=== PATIENT | male | born 1960 | race Caucasian/White ===

== ENCOUNTER → 2016-12-26 | Outpatient (CLI) | payer OTHER ==
--- NOTE | 2016-12-26 11:10 | XR ---
EXAMINATION TYPE: XR chest 2V DATE OF EXAM: 12/26/2016 11:05 AM HISTORY: J18.8 pneumonia. REFERENCE: Previous study dated 03/22/2015. FINDINGS: The lungs are clear. Pleural spaces are clear. Heart size is within normal limits. IMPRESSION: NO ACUTE INTRATHORACIC ABNORMALITY.
== END ==
LOC: RADXRMAIN 10:50
PROVIDERS: ATTEND Family Medicine
DX: J18.9 Pneumonia, unspecified organism (principal)
CPT/HCPCS: 71020

== ENCOUNTER → 2017-09-15 | Outpatient (CLI) | payer OTHER ==
--- NOTE | 2017-09-15 12:39 | ECHOF ---
Referral Reason:R07.9 Chest pain MEASUREMENTS -------- HEIGHT: 172.7 cm WEIGHT: 131.5 kg BP: RVIDd: 3.0 cm (< 3.3) IVSd: 1.3 cm (0.6 - 1.1) LVIDd: 4.9 cm (3.9 - 5.3) LVPWd: 1.3 cm (0.6 - 1.1) IVSs: 1.4 cm LVIDs: 3.8 cm LVPWs: 1.6 cm LA Diam: 3.4 cm (2.7 - 3.8) Ao Diam: 3.4 cm (2.0 - 3.7) AV Cusp: 1.5 cm (1.5 - 2.6) LA Diam: 3.8 cm (2.7 - 3.8) MV EXCURSION: 15.228 mm (> 18.000) MV EF SLOPE: 69 mm/s (70 - 150) EPSS: 0.2 cm MV E Chon: 0.61 m/s MV DecT: 250 ms MV A Chon: 0.79 m/s MV E/A Ratio: 0.78 RAP: 5.00 mmHg RVSP: 19.57 mmHg FINDINGS -------- Sinus rhythm. Morbid Obesity The left ventricular size is normal. There is mild concentric left ventricular hypertrophy. Overa ll left ventricular systolic function is low-normal with, an EF between 50 - 55 %. The right ventricle is normal in size. The left atrial size is normal. The right atrial size is normal. The aortic valve was not well visualized. Mild mitral regurgitation is present. Mild tricuspid regurgitation present. There is no evidence of pulmonary hypertension. The right v entricular systolic pressure, as measured by Doppler, is 19.57mmHg. The pulmonic valve was not well visualized. The aortic root size is normal. Echo free space represents a pericardial fat pad. CONCLUSIONS -------- 1. Morbid Obesity 2. The left ventricular size is normal. 3. There is mild concentric left ventricular hypertrophy. 4. Overall left ventricular systolic function is low-normal with, an EF between 50 - 55 %. 5. The aortic valve was not well visualized. 6. Mild mitral regurgitation is present. 7. Mild tricuspid regurgitation present. 8. There is no evidence of pulmonary hypertension. 9. The right ventricular systolic pressure, as measured by Doppler, is 19.57mmHg. 10. The pulmonic valve was not well visualized. 11. The aortic root size is normal. 12. Echo free space represents a pericardial fat pad. ATM SERVICER: Amanda Rangel RDCS
--- NOTE | 2017-09-15 13:28 | ECHOS ---
STRESS ECHOCARDIOGRAM DATE OF SERVICE: 09/15/2017 INDICATION OF THE STUDY: Chest pain. MEDICATIONS: BASELINE HEART RATE: 106 BASELINE BLOOD PRESSURE: 143/63 MAXIMUM HEART RATE: 135 MAXIMUM BLOOD PRESSURE: 177/68 85% MPHR: 141 100% MPHR: 166 METS: 5.6 MAXIMUM STAGE REACHED: II TOTAL EXERCISE TIME: 4 minutes CLINICAL INFORMATION: STRESS DATA: Pretesting physical examination showed a heart rate of 106, pressure is 143/63 mmHg. Baseline EKG showed sinus mechanism. The patient exercised on the treadmill according to Yamil protocol for a total of 4 minutes and achieved 5.6 METs. Max heart rate was 135, which is about 81% of maximum predicted heart rate. Maximum blood pressure was 177/68 mmHg. Clinically, the patient did not have any chest pain, but developed shortness of breath. The EKG did not show any significant ST or T-wave abnormalities consistent with ischemia. ECHOCARDIOGRAM IMAGES: On echocardiogram images from parasternal long axis view, parasternal short axis view, apical 4 chamber and apical 2 chamber views were obtained as the baseline images, at the peak of the heart rate, as well as on recovery. The echocardiogram images did not show any obvious wall motion abnormalities consistent with ischemia. CONCLUSION: 1. Average exercise capacity. 2. Normal EKG in response to exercise. 3. Normal echocardiogram in response to exercise. MMODL / IJN: [id number] /
== END | disposition home or self-care (01) ==
LOC: RADNMMAIN 09:59
PROVIDERS: ATTEND Family Medicine
DX: I08.1 Rheumatic disorders of both mitral and tricuspid valves (principal); E66.01 Morbid (severe) obesity due to excess calories
CPT/HCPCS: 93017; 93306; C8928; Q9950; 93350

== ENCOUNTER → 2019-02-09 | Outpatient (CLI) | payer OTHER ==
--- NOTE | 2019-02-09 16:29 | NM ---
EXAMINATION TYPE: NM DatScan Brain SPECT DATE OF EXAM: 02/09/2019 COMPARISON: NONE HISTORY: Trauma TECHNIQUE: 10 drops of Lugol's solution was administered 1 hour prior to injection as a thyroid bloc bhavya agent. After the administration of 4.59 mCi I-123 Ioflupane DaTscan. Images obtained 3 hours p ost injection. SPECT images of the brain were acquired with axial and coronal reconstructions. FINDINGS: There is normal uptake along the striata. Uptake is symmetric and normal in shape. IMPRESSION: Normal Amber scan
== END | disposition home or self-care (01) ==
LOC: RADNMMAIN 10:17
PROVIDERS: ATTEND Psychiatry & Neurology Neurology
DX: G25.0 Essential tremor (principal)
CPT/HCPCS: 78607; A9584

== ENCOUNTER 2020-05-15 17:38 | Emergency (ER) | payer OTHER ==
[2020-05-15 17:50] VITALS: TEMP 98.6
--- NOTE | 2020-05-15 17:58 | ED ---
Recheck HPI - General Chief Complaint: Recheck/Abnormal Lab/Rx Stated Complaint: hypertension Time Seen by Provider: 05/15/20 17:52 Source: patient, RN notes reviewed, old records reviewed Mode of arrival: wheelchair Limitations: no limitations - History of Present Illness Initial Comments: This is a 39-year-old male DF for evaluation patient has been noncompliant patient for both blood pressure medication as well as other medications including Coumadin. History of DVTs coming with lower extremity swelling shortness of breath episodic chest pain. No travel history sick contacts. No fevers, occasional cough and is also suffered from COPD. No recent hospitalizations. Patient states patient has recently lost his insurance and was unable to get medications for felt MD Complaint: medication refill request, other (Swelling of lower extremity shortness of breath and chest pain) -: days(s) Returns Today for: request for prescription, persistent/worsening pain related t o initial visit Symptoms Since Prior Visit: no new symptoms Context: planned re-check (Sent to ER for evaluation) Associated Symptoms: none Treatments Prior to Arrival: cold therapy - Related Data Previous Rx's Medication Instructions Recorded Metoprolol Tartrate [Lopressor] 25 mg PO BID #30 tablet 03/22/15 Metoprolol Tartrate [Lopressor] 50 mg PO BID #60 tab 05/15/20 Allergies Allergy/AdvReac Type Severity Reaction Status Date / Time Penicillins Allergy Rash/Hives Verified 05/15/20 17:50 venom-honey bee Allergy Anaphylaxis Verified 05/15/20 17:50 [bee venom (honey bee)] Review of Systems ROS Statement: Those systems with pertinent positive or pertinent negative responses have been documented in the HPI. ROS Other: All systems not noted in ROS Statement are negative. Past Medical History Past Medical History: COPD, Diabetes Mellitus, Deep Vein Thrombosis (DVT), Hypertension History of Any Multi-Drug Resistant Organisms: None Reported Past Surgical History: Hernia Repair, Orthopedic Surgery Additional Past Surgical History / Comment(s): recent removal of all upper teeth, olayinka toe amputation Past Psychological History: No Psychological Hx Reported Smoking Status: Current every day smoker Past Alcohol Use History: None Reported Past Drug Use History: Marijuana General Exam Limitations: no limitations General appearance: alert, in no apparent distress Head exam: Present: atraumatic, normocephalic, normal inspection Eye exam: Present: normal appearance, PERRL, EOMI. Absent: scleral icterus, conjunctival injection, periorbital swelling ENT exam: Present: normal exam, mucous membranes moist Neck exam: Present: normal inspection. Absent: tenderness, meningismus, lymphadenopathy Respiratory exam: Present: normal lung sounds bilaterally. Absent: respiratory distress, wheezes, rales, rhonchi, stridor Cardiovascular Exam: Present: regular rate, normal rhythm, normal heart sounds. Absent: systolic murmur, diastolic murmur, rubs, gallop, clicks GI/Abdominal exam: Present: soft, normal bowel sounds. Absent: distended, tenderness, guarding, rebound, rigid Extremities exam: Present: normal inspection, full ROM, normal capillary refill. Absent: tenderness, pedal edema, joint swelling, calf tenderness Back exam: Present: normal inspection Neurological exam: Present: alert, oriented X3, CN II-XII intact Psychiatric exam: Present: normal affect, normal mood Skin exam: Present: warm, dry, intact, normal color. Absent: rash Course Vital Signs 05/15/20 05/15/20 05/15/20 17:45 18:21 18:27 Temperature 98.6 F Pulse Rate 98 89 Respiratory 18 20 22 Rate Blood Pressure 155/92 O2 Sat by Pulse 99 Oximetry 05/15/20 05/15/20 18:43 19:08 Temperature Pulse Rate 92 85 Respiratory 20 18 Rate Blood Pressure 120/68 O2 Sat by Pulse 98 Oximetry - Reevaluation(s) Reevaluation #1: 05/15/20 19:14 Medical record is reviewed Reevaluation #2: 05/15/20 20:04 Patient feels much improved no significant complaints here in the ER Reevaluation #3: 05/15/20 20:04 Patient feels good for discharge with the medication refill 05/15/20 20:04 Patient is not on blood thinners but to fact that he has no DVT or PE and exams, we will hold blood thinners Medical Decision Making - Medical Decision Making 59 male DF for evaluation presents today for evaluation regards to multiple complaints foot blood pressure being abnormal shortness of breath and swelling of lower extremities. Patient does have mild heart failure, breathing. Patient appropriate. We'll refill patient's blood pressure medication and can be discharged home - Lab Data Result diagrams: 05/15/20 18:13 05/15/20 18:13 Lab Results 05/15/20 05/15/2005/15/20 Range/Units 18:13 18:13 18:13 WBC 10.4 (3.8-10.6) k/uL RBC 5.09 (4.30-5.90) m/uL Hgb 16.0 (13.0-17.5) gm/dL Hct 49.0 (39.0-53.0) % MCV 96.4 (80.0-100.0) fL MCH 31.5 (25.0-35.0) pg MCHC 32.6 (31.0-37.0) g/dL RDW 12.6 (11.5-15.5) % Plt Count 278 (150-450) k/uL Neutrophils % 49 % Lymphocytes % 38 % Monocytes % 5 % Eosinophils % 6 % Basophils % 1 % Neutrophils # 5.2 (1.3-7.7) k/uL Lymphocytes # 3.9 (1.0-4.8) k/uL Monocytes # 0.5 (0-1.0) k/uL Eosinophils # 0.6 (0-0.7) k/uL Basophils # 0.1 (0-0.2) k/uL PT 9.5 (9.0-12.0) sec INR 0.9 (<1.2) APTT 20.7 L (22.0-30.0) sec D-Dimer 0.29 (<0.60) mg/L FEU Sodium 139 (137-145) mmol/L Potassium 4.3 (3.5-5.1) mmol/L Chloride 106 (98-107) mmol/L Carbon Dioxide 25 (22-30) mmol/L Anion Gap 8 mmol/L BUN 12 (9-20) mg/dL Creatinine 0.83 (0.66-1.25) mg/dL Est GFR (CKD-EPI)AfAm >90 (>60 ml/min/1.73 sqM) Est GFR (CKD-EPI)NonAf >90 (>60 ml/min/1.73 sqM) Glucose 185 H (74-99) mg/dL Calcium 9.7 (8.4-10.2) mg/dL Phosphorus 3.5 (2.5-4.5) mg/dL Magnesium 1.8 (1.6-2.3) mg/dL Total Bilirubin 0.6 (0.2-1.3) mg/dL AST 30 (17-59) U/L ALT 24 (4-49) U/L Alkaline Phosphatase 68 (38-126) U/L Creatine Kinase 52 L (55-170) U/L Troponin I (0.000-0.034) ng/mL NT-Pro-B Natriuret Pep pg/mL Total Protein 7.6 (6.3-8.2) g/dL Albumin 4.4 (3.5-5.0) g/dL 05/15/20 05/15/20 Range/Units 18:13 18:13 WBC (3.8-10.6) k/uL RBC (4.30-5.90) m/uL Hgb (13.0-17.5) gm/dL Hct (39.0-53.0) % MCV (80.0-100.0) fL MCH (25.0-35.0) pg MCHC (31.0-37.0) g/dL RDW (11.5-15.5) % Plt Count (150-450) k/uL Neutrophils % % Lymphocytes % % Monocytes % % Eosinophils % % Basophils % % Neutrophils # (1.3-7.7) k/uL Lymphocytes # (1.0-4.8) k/uL Monocytes # (0-1.0) k/uL Eosinophils # (0-0.7) k/uL Basophils # (0-0.2) k/uL PT (9.0-12.0) sec INR (<1.2) APTT (22.0-30.0) sec D-Dimer (<0.60) mg/L FEU Sodium (137-145) mmol/L Potassium (3.5-5.1) mmol/L Chloride (98-107) mmol/L Carbon Dioxide (22-30) mmol/L Anion Gap mmol/L BUN (9-20) mg/dL Creatinine (0.66-1.25) mg/dL Est GFR (CKD-EPI)AfAm (>60 ml/min/1.73 sqM) Est GFR (CKD-EPI)NonAf (>60 ml/min/1.73 sqM) Glucose (74-99) mg/dL Calcium (8.4-10.2) mg/dL Phosphorus (2.5-4.5) mg/dL Magnesium (1.6-2.3) mg/dL Total Bilirubin (0.2-1.3) mg/dL AST (17-59) U/L ALT (4-49) U/L Alkaline Phosphatase (38-126) U/L Creatine Kinase (55-170) U/L Troponin I <0.012 (0.000-0.034) ng/mL NT-Pro-B Natriuret Pep 34 pg/mL Total Protein (6.3-8.2) g/dL Albumin (3.5-5.0) g/dL - EKG Data -: EKG Interpreted by Me (EKG is sinus rhythm 97 HI 134 QRS 160 QTc 474) - Radiology Data Radiology results: report reviewed (Ultrasound bilateral lower extremities and CT chest is negative for acute disease, chest x-ray is also negative), image reviewed Disposition Clinical Impression: Hypertension, COPD (chronic obstructive pulmonary disease), Bilateral leg edema Disposition: HOME SELF-CARE Condition: Good Instructions (If sedation given, give patient instructions): Hypertension (ED), Leg Edema (ED) Prescriptions: Metoprolol Tartrate [Lopressor] 50 mg PO BID #60 tab Is patient prescribed a controlled substance at d/c from ED?: No Referrals: Evelyn Cash MD [Primary Care Provider] - 1-2 days
[2020-05-15] MEDS ORDERED: IPRATROPIUM-ALBUTEROL 3 ML NEB INHALATION STA (18:12)
[2020-05-15] MEDS ORDERED: LABETALOL 5 MG/ML VIAL MDV IVP STA (18:12)
[2020-05-15 18:32] LABS: Basophils # (A) 0.1 k/uL (0-0.2); Basophils % (A) 1 %; Eosinophils # (A) 0.6 k/uL (0-0.7); Eosinophils % (A) 6 %; Lymphocytes # (A) 3.9 k/uL (1.0-4.8); Lymphocytes % (A) 38 %; MCH 31.5 pg (25.0-35.0); MCHC 32.6 g/dL (31.0-37.0); MCV 96.4 fL (80.0-100.0); Mean Platelet Volume 6.6; Monocytes # (A) 0.5 k/uL (0-1.0); Monocytes % (A) 5 %; Neutrophils # (A) 5.2 k/uL (1.3-7.7); Neutrophils % (A) 49 %; Platelet Count 278 k/uL (150-450); RBC 5.09 m/uL (4.30-5.90); RDW 12.6 % (11.5-15.5); WBC 10.4 k/uL (3.8-10.6)
--- NOTE | 2020-05-15 18:37 | XR ---
EXAMINATION TYPE: XR chest 2V DATE OF EXAM: 05/15/2020 COMPARISON: Prior chest x-ray 12/26/2016 HISTORY: Weakness and shortness of breath TECHNIQUE: Frontal and lateral views of the chest are obtained. FINDINGS: There is no focal air space opacity, pleural effusion, or pneumothorax seen. The cardiac silhouette size is within normal limits. The osseous structures are intact, there is thoracic spond ylosis. IMPRESSION: No acute cardiopulmonary process.
[2020-05-15 18:38] LABS: ALT 24 U/L (4-49); AST 30 U/L (17-59); African American GFR (CKD) >90 (>60 ml/min/1.73 sqM); Albumin 4.4 g/dL (3.5-5.0); Alkaline Phosphatase 68 U/L (38-126); Anion Gap 8 mmol/L; Blood Urea Nitrogen 12 mg/dL (9-20); Calcium 9.7 mg/dL (8.4-10.2); Carbon Dioxide 25 mmol/L (22-30); Chloride 106 mmol/L (98-107); Creatine Kinase 52 U/L (55-170); Glucose 185 mg/dL (74-99); Magnesium 1.8 mg/dL (1.6-2.3); Non-African American GFR(CKD) >90 (>60 ml/min/1.73 sqM); Phosphorus 3.5 mg/dL (2.5-4.5); Potassium 4.3 mmol/L (3.5-5.1); Sodium 139 mmol/L (137-145); Total Bilirubin 0.6 mg/dL (0.2-1.3); Total Protein 7.6 g/dL (6.3-8.2)
[2020-05-15] MEDS ORDERED: MORPHINE SULFATE 4 MG/ML SYRINGE IVP STA (18:57)
[2020-05-15] MEDS ORDERED: MORPHINE SULFATE 4 MG/ML SYRINGE IVP PRN (18:57)
[2020-05-15 18:59] LABS: D-Dimer 0.29 mg/L FEU (<0.60); INR 0.9 (<1.2); Prothrombin Time 9.5 sec (9.0-12.0)
[2020-05-15 19:12] LABS: Partial Thromboplastin Time 20.7 sec (22.0-30.0)
--- NOTE | 2020-05-15 19:30 | US ---
EXAMINATION TYPE: US venous doppler duplex LE DATE OF EXAM: 05/15/2020 7:14 PM COMPARISON: NONE CLINICAL HISTORY: pain. Pain bilateral legs. Hx DVT per patient. Patient does not take blood thinners . SIDE PERFORMED: Bilateral TECHNIQUE: The lower extremity deep venous system is examined utilizing real time linear array sonog lyssa with graded compression, doppler sonography and color-flow sonography. VESSELS IMAGED: External Iliac Vein (EIV) Common Femoral Vein Deep Femoral Vein Greater Saphenous Vein * Femoral Vein Popliteal Vein Small Saphenous Vein * Proximal Calf Veins (* superficial vessels) Grayscale, color Doppler, spectral Doppler imaging performed of the deep veins of the lower extremiti es Right Leg: No evidence of DVT in veins imaged at this time from prox calf veins to EIV. Left Leg: No evidence of DVT in veins imaged at this time from prox calf veins to EIV. IMPRESSION: No deep venous thrombosis at or above the knees bilaterally.
--- NOTE | 2020-05-15 19:50 | CT ---
EXAMINATION TYPE: CT angio chest DATE OF EXAM: 05/15/2020 COMPARISON: Left wrist and left hand HISTORY: Leg pain, history of dvt, elevated blood pressure and headache. CT DLP: 713.4 mGycm Automated exposure control for dose reduction was used. CONTRAST: CTA scan of the thorax is performed with IV Contrast, patient injected with 100 mL of Isovue 370, pul monary embolism protocol. MIP images are created and reviewed. 3D reconstructed images are created on an independent workstation and reviewed. FINDINGS: LUNGS: The lungs are grossly clear, there is no concerning parenchymal mass or nodule identified. T here is no pleural effusion or pneumothorax seen. The tracheobronchial tree is patent. AORTA: Proximal descending aorta is ectatic at 3.2 cm. MEDIASTINUM: There is satisfactory enhancement of the pulmonary artery and its branches, there is no CT evidence for pulmonary embolism. There are no greater than 1 cm hilar or mediastinal lymph nodes. No pericardial effusion is seen. OTHER: Reflux of contrast into the inferior vena cava and hepatic veins is noted, correlate to exclu de right heart failure. IMPRESSION: NO EVIDENT PULMONARY EMBOLISM. PROXIMAL DESCENDING AORTA SHOWS ECTASIA, ADDITIONAL FINDINGS ABOVE
[2020-05-15] MEDS ORDERED: methylPREDNISolone SOD SUCCI 125 MG/2 ML VIAL IV STA (20:06)
[2020-05-15] MEDS ORDERED: FUROSEMIDE 10 MG/ML 4 ML VIAL IV STA (20:06)
[2020-05-15] MEDS ORDERED: ACET/COD 300 MG/30 MG STARTER PACK 6 TAB BTL PO STA (20:16)
[2020-05-15 20:22] VITALS: BP 132/68; PULSE 83; RESP 16
== END 2020-05-15 20:22 | disposition home or self-care (01) ==
LOC: EC 17:38
DX: I10 Essential (primary) hypertension (principal); J44.9 Chronic obstructive pulmonary disease, unspecified; R60.0 Localized edema; F17.200 Nicotine dependence, unspecified, uncomplicated; Z88.0 Allergy status to penicillin; Z91.030 Bee allergy status; Z86.718 Personal history of other venous thrombosis and embolism; Z91.19 Patient's noncompliance with other medical treatment and regimen
CPT/HCPCS: 36415; 94640; 93005; 85379; 83880; 80053; 82550; 83735; 84100; 84484; 85025; 85610; 85730; 71046; 93970; 71275; 99284; 96374; 96375 ×3; J2270; J1940; J2930; Q9967

== ENCOUNTER 2020-08-13 13:58 | Emergency (ER) | payer OTHER ==
[2020-08-13 14:11] VITALS: TEMP 99.1
[2020-08-13] MEDS ORDERED: SODIUM CHLORIDE 0.9% 500 ML 500 ML IV STA ×2 (15:09→17:36)
[2020-08-13] MEDS ORDERED: IPRATROPIUM-ALBUTEROL 3 ML NEB INHALATION STA (15:09)
[2020-08-13] MEDS ORDERED: MORPHINE SULFATE 2 MG/ML SYRINGE IVP STA (15:14)
[2020-08-13] MEDS ORDERED: methylPREDNISolone SOD SUCCI 125 MG/2 ML VIAL IV STA (15:15)
--- NOTE | 2020-08-13 15:17 | ED ---
General Adult HPI - General Source: patient, RN notes reviewed Mode of arrival: wheelchair Limitations: no limitations <Hector Pinzon - Last Filed: 08/13/20 17:53> <Chanelle Kothari - Last Filed: 08/14/20 13:21> - General Chief complaint: Shortness of Breath Stated complaint: High BP, Diff Breathing, COPD Time Seen by Provider: 08/13/20 14:59 - History of Present Illness Initial comments: 59-year-old male with a past medical history of COPD, diabetes mellitus, DVT, hypertension presents to the emergency room for a chief complaint of cough and shortness of breath for the past 3 days. The cough is productive at times. States when he coughs he feels a soreness in his chest. Denies any chest pain if he is not coughing. States it hurts to press on his chest. Patient states he does not have an inhaler at home because he has not followed up with his doctor. He denies fevers. Patient has no other complaints at this time including abdominal pain, nausea or vomiting, headache, or visual changes. (Hector Pinzon) - Related Data Home Medications Medication Instructions Recorded Confirmed Ibuprofen [Motrin Ib] 400 - 600 mg PO Q4-6H PRN 08/13/20 08/13/20 Previous Rx's Medication Instructions Recorded Albuterol Inhaler [Ventolin Hfa 2 puff INHALATION RT-QID PRN #1 08/13/20 Inhaler] inhaler Azithromycin [Zithromax Z-pack (6 250 mg PO DIRECTED #6 tab 08/13/20 tabs)] Metoprolol Tartrate [Lopressor] 50 mg PO BID #30 tab 08/13/20 predniSONE 50 mg PO DAILY #5 tablet 08/13/20 Allergies Allergy/AdvReac Type Severity Reaction Status Date / Time acetaminophen [From Fioricet] Allergy Anaphylaxis Verified 08/13/20 17:16 butalbital [From Fioricet] Allergy Anaphylaxis Verified 08/13/20 17:16 caffeine [From Fioricet] Allergy Anaphylaxis Verified 08/13/20 17:16 Penicillins Allergy Rash/Hives Verified 08/13/20 17:16 venom-honey bee Allergy Anaphylaxis Verified 08/13/20 17:16 [bee venom (honey bee)] Review of Systems ROS Other: All systems not noted in ROS Statement are negative. <Hector Pinzon P - Last Filed: 08/13/20 17:53> ROS Other: All systems not noted in ROS Statement are negative. <Chanelle Kothari Omayra - Last Filed: 08/14/20 13:21> ROS Statement: Those systems with pertinent positive or pertinent negative responses have been documented in the HPI. Past Medical History Past Medical History: COPD, Diabetes Mellitus, Deep Vein Thrombosis (DVT), Hypertension History of Any Multi-Drug Resistant Organisms: None Reported Past Surgical History: Hernia Repair, Orthopedic Surgery Additional Past Surgical History / Comment(s): recent removal of all upper teeth, olayinka toe amputation Past Psychological History: No Psychological Hx Reported Smoking Status: Current every day smoker Past Alcohol Use History: None Reported Past Drug Use History: Marijuana <Hector Pinzon P - Last Filed: 08/13/20 17:53> General Exam Limitations: no limitations General appearance: alert, in no apparent distress Head exam: Present: atraumatic, normocephalic, normal inspection Eye exam: Present: normal appearance, PERRL, EOMI. Absent: scleral icterus, conjunctival injection, periorbital swelling ENT exam: Present: normal exam, mucous membranes moist Neck exam: Present: normal inspection, full ROM. Absent: tenderness, meningismu s Respiratory exam: Present: wheezes, chest wall tenderness (Generalized anterior chest wall tenderness.). Absent: respiratory distress, rales, rhonchi, stridor Cardiovascular Exam: Present: regular rate, normal rhythm, normal heart sounds. Absent: systolic murmur, diastolic murmur, rubs, gallop, clicks GI/Abdominal exam: Present: soft, normal bowel sounds. Absent: distended, tenderness, guarding, rebound, rigid Neurological exam: Present: alert <Hector Pinzon - Last Filed: 08/13/20 17:53> Course Vital Signs 08/13/20 08/13/20 08/13/20 14:09 15:46 15:55 Temperature 99.1 F Pulse Rate 91 90 Respiratory 32 H 20 Rate Blood Pressure 175/93 177/82 O2 Sat by Pulse 100 98 Oximetry 08/13/20 16:02 Temperature Pulse Rate 90 Respiratory Rate Blood Pressure O2 Sat by Pulse Oximetry EKG Findings - EKG Comments: EKG Findings:: Normal sinus rhythm, ventricular rate 74, NE interval 120, QTC 4 57, evaluated by Dr. Kothari <Hector Pinzon - Last Filed: 08/13/20 17:53> Medical Decision Making - Lab Data Result diagrams: 08/13/20 15:25 08/13/20 15:25 <Hector Pinzon - Last Filed: 08/13/20 17:53> - Lab Data Result diagrams: 08/13/20 15:25 08/13/20 15:25 <Chanelle Kothari - Last Filed: 08/14/20 13:21> - Medical Decision Making HPI and physical exam as documented. Patient initially presents with a slightly elevated respiratory rate of 32 however this did improve. No respira tory distress. 100% on room air. Laboratory evaluation was performed. CBC unremarkable. White blood cell count is less than 12. CMP unremarkable. Troponin negative. EKG nonischemic. D-dimer is within normal limits. COVID and influenza are negative. Chest x-ray shows increased density right medial lung base that may reflect developing infiltrate. This is clinically correlated as patient does have a cough. Patient was treated with antibiotics and DuoNeb and feeling much better. He was also given steroids. Patient does not meet Sirs criteria. Lactic acidosis is likely secondary to dehydration. I offered patient admission however he prefers to be discharged home given pandemic. He is agreeable to returning if he has any worsening symptoms.I discussed this case with attending Dr. Kothari who agrees with this assessment and treatment plan. (Hector Pinzon) I was available for consultation in the emergency department. The history and physical exam were done by the midlevel provider. I was consulted for this patients care. I reviewed the case with the midlevel provider and based on their presentation of the patient, I agree with the assessment, medical decision making and plan of care as documented. Admission recommended however patient refused due to covid Chart was dictated using Layer dictation software. Attempts were made to correct any dictation errors however some typographical errors may persist. Patient was seen during a national state of emergency due to the Covid-19 pandemic. (Chanelle Kothari) - Lab Data Lab Results 08/13/20 08/13/20 08/13/20 Range/Units 15:25 15:25 15:25 WBC 10.1 (3.8-10.6) k/uL RBC 4.84 (4.30-5.90) m/uL Hgb 15.9 (13.0-17.5) gm/dL Hct 47.0 (39.0-53.0) % MCV 97.0 (80.0-100.0) fL MCH 32.9 (25.0-35.0) pg MCHC 33.9 (31.0-37.0) g/dL RDW 12.6 (11.5-15.5) % Plt Count 263 (150-450) k/uL MPV 7.3 Neutrophils % 65 % Lymphocytes % 25 % Monocytes % 4 % Eosinophils % 4 % Basophils % 1 % Neutrophils # 6.5 (1.3-7.7) k/uL Lymphocytes # 2.5 (1.0-4.8) k/uL Monocytes # 0.4 (0-1.0) k/uL Eosinophils # 0.4 (0-0.7) k/uL Basophils # 0.1 (0-0.2) k/uL PT (9.0-12.0) sec INR (<1.2) APTT (22.0-30.0) sec D-Dimer (<0.60) mg/L FEU Sodium 138 (137-145) mmol/L Potassium 4.5 (3.5-5.1) mmol/L Chloride 107 (98-107) mmol/L Carbon Dioxide 27 (22-30) mmol/L Anion Gap 4 mmol/L BUN 12 (9-20) mg/dL Creatinine 0.82 (0.66-1.25) mg/dL Est GFR (CKD-EPI)AfAm >90 (>60 ml/min/1.73 sqM) Est GFR (CKD-EPI)NonAf >90 (>60 ml/min/1.73 sqM) Glucose 165 H (74-99) mg/dL Lactic Ac Sepsis Rflx Plasma Lactic Acid Ajit 2.3 H* (0.7-2.0) mmol/L Calcium 9.5 (8.4-10.2) mg/dL Magnesium 1.8 (1.6-2.3) mg/dL Total Bilirubin 0.6 (0.2-1.3) mg/dL AST 25 (17-59) U/L ALT 22 (4-49) U/L Alkaline Phosphatase 56 (38-126) U/L Troponin I (0.000-0.034) ng/mL NT-Pro-B Natriuret Pep pg/mL Total Protein 6.8 (6.3-8.2) g/dL Albumin 4.0 (3.5-5.0) g/dL Coronavirus (PCR) (Not Detectd) Influenza Type A RNA (Not Detectd) Influenza Type B (PCR) (Not Detectd) 08/13/20 08/13/20 08/13/20 Range/Units 15:25 15:25 15:25 WBC (3.8-10.6) k/uL RBC (4.30-5.90) m/uL Hgb (13.0-17.5) gm/dL Hct (39.0-53.0) % MCV (80.0-100.0) fL MCH (25.0-35.0) pg MCHC (31.0-37.0) g/dL RDW (11.5-15.5) % Plt Count (150-450) k/uL MPV Neutrophils % % Lymphocytes % % Monocytes % % Eosinophils % % Basophils % % Neutrophils # (1.3-7.7) k/uL Lymphocytes # (1.0-4.8) k/uL Monocytes # (0-1.0) k/uL Eosinophils # (0-0.7) k/uL Basophils # (0-0.2) k/uL PT (9.0-12.0) sec INR (<1.2) APTT (22.0-30.0) sec D-Dimer (<0.60) mg/L FEU Sodium (137-145) mmol/L Potassium (3.5-5.1) mmol/L Chloride (98-107) mmol/L Carbon Dioxide (22-30) mmol/L Anion Gap mmol/L BUN (9-20) mg/dL Creatinine (0.66-1.25) mg/dL Est GFR (CKD-EPI)AfAm (>60 ml/min/1.73 sqM) Est GFR (CKD-EPI)NonAf (>60 ml/min/1.73 sqM) Glucose (74-99) mg/dL Lactic Ac Sepsis Rflx Plasma Lactic Acid Ajit (0.7-2.0) mmol/L Calcium (8.4-10.2) mg/dL Magnesium (1.6-2.3) mg/dL Total Bilirubin (0.2-1.3) mg/dL AST (17-59) U/L ALT (4-49) U/L Alkaline Phosphatase (38-126) U/L Troponin I <0.012 (0.000-0.034) ng/mL NT-Pro-B Natriuret Pep 253 pg/mL Total Protein (6.3-8.2) g/dL Albumin (3.5-5.0) g/dL Coronavirus (PCR) Not Detected (Not Detectd) Influenza Type A RNA (Not Detectd) Influenza Type B (PCR) (Not Detectd) 08/13/20 08/13/20 08/13/20 Range/Units 15:25 15:54 16:27 WBC (3.8-10.6) k/uL RBC (4.30-5.90) m/uL Hgb (13.0-17.5) gm/dL Hct (39.0-53.0) % MCV (80.0-100.0) fL MCH (25.0-35.0) pg MCHC (31.0-37.0) g/dL RDW (11.5-15.5) % Plt Count (150-450) k/uL MPV Neutrophils % % Lymphocytes % % Monocytes % % Eosinophils % % Basophils % % Neutrophils # (1.3-7.7) k/uL Lymphocytes # (1.0-4.8) k/uL Monocytes # (0-1.0) k/uL Eosinophils # (0-0.7) k/uL Basophils # (0-0.2) k/uL PT 9.8 (9.0-12.0) sec INR 0.9 (<1.2) APTT 20.4 L (22.0-30.0) sec D-Dimer 0.23 (<0.60) mg/L FEU Sodium (137-145) mmol/L Potassium (3.5-5.1) mmol/L Chloride (98-107) mmol/L Carbon Dioxide (22-30) mmol/L Anion Gap mmol/L BUN (9-20) mg/dL Creatinine (0.66-1.25) mg/dL Est GFR (CKD-EPI)AfAm (>60 ml/min/1.73 sqM) Est GFR (CKD-EPI)NonAf (>60 ml/min/1.73 sqM) Glucose (74-99) mg/dL Lactic Ac Sepsis Rflx Y Plasma Lactic Acid Ajit (0.7-2.0) mmol/L Calcium (8.4-10.2) mg/dL Magnesium (1.6-2.3) mg/dL Total Bilirubin (0.2-1.3) mg/dL AST (17-59) U/L ALT (4-49) U/L Alkaline Phosphatase (38-126) U/L Troponin I (0.000-0.034) ng/mL NT-Pro-B Natriuret Pep pg/mL Total Protein (6.3-8.2) g/dL Albumin (3.5-5.0) g/dL Coronavirus (PCR) (Not Detectd) Influenza Type A RNA Not Detected (Not Detectd) Influenza Type B (PCR) Not Detected (Not Detectd) Disposition Is patient prescribed a controlled substance at d/c from ED?: No Time of Disposition: 17:58 <Hector Pinzon P - Last Filed: 08/13/20 17:53> <Chanelle Kothari - Last Filed: 08/14/20 13:21> Clinical Impression: COPD exacerbation, Pneumonia Disposition: HOME SELF-CARE Condition: Good Instructions (If sedation given, give patient instructions): COPD (Chronic Obstructive Pulmonary Disease) (ED), Pneumonia (ED) Additional Instructions: Please take medications as directed. You were already given steroid and antibiotic today so you may start these tomorrow. Follow-up with your doctor. If you develop worsening symptoms or worsening shortness of breath return to the emergency room. Prescriptions: Metoprolol Tartrate [Lopressor] 50 mg PO BID #30 tab predniSONE 50 mg PO DAILY #5 tablet Albuterol Inhaler [Ventolin Hfa Inhaler] 2 puff INHALATION RT-QID PRN #1 inhaler PRN Reason: Shortness Of Breath Azithromycin [Zithromax Z-pack (6 tabs)] 250 mg PO DIRECTED #6 tab Referrals: Evelyn Cash MD [Primary Care Provider] - 1-2 days
[2020-08-13 15:38] LABS: Basophils # (A) 0.1 k/uL (0-0.2); Basophils % (A) 1 %; Eosinophils # (A) 0.4 k/uL (0-0.7); Eosinophils % (A) 4 %; HGB 15.9 gm/dL (13.0-17.5); Lymphocytes # (A) 2.5 k/uL (1.0-4.8); Lymphocytes % (A) 25 %; MCH 32.9 pg (25.0-35.0); MCHC 33.9 g/dL (31.0-37.0); Mean Platelet Volume 7.3; Monocytes # (A) 0.4 k/uL (0-1.0); Monocytes % (A) 4 %; Neutrophils # (A) 6.5 k/uL (1.3-7.7); Neutrophils % (A) 65 %; Platelet Count 263 k/uL (150-450); RBC 4.84 m/uL (4.30-5.90); RDW 12.6 % (11.5-15.5); WBC 10.1 k/uL (3.8-10.6)
[2020-08-13 15:46] LABS: ALT 22 U/L (4-49); AST 25 U/L (17-59); African American GFR (CKD) >90 (>60 ml/min/1.73 sqM); Alkaline Phosphatase 56 U/L (38-126); Anion Gap 4 mmol/L; Blood Urea Nitrogen 12 mg/dL (9-20); Calcium 9.5 mg/dL (8.4-10.2); Carbon Dioxide 27 mmol/L (22-30); Chloride 107 mmol/L (98-107); Glucose 165 mg/dL (74-99); Magnesium 1.8 mg/dL (1.6-2.3); Non-African American GFR(CKD) >90 (>60 ml/min/1.73 sqM); Potassium 4.5 mmol/L (3.5-5.1); Sodium 138 mmol/L (137-145); Total Bilirubin 0.6 mg/dL (0.2-1.3); Total Protein 6.8 g/dL (6.3-8.2)
[2020-08-13 15:47] VITALS: BP 177/82; RESP 20
--- NOTE | 2020-08-13 15:49 | XR ---
EXAMINATION TYPE: XR chest 1V portable DATE OF EXAM: 08/13/2020 HISTORY: Shortness of breath. COMPARISON: 05/15/2020 TECHNIQUE: Single view of the chest is submitted. FINDINGS: Demonstrated are scattered senescent parenchymal change. Increased density right medial lung base may reflect developing infiltrate. Correlate clinically and progress studies are recommended. The heart is stable. Hilar and mediastinal structures are within normal limits. Degenerative changes are seen of the dorsal spine. IMPRESSION: 1. Increased density right medial lung base may reflect developing infiltrate. Correlate clinically and progress studies are recommended.
[2020-08-13 15:56] VITALS: PULSE 90
[2020-08-13] MEDS ORDERED: cefTRIAXone IN SWFI 1,000 MG/10 ML SYRINGE IVP STA (16:37)
[2020-08-13 16:49] LABS: D-Dimer 0.23 mg/L FEU (<0.60); INR 0.9 (<1.2); Prothrombin Time 9.8 sec (9.0-12.0)
[2020-08-13 16:55] LABS: Partial Thromboplastin Time 20.4 sec (22.0-30.0)
[2020-08-13] MEDS ORDERED: AZITHROMYCIN 500 MG TAB PO STA (17:58)
[2020-08-13] MEDS ORDERED: traMADol 50 MG STARTER PACK 3 TAB BTL PO STA (17:59)
== END 2020-08-13 18:47 | disposition home or self-care (01) ==
LOC: EC 13:58
DX: J44.1 Chronic obstructive pulmonary disease with (acute) exacerbation (principal); J18.9 Pneumonia, unspecified organism; E87.2 Acidosis; F17.200 Nicotine dependence, unspecified, uncomplicated; Z88.6 Allergy status to analgesic agent; Z88.0 Allergy status to penicillin; Z88.8 Allergy status to other drugs, medicaments and biological substances; Z91.018 Allergy to other foods; Z91.030 Bee allergy status; Z86.718 Personal history of other venous thrombosis and embolism; Z20.828 Contact with and (suspected) exposure to other viral communicable diseases
CPT/HCPCS: 36415; 94640; 93005; 85379; 83880; 80053; 83605; 83735; 84484; 85025; 85610; 85730; 87040; 87502; 87635; 71045; 99285; 96374; 96375 ×2; 96361; J2930; J0696; J2270

== ENCOUNTER 2021-04-12 13:42 | Inpatient (IN) | payer OTHER ==
[2021-04-12 14:33] LABS: Basophils # (A) 0.1 k/uL (0-0.2); Basophils % (A) 1 %; Eosinophils # (A) 0.9 k/uL (0-0.7); Eosinophils % (A) 9 %; HCT 42.7 % (39.0-53.0); HGB 14.5 gm/dL (13.0-17.5); Lymphocytes # (A) 2.2 k/uL (1.0-4.8); Lymphocytes % (A) 21 %; MCH 34.1 pg (25.0-35.0); MCV 100.2 fL (80.0-100.0); Macrocytosis Slight; Mean Platelet Volume 7.1; Monocytes # (A) 0.4 k/uL (0-1.0); Monocytes % (A) 4 %; Neutrophils # (A) 6.5 k/uL (1.3-7.7); Neutrophils % (A) 63 %; Platelet Count 290 k/uL (150-450); RBC 4.26 m/uL (4.30-5.90); RDW 13.6 % (11.5-15.5); WBC 10.2 k/uL (3.8-10.6)
--- NOTE | 2021-04-12 14:41 | XR ---
EXAMINATION TYPE: XR chest 2V DATE OF EXAM: 04/12/2021 COMPARISON: 10/14/2019 HISTORY: 60 year-old male shortness of breath, cough, difficulty breathing TECHNIQUE: PA and lateral views FINDINGS: Heart normal size. Urinary vasculature within normal limits. Bilateral interstitial prominence. No co nsolidation or pleural effusion. IMPRESSION: Interstitial prominence could represent bronchitis or asthma. Correlate to exclude early atypical pne umonia. No focal infiltrate.
[2021-04-12 14:49] LABS: ALT 25 U/L (4-49); AST 31 U/L (17-59); African American GFR (CKD) >90 (>60 ml/min/1.73 sqM); Albumin 4.1 g/dL (3.5-5.0); Alkaline Phosphatase 56 U/L (38-126); Anion Gap 10 mmol/L; Blood Urea Nitrogen 10 mg/dL (9-20); Calcium 9.7 mg/dL (8.4-10.2); Carbon Dioxide 22 mmol/L (22-30); Chloride 105 mmol/L (98-107); Glucose 236 mg/dL (74-99); Non-African American GFR(CKD) >90 (>60 ml/min/1.73 sqM); Potassium 4.4 mmol/L (3.5-5.1); Sodium 137 mmol/L (137-145); Total Bilirubin 0.5 mg/dL (0.2-1.3); Total Protein 6.5 g/dL (6.3-8.2)
[2021-04-12 14:54] LABS: Partial Thromboplastin Time 21.6 sec (22.0-30.0); Prothrombin Time 10.3 sec (9.0-12.0)
[2021-04-12] MEDS ORDERED: methylPREDNISolone SOD SUCCI 125 MG/2 ML VIAL IV STA (15:18)
[2021-04-12] MEDS ORDERED: IPRATROPIUM-ALBUTEROL 3 ML NEB INHALATION STA (15:18)
[2021-04-12] MEDS ORDERED: HYDROmorphone 1 MG/ML 1 ML SYRINGE IVP STA ×2 (15:18→18:39)
[2021-04-12] MEDS ORDERED: ONDANSETRON 4 MG/2 ML VIAL IVP STA (15:18)
[2021-04-12] MEDS ORDERED: ALBUTEROL NEBULIZED 2.5 MG/3 ML INHALATION STA (15:18)
[2021-04-12] MEDS ORDERED: SODIUM CHLORIDE 0.9% 1,000 ML IV ONE (15:32)
--- NOTE | 2021-04-12 16:21 | ED ---
SOB HPI - General Chief Complaint: Shortness of Breath Stated Complaint: SOB, right side chest pain Time Seen by Provider: 04/12/21 15:02 Source: patient Mode of arrival: ambulatory Limitations: no limitations - History of Present Illness Initial Comments: 60 year-old male patient presents to the emergency department for evaluation of shortness of breath and cough. States he has been sick for the last month. States he has completed two courses of antibiotics. States he feels like he is getting worse. He is using home nebulizer and inhaler more than prescribed. States he is having significant pain to the right lateral chest with coughing and deep breathing. Does smoke cigarettes has history of COPD. States he has felt feverish and sweaty. Reports post tussive vomiting. Denies diarrhea or abdominal pain. Patient denies any recent rash, constipation, back pain, numbness, tingling, dizziness, weakness, hematuria, dysuria, urinary urgency, urinary frequency, visual changes, or any other complaints. - Related Data Home Medications Medication Instructions Recorded Confirmed Acetaminophen Tab [Tylenol Tab] 500 mg PO Q6H PRN 04/12/21 04/12/21 Apixaban [Eliquis] 2.5 mg PO BID 04/12/21 04/12/21 Atorvastatin Calcium [Lipitor] 80 mg PO HS 04/12/21 04/12/21 Ergocalciferol (Vitamin D2) 1,250 mcg PO MO 04/12/21 04/12/21 [Drisdol (50,000 Iu)] Gabapentin 600 mg PO TID 04/12/21 04/12/21 HYDROcodone/APAP 5-325MG [[place] 1 tab PO BID PRN 04/12/21 04/12/21 5-325] Ipratropium-Albuterol Nebulize 3 ml INHALATION RT-QID PRN 04/12/21 04/12/21 [Duoneb 0.5 mg-3 mg/3 ml Soln] Losartan Potassium [Cozaar] 50 mg PO DAILY 04/12/21 04/12/21 Metoprolol Tartrate [Lopressor] 50 mg PO DAILY 04/12/21 04/12/21 buPROPion SR [Wellbutrin SR] 150 mg PO BID 04/12/21 04/12/21 metFORMIN HCL [Glucophage] 1,000 mg PO BID 04/12/21 04/12/21 Previous Rx's Medication Instructions Recorded Albuterol Inhaler [Ventolin Hfa 2 puff INHALATION RT-QID PRN #1 08/13/20 Inhaler] inhaler Allergies Allergy/AdvReac Type Severity Reaction Status Date / Time acetaminophen [From Fioricet] Allergy Anaphylaxis Verified 04/12/21 17:19 butalbital [From Fioricet] Allergy Anaphylaxis Verified 04/12/21 17:19 caffeine [From Fioricet] Allergy Anaphylaxis Verified 04/12/21 17:19 Penicillins Allergy Rash/Hives Verified 04/12/21 17:19 venom-honey bee Allergy Anaphylaxis Verified 04/12/21 17:19 [bee venom (honey bee)] Review of Systems ROS Statement: Those systems with pertinent positive or pertinent negative responses have been documented in the HPI. ROS Other: All systems not noted in ROS Statement are negative. Past Medical History Past Medical History: COPD, Diabetes Mellitus, Deep Vein Thrombosis (DVT), Hypertension History of Any Multi-Drug Resistant Organisms: None Reported Past Surgical History: Hernia Repair, Orthopedic Surgery Additional Past Surgical History / Comment(s): recent removal of all upper teeth, olayinka toe amputation Past Psychological History: No Psychological Hx Reported Smoking Status: Current every day smoker Past Alcohol Use History: None Reported Past Drug Use History: Marijuana General Exam Limitations: no limitations General appearance: alert, in no apparent distress, other (This is a well- developed, well-nourished adult male patient in mild respiratory distress. Vital signs upon presentation are temperature 99.2F, pulse 88, respirations 24, blood pressure 166/92, pulse ox 98% on room air.) Eye exam: Present: normal appearance, PERRL, EOMI. Absent: scleral icterus, conjunctival injection, periorbital swelling ENT exam: Present: normal exam, normal oropharynx, mucous membranes moist Respiratory exam: Present: wheezes (Expiratory wheezing noted in the posterior lung garcía), accessory muscle use (Abdominal accessory muscle use), other (Tachypnea). Absent: normal lung sounds bilaterally, respiratory distress, rales, rhonchi, stridor Cardiovascular Exam: Present: regular rate, normal rhythm, normal heart sounds. Absent: systolic murmur, diastolic murmur, rubs, gallop, clicks GI/Abdominal exam: Present: soft, normal bowel sounds. Absent: distended, tenderness, guarding, rebound, rigid Neurological exam: Present: alert, oriented X3, CN II-XII intact Psychiatric exam: Present: normal affect, normal mood Skin exam: Present: warm, dry, intact, normal color. Absent: rash Course Vital Signs 04/12/21 04/12/21 04/12/21 14:08 15:30 15:52 Temperature 99.0 F Pulse Rate 88 76 80 Respiratory 24 22 20 Rate Blood Pressure 166/92 O2 Sat by Pulse 98 Oximetry 04/12/21 04/12/21 04/12/21 15:56 16:11 17:41 Temperature Pulse Rate 82 82 Respiratory 16 32 H 18 Rate Blood Pressure 157/71 140/84 O2 Sat by Pulse 97 98 Oximetry Medical Decision Making - Medical Decision Making 60 year-old male patient presents for evaluation of cough and shortness of breath x1 month. He has completed two courses of antibiotics. States symptoms are worsening. Physical examination did reveal coarse expiratory wheezing, accessory muscle use, and tachypnea. He was given 7.5mg albuterol treatment, IV solu-medrol, and pain medication. Upon re-evaluation he reports some improvement but still feels short of breath. He will be admitted to the hospital for continued treatments and steroids. We will consult pulmonology. He is agreeable with this plan. Case discussed with my attending Dr. Lawler. - Lab Data Result diagrams: 04/12/21 14:17 04/12/21 14:17 Lab Results 04/12/21 04/12/21 04/12/21 Range/Units 14:17 14:17 14:17 WBC 10.2 (3.8-10.6) k/uL RBC 4.26 L (4.30-5.90) m/uL Hgb 14.5 (13.0-17.5) gm/dL Hct 42.7 (39.0-53.0) % MCV 100.2 H (80.0-100.0) fL MCH 34.1 (25.0-35.0) pg MCHC 34.0 (31.0-37.0) g/dL RDW 13.6 (11.5-15.5) % Plt Count 290 (150-450) k/uL MPV 7.1 Neutrophils % 63 % Lymphocytes % 21 % Monocytes % 4 % Eosinophils % 9 % Basophils % 1 % Neutrophils # 6.5 (1.3-7.7) k/uL Lymphocytes # 2.2 (1.0-4.8) k/uL Monocytes # 0.4 (0-1.0) k/uL Eosinophils # 0.9 H (0-0.7) k/uL Basophils # 0.1 (0-0.2) k/uL Macrocytosis Slight PT 10.3 (9.0-12.0) sec INR 1.0 (<1.2) APTT 21.6 L (22.0-30.0) sec D-Dimer (<0.60) mg/L FEU Sodium 137 (137-145) mmol/L Potassium 4.4 (3.5-5.1) mmol/L Chloride 105 (98-107) mmol/L Carbon Dioxide 22 (22-30) mmol/L Anion Gap 10 mmol/L BUN 10 (9-20) mg/dL Creatinine 0.69 (0.66-1.25) mg/dL Est GFR (CKD-EPI)AfAm >90 (>60 ml/min/1.73 sqM) Est GFR (CKD-EPI)NonAf >90 (>60 ml/min/1.73 sqM) Glucose 236 H (74-99) mg/dL Lactic Ac Sepsis Rflx Plasma Lactic Acid Ajit (0.7-2.0) mmol/L Calcium 9.7 (8.4-10.2) mg/dL Total Bilirubin 0.5 (0.2-1.3) mg/dL AST 31 (17-59) U/L ALT 25 (4-49) U/L Alkaline Phosphatase 56 (38-126) U/L Troponin I (0.000-0.034) ng/mL Total Protein 6.5 (6.3-8.2) g/dL Albumin 4.1 (3.5-5.0) g/dL Coronavirus (PCR) (Not Detectd) 04/12/21 04/12/21 04/12/21 Range/Units 14:17 14:17 14:17 WBC (3.8-10.6) k/uL RBC (4.30-5.90) m/uL Hgb (13.0-17.5) gm/dL Hct (39.0-53.0) % MCV (80.0-100.0) fL MCH (25.0-35.0) pg MCHC (31.0-37.0) g/dL RDW (11.5-15.5) % Plt Count (150-450) k/uL MPV Neutrophils % % Lymphocytes % % Monocytes % % Eosinophils % % Basophils % % Neutrophils # (1.3-7.7) k/uL Lymphocytes # (1.0-4.8) k/uL Monocytes # (0-1.0) k/uL Eosinophils # (0-0.7) k/uL Basophils # (0-0.2) k/uL Macrocytosis PT (9.0-12.0) sec INR (<1.2) APTT (22.0-30.0) sec D-Dimer (<0.60) mg/L FEU Sodium (137-145) mmol/L Potassium (3.5-5.1) mmol/L Chloride (98-107) mmol/L Carbon Dioxide (22-30) mmol/L Anion Gap mmol/L BUN (9-20) mg/dL Creatinine (0.66-1.25) mg/dL Est GFR (CKD-EPI)AfAm (>60 ml/min/1.73 sqM) Est GFR (CKD-EPI)NonAf (>60 ml/min/1.73 sqM) Glucose (74-99) mg/dL Lactic Ac Sepsis Rflx Plasma Lactic Acid Ajit 2.6 H* (0.7-2.0) mmol/L Calcium (8.4-10.2) mg/dL Total Bilirubin (0.2-1.3) mg/dL AST (17-59) U/L ALT (4-49) U/L Alkaline Phosphatase (38-126) U/L Troponin I <0.012 (0.000-0.034) ng/mL Total Protein (6.3-8.2) g/dL Albumin (3.5-5.0) g/dL Coronavirus (PCR) Not Detected (Not Detectd) 04/12/21 04/12/21 Range/Units 14:17 15:18 WBC (3.8-10.6) k/uL RBC (4.30-5.90) m/uL Hgb (13.0-17.5) gm/dL Hct (39.0-53.0) % MCV (80.0-100.0) fL MCH (25.0-35.0) pg MCHC (31.0-37.0) g/dL RDW (11.5-15.5) % Plt Count (150-450) k/uL MPV Neutrophils % % Lymphocytes % % Monocytes % % Eosinophils % % Basophils % % Neutrophils # (1.3-7.7) k/uL Lymphocytes # (1.0-4.8) k/uL Monocytes # (0-1.0) k/uL Eosinophils # (0-0.7) k/uL Basophils # (0-0.2) k/uL Macrocytosis PT (9.0-12.0) sec INR (<1.2) APTT (22.0-30.0) sec D-Dimer 0.37 (<0.60) mg/L FEU Sodium (137-145) mmol/L Potassium (3.5-5.1) mmol/L Chloride (98-107) mmol/L Carbon Dioxide (22-30) mmol/L Anion Gap mmol/L BUN (9-20) mg/dL Creatinine (0.66-1.25) mg/dL Est GFR (CKD-EPI)AfAm (>60 ml/min/1.73 sqM) Est GFR (CKD-EPI)NonAf (>60 ml/min/1.73 sqM) Glucose (74-99) mg/dL Lactic Ac Sepsis Rflx Y Plasma Lactic Acid Ajit (0.7-2.0) mmol/L Calcium (8.4-10.2) mg/dL Total Bilirubin (0.2-1.3) mg/dL AST (17-59) U/L ALT (4-49) U/L Alkaline Phosphatase (38-126) U/L Troponin I (0.000-0.034) ng/mL Total Protein (6.3-8.2) g/dL Albumin (3.5-5.0) g/dL Coronavirus (PCR) (Not Detectd) - EKG Data -: EKG Interpreted by Me EKG Comments: EKG obtained at 1404 shows normal sinus rhythm with an incomplete right bundle branch block. Ventricular rate is 73, WA interval 148, QRS duration 118, QTC 426, QTc 469. No evidence of ST elevation or depression. - Radiology Data Radiology results: report reviewed, image reviewed Two-view x-ray of the chest is obtained. Report is reviewed in its entirety. Impression by Dr. Mahmood shows interstitial prominence could represent bronchitis or asthma. Correlate to exclude early atypical pneumonia. No focal infiltrate. Disposition Clinical Impression: COPD exacerbation Disposition: ADMITTED IP TO THIS [facility] Condition: Serious Decision to Admit Reason: Admit from EC Decision Date: 04/12/21 Decision Time: 17:17
[2021-04-12] MEDS: methylPREDNISolone SOD SUCCI 125 MG/2 ML VIAL IV SCH ×2 (17:40→23:57)
[2021-04-12] MEDS ORDERED: AZITHROMYCIN 500 MG in SODIUM CHLORIDE 0.9% 250 ML IVPB STA (18:15)
[2021-04-12] MEDS ORDERED: FUROSEMIDE 10 MG/ML 4 ML VIAL IV STA (18:49)
[2021-04-12] MEDS ORDERED: TEMAZEPAM 15 MG CAP PO PRN (19:24)
[2021-04-12] MEDS ORDERED: ALPRAZolam 0.25 MG TAB PO PRN (19:24)
[2021-04-12] MEDS ORDERED: HYDROcodone/APAP 5-325MG 1 EACH TAB PO PRN (19:25)
--- NOTE | 2021-04-12 20:28 | HP ---
HISTORY AND PHYSICAL DATE OF SERVICE: 04/12/2021 CHIEF COMPLAINT: Shortness of breath. HISTORY OF PRESENT ILLNESS: This 60-year-old gentleman with a past medical history of multiple medical problems, including COPD, diabetes mellitus, history of DVT, history of hypertension, history of DJD, being followed by Dr. Evelyn Cash in the outpatient setting, was complaining of increasing shortness of breath. The patient was having cough and sputum for the last one month. The patient has been to [facility] twice at least, and because of increased came to [facility]. The patient was found to have lactic acid up to 2.6. Covid-19 was negative. The patient was admitted for further evaluation and treatment. A chest x-ray, which was reviewed personally by me, showed evidence of some increased vascular markings; no evidence of any significant pneumonia. There is no history of any fever, rigors or chills at this time. The patient also had bilateral leg swelling. PAST MEDICAL HISTORY: History of of COPD, history of diabetes mellitus, history of DVT, hypertension. MEDICATIONS: Home medications are Tylenol, Glucophage, vitamin D2, Cozaar, DuoNeb, [place], Eliquis, Wellbutrin SR, lopressor, Lopid, Ventolin. ALLERGIES: TYLENOL, FIORICET, PENICILLIN AND HONEY BEE VENOM. SOCIAL HISTORY: History of smoking. Occasional THC. REVIEW OF SYSTEMS: ENT: No diminished hearing. No diminished vision. CARDIOVASCULAR SYSTEM: No angina, palpitations. RESPIRATORY SYSTEM: As mentioned earlier. GI: As mentioned earlier : No dysuria. NERVOUS SYSTEM: No numbness, weakness. ALLERGY/IMMUNOLOGY: No asthma or hay fever. MUSCULOSKELETAL: As mentioned earlier. HEMATOLOGY/ONCOLOGY: No history of anemia. ENDOCRINE: As mentioned earlier. CONSTITUTIONAL: As mentioned earlier. DERMATOLOGY: Negative. RHEUMATOLOGY: Negative. PSYCHIATRY: As mentioned earlier. PHYSICAL EXAMINATION: Patient alert and oriented x3. Pulse is 82, blood pressure 140/84, respiration 18, temperature normal, pulse ox 98% on 2 L. HEENT: Conjunctivae normal. NECK: No jugular venous distention. CARDIOVASCULAR: S1, S2 muffled. RESPIRATION: Breath sounds diminished at the bases. A few scattered rhonchi and crackles. ABDOMEN: Soft, nontender. No mass palpable. LEGS: No edema. No swelling. NERVOUS SYSTEM: Higher functions as mentioned earlier. Moves all 4 limbs. No focal motor or sensory deficit. LYMPHATICS: No lymph node palpable in neck, axillae or groin. SKIN: No ulcer, rash, bleeding. JOINTS: No active deforming arthropathy. LABS: WBC 10.2, hemoglobin 14.5, MCV 100.2, and lactic acid 2.6. ASSESSMENT: 1. Chronic obstructive pulmonary disease, acute exacerbation, with acute purulent tracheobronchitis with failure of outpatient treatment with possible sepsis, present on admission. 2. Elevated lactic acid. 3. Elevated random glucose. 4. Increased mean corpuscular volume. 5. Chronic obstructive pulmonary disease history. 6. Diabetes mellitus, type 2 history. 7. History of deep vein thrombosis. 8. Hypertension. 9. History of degenerative joint disease. 10.History of nicotine dependence. 11.History of THC. 12.Obesity with body mass index of 41.1. 13.Bilateral leg edema for evaluation. RECOMMENDATIONS AND DISCUSSION: In this 60-year-old gentleman who presented with multiple medical issues, we will monitor the patient closely, continue the current medications, continue symptomatic treatment. I would recommend intensive bronchodilators, antibiotics. Pulmonary consultation. I would also evaluate the patient for the possibility of cor pulmonale. Empiric antibiotics will be initiated. One dose of Lasix was given, which will be repeated on a daily basis. Prognosis extremely guarded. Renal function will be closely monitored. A copy of this dictation is being forwarded to Dr. Evelyn Cash, who is the primary physician. A 2D echo with Doppler also will be ordered. MMODL / IJN: [id number] /
[2021-04-12 21:12] LABS: Glucose,Whole Blood 434 mg/dL (75-99)
[2021-04-12] MEDS: FORMOTEROL FUMARATE 20 MCG/2 ML NEBU INHALATION SCH (21:31)
[2021-04-12] MEDS: IPRATROPIUM-ALBUTEROL 3 ML NEB INHALATION SCH (21:32)
[2021-04-12] MEDS: BUDESONIDE 1 MG/2 ML NEBU INHALATION SCH (21:32)
[2021-04-12] MEDS: APIXABAN 2.5 MG TABLET PO SCH (21:40)
[2021-04-12] MEDS: metFORMIN 500 MG TAB PO SCH (21:40)
[2021-04-12] MEDS: buPROPion SR 150 MG TABLET.ER PO SCH (21:40)
[2021-04-12] MEDS: guaiFENesin 600 MG TABLET.ER PO SCH (21:40)
[2021-04-12] MEDS: GABAPENTIN 300 MG CAP PO SCH (21:40)
[2021-04-12] MEDS: ATORVASTATIN 80 MG TAB PO SCH (21:40)
[2021-04-12] MEDS: INSULIN ASPART (NovoLOG) 100 UNIT/ML VIAL SQ SCH (21:41)
[2021-04-12] MEDS: NICOTINE 14MG/24HR PATCH TRANSDERM SCH (21:43)
[2021-04-12 22:32] LABS: Glucose,Whole Blood 453 mg/dL (75-99)
[2021-04-12] MEDS ORDERED: INSULIN ASPART (NovoLOG) 100 UNIT/ML VIAL SQ ONE (22:50)
[2021-04-12] MEDS ORDERED: INSULIN DETEMIR (LEVEMIR) 100 UNIT/ML SYR SQ SCH (23:00)
[2021-04-12] MEDS: HYDROmorphone 1 MG/ML 1 ML SYRINGE IVP PRN (23:58)
[2021-04-13] MEDS: IPRATROPIUM-ALBUTEROL 3 ML NEB INHALATION PRN (02:46)
[2021-04-13] MEDS: HYDROmorphone 1 MG/ML 1 ML SYRINGE IVP PRN ×4 (04:13→22:27)
[2021-04-13] MEDS: methylPREDNISolone SOD SUCCI 125 MG/2 ML VIAL IV SCH ×3 (05:15→18:36)
[2021-04-13 07:02] LABS: ALT 28 U/L (4-49); AST 31 U/L (17-59); African American GFR (CKD) >90 (>60 ml/min/1.73 sqM); Albumin 4.2 g/dL (3.5-5.0); Albumin/Globulin Ratio 1.8; Alkaline Phosphatase 54 U/L (38-126); Anion Gap 12 mmol/L; Blood Urea Nitrogen 22 mg/dL (9-20); Calcium 9.5 mg/dL (8.4-10.2); Carbon Dioxide 21 mmol/L (22-30); Chloride 100 mmol/L (98-107); Globulin 2.4 g/dL; Glucose 357 mg/dL (74-99); Non-African American GFR(CKD) >90 (>60 ml/min/1.73 sqM); Sodium 133 mmol/L (137-145); Total Bilirubin 0.4 mg/dL (0.2-1.3); Total Protein 6.6 g/dL (6.3-8.2)
[2021-04-13] MEDS: BUDESONIDE 1 MG/2 ML NEBU INHALATION SCH ×2 (07:18→20:00)
[2021-04-13] MEDS: FORMOTEROL FUMARATE 20 MCG/2 ML NEBU INHALATION SCH ×2 (07:18→20:00)
[2021-04-13] MEDS: IPRATROPIUM-ALBUTEROL 3 ML NEB INHALATION SCH ×4 (07:19→20:00)
[2021-04-13 07:37] LABS: Glucose,Whole Blood 350 mg/dL (75-99)
[2021-04-13] MEDS: NICOTINE 14MG/24HR PATCH TRANSDERM SCH (08:45)
[2021-04-13] MEDS: FUROSEMIDE 10 MG/ML 4 ML VIAL IV SCH (08:46)
[2021-04-13] MEDS: APIXABAN 2.5 MG TABLET PO SCH ×2 (08:46→21:14)
[2021-04-13] MEDS: PANTOPRAZOLE 40 MG TABLET PO SCH (08:46)
[2021-04-13] MEDS: guaiFENesin 600 MG TABLET.ER PO SCH ×2 (08:47→21:14)
[2021-04-13] MEDS: metFORMIN 500 MG TAB PO SCH ×2 (08:47→21:15)
[2021-04-13] MEDS: GABAPENTIN 300 MG CAP PO SCH ×3 (08:47→21:15)
[2021-04-13] MEDS: METOPROLOL TARTRATE 50 MG TAB PO SCH (08:47)
[2021-04-13] MEDS: LOSARTAN 50 MG TAB PO SCH (08:47)
[2021-04-13 08:51] LABS: Basophils # (A) 0.01 X 10*3/uL (0.00-0.10); Basophils % (A) 0.1 %; Eosinophils # (A) 0 X 10*3/uL (0.04-0.35); Eosinophils % (A) 0 %; HCT 42.8 % (39.6-50.0); Lymphocytes # (A) 1.06 X 10*3/uL (0.90-5.00); Lymphocytes % (A) 9.3 %; MCH 33.1 pg (27.0-32.0); MCHC 32.7 g/dL (32.0-37.0); MCV 101.2 fL (80.0-97.0); Mean Platelet Volume 9.5 fL (9.5-12.2); Monocytes # (A) 0.11 X 10*3/uL (0.20-1.00); Neutrophils # (A) 10.14 X 10*3/uL (1.80-7.70); Neutrophils % (A) 89.2 %; Platelet Count 293 X 10*3/uL (140-440); RBC 4.23 X 10*6/uL (4.40-5.60); RDW 12.9 % (11.5-14.5); WBC 11.36 X 10*3/uL (4.50-10.00)
[2021-04-13] MEDS: INSULIN ASPART (NovoLOG) 100 UNIT/ML VIAL SQ SCH ×4 (09:01→18:36)
[2021-04-13] MEDS: buPROPion SR 150 MG TABLET.ER PO SCH ×2 (09:01→21:15)
[2021-04-13 09:32] LABS: African American GFR (CKD) 95.7 (60.0-200.0); Anion Gap 13.8 mmol/L (4.00-12.00); Calcium 9.7 mg/dL (8.7-10.3); Carbon Dioxide 22.2 mmol/L (21.6-31.8); Non-African American GFR(CKD) 82.6 (60.0-200.0); Potassium 4.4 mmol/L (3.5-5.5)
[2021-04-13] MEDS: AZITHROMYCIN 500 MG in SODIUM CHLORIDE 0.9% 250 ML IVPB SCH (11:08)
--- NOTE | 2021-04-13 11:56 | P.CNPUL ---
History of Present Illness Consult date: 04/13/21 History of present illness: Plan patient, known history of COPD, coming in with worsening shortness of breath. He tells that his breathing has been poor since he got COVID 19 in spring. Nevertheless, over the infection, he was not hospitalized and he was essentially treated at home. He is a chronic smoker and smokes about half pack of cigarettes a day. Prior to that used to smoke more. Has a nebulizer at home he does DuoNeb nebulized treatments around the clock has been doing his nebulized treatments more frequently without any significant help. He has increased dyspnea, cough, chest tightness, wheezing. He is known to have diabetes mellitus. He has neuropathy and peripheral vascular disease. He has claudication and previous amputation his lower extremity and he has been maintained on lifelong anticoagulation with Eliquis knowing that he has had previous history of DVTs of the left lower extremity. No previous history of pulmonary embolism. No coronary artery disease. No angina. No C of CHF and his last echocardiogram from 2017 was essentially within normal limits. No pleurisy. No hemoptysis. He is currently on oxygen at 2 L per minute nasal cannula. He is diabetic and other comorbidities include hypertension and hyperlipidemia. Stroke. No history of any congestion heart failure. The first hospitalization for any COPD related complications. He was in the emergency department back in the July 2020 where he had COPD exacerbation he was given a round of steroids and he was discharged home. Review of Systems Constitutional: Reports chills, Reports fatigue, Reports night sweats, Reports weight gain Eyes: denies as per HPI, denies blurred vision, denies bulging eye, denies decreased vision, denies diplopia, denies discharge, denies dry eye, denies irritation, denies itching, denies pain, denies photophobia, denies loss of peripheral vision, denies loss of vision, denies tunnel vision/blind spots Ears, nose, mouth and throat: Reports as per HPI Cardiovascular: Reports claudication, Reports decreased exercise tolerance, Reports dyspnea on exertion, Reports leg edema, Reports shortness of breath Respiratory: Reports cough, Reports dyspnea Gastrointestinal: Reports as per HPI Genitourinary: Reports as per HPI Musculoskeletal: Reports low back pain, Reports prior amputations Musculoskeletal: bilateral: ankle swelling, absent: ankle pain, ankle stiffness Integumentary: Reports as per HPI Neurological: Reports paresthesias, Reports weakness Psychiatric: Reports as per HPI Endocrine: Reports as per HPI Hematologic/Lymphatic: Reports as per HPI Allergic/Immunologic: Reports as per HPI Past Medical History Past Medical History: COPD, Diabetes Mellitus, Deep Vein Thrombosis (DVT) (left lower extremity), Hyperlipidemia, Hypertension Additional Past Medical History / Comment(s): Obesity, PVD, COPD, HTN, DM type 2, Depression, obesity, hyperlipidemia History of Any Multi-Drug Resistant Organisms: None Reported Past Surgical History: Hernia Repair, Orthopedic Surgery Additional Past Surgical History / Comment(s): recent removal of all upper teeth, olayinka toe amputation Past Psychological History: No Psychological Hx Reported Smoking Status: Current every day smoker Past Alcohol Use History: None Reported Past Drug Use History: Marijuana Medications and Allergies Home Medications Medication Instructions Recorded Confirmed Type Albuterol Inhaler [Ventolin Hfa 2 puff INHALATION RT-QID PRN #1 08/13/20 04/12/21 Rx Inhaler] inhaler Acetaminophen Tab [Tylenol Tab] 500 mg PO Q6H PRN 04/12/21 04/12/21 History Apixaban [Eliquis] 2.5 mg PO BID 04/12/21 04/12/21 History Atorvastatin Calcium [Lipitor] 80 mg PO HS 04/12/21 04/12/21 History Ergocalciferol (Vitamin D2) 1,250 mcg PO MO 04/12/21 04/12/21 History [Drisdol (50,000 Iu)] Gabapentin 600 mg PO TID 04/12/21 04/12/21 History HYDROcodone/APAP 5-325MG [[place] 1 tab PO BID PRN 04/12/21 04/12/21 History 5-325] Ipratropium-Albuterol Nebulize 3 ml INHALATION RT-QID PRN 04/12/21 04/12/21 History [Duoneb 0.5 mg-3 mg/3 ml Soln] Losartan Potassium [Cozaar] 50 mg PO DAILY 04/12/21 04/12/21 History Metoprolol Tartrate [Lopressor] 50 mg PO DAILY 04/12/21 04/12/21 History buPROPion SR [Wellbutrin SR] 150 mg PO BID 04/12/21 04/12/21 History metFORMIN HCL [Glucophage] 1,000 mg PO BID 04/12/21 04/12/21 History Allergies Allergy/AdvReac Type Severity Reaction Status Date / Time acetaminophen [From Fioricet] Allergy Anaphylaxis Verified 04/12/21 17:19 butalbital [From Fioricet] Allergy Anaphylaxis Verified 04/12/21 17:19 caffeine [From Fioricet] Allergy Anaphylaxis Verified 04/12/21 17:19 Penicillins Allergy Rash/Hives Verified 04/12/21 17:19 venom-honey bee Allergy Anaphylaxis Verified 04/12/21 17:19 [bee venom (honey bee)] Physical Exam Vitals: Vital Signs Temp Pulse Pulse Resp BP BP Pulse Ox 04/13/21 11:23 92 04/13/21 11:11 96 04/13/21 07:48 108 H 04/13/21 07:34 108 H 04/13/21 07:33 108 H 04/13/21 07:30 97.8 F 95 18 140/76 99 04/13/21 07:19 112 H 04/13/21 02:56 96 04/13/21 02:46 92 04/13/21 01:17 97.6 F 96 32 H 142/75 97 04/12/21 21:52 90 04/12/21 21:42 92 04/12/21 21:41 92 04/12/21 21:32 95 04/12/21 20:40 97.9 F 90 22 138/82 97 04/12/21 19:51 90 18 114/62 96 04/12/21 17:41 82 18 140/84 98 04/12/21 16:11 32 H 04/12/21 15:56 82 16 157/71 97 04/12/21 15:52 80 20 04/12/21 15:30 76 22 04/12/21 14:08 99.0 F 88 24 166/92 98 Intake and Output 04/12/21 04/13/21 04/13/21 22:59 06:59 14:59 Output Total 300 800 Balance -300 -800 Output: Urine 300 800 Other: Voiding Method Toilet Toilet Urinal Urinal # Voids 1 Weight 122.47 kg Gen. appearance, comfortable no acute distress Head exam was generally normal. There was no scleral icterus or corneal arcus. Mucous membranes were moist. Neck was supple and without jugular venous distension, thyromegaly, or carotid bruits. Carotids were easily palpable bilaterally. There was no adenopathy. Lungs sounds are diminished bilaterally and the patient has diffuse expiratory wheezes throughout the lung garcía Cardiac exam revealed the PMI to be normally situated and sized. The rhythm was regular and no extrasystoles were noted during several minutes of auscultation. The first and second heart sounds were normal and physiologic splitting of the second heart sound was noted. There were no murmurs, rubs, clicks, or gallops. Abdominal exam revealed normal bowel sounds. The abdomen was soft, non-tender, and without masses, organomegaly, or appreciable enlargement of the abdominal aorta. Extremities revealed trace edema and there is no cyanosis or clubbing. His diminished pulses Neurologically, the patient is awake and alert and the patient does not have any focal neurological deficit. Cranial nerves are essentially intact. Results - Laboratory Findings CBC and BMP: 04/13/21 02:16 04/13/21 06:35 PT/INR, D-dimer PT 10.3 sec (9.0-12.0) 04/12/21 14:17 INR 1.0 (<1.2) 04/12/21 14:17 D-Dimer 0.37 mg/L FEU (<0.60) 04/12/21 14:17 Abnormal lab findings: Abnormal Labs 04/12/21 04/12/21 04/12/21 14:17 14:17 14:17 WBC RBC 4.26 L MCV 100.2 H MCH Neutrophils # Monocytes # Eosinophils # 0.9 H APTT 21.6 L Sodium Carbon Dioxide Anion Gap BUN Glucose 236 H POC Glucose (mg/dL) Plasma Lactic Acid Ajit 04/12/21 04/12/21 04/12/21 14:17 18:20 20:50 WBC RBC MCV MCH Neutrophils # Monocytes # Eosinophils # APTT Sodium Carbon Dioxide Anion Gap BUN Glucose POC Glucose (mg/dL) 434 H Plasma Lactic Acid Ajit 2.6 H* 3.3 H* 04/12/21 04/12/21 04/13/21 22:20 22:34 02:16 WBC 11.36 H RBC 4.23 L MCV 101.2 H MCH 33.1 H Neutrophils # 10.14 H Monocytes # 0.11 L Eosinophils # 0 L APTT Sodium Carbon Dioxide Anion Gap BUN Glucose POC Glucose (mg/dL) 453 H Plasma Lactic Acid Ajit 3.8 H* 04/13/21 04/13/21 04/13/21 02:16 02:16 06:35 WBC RBC MCV MCH Neutrophils # Monocytes # Eosinophils # APTT Sodium 133 L Carbon Dioxide 21 L Anion Gap 13.80 H BUN 22 H Glucose 267 H 357 H POC Glucose (mg/dL) Plasma Lactic Acid Ajit 4.0 H* 04/13/21 04/13/21 04/13/21 06:35 07:29 09:57 WBC RBC MCV MCH Neutrophils # Monocytes # Eosinophils # APTT Sodium Carbon Dioxide Anion Gap BUN Glucose POC Glucose (mg/dL) 350 H Plasma Lactic Acid Ajit 3.1 H* 2.8 H* - Diagnostic Findings Chest x-ray: image reviewed Assessment and Plan Plan: 1 acute COPD exacerbation with secondary shortness of breath. 2 acute hypoxic respiratory failure currently on oxygen 2 L per minute nasal cannula, secondary to COPD exacerbation. 3 known history of COPD with previous history of smoking 4 diabetes mellitus type 2 5 peripheral vascular disease 6 peripheral neuropathy 7 hypertension 8 hyperlipidemia 9 previous history of DVT of the left lower extremity and the patient has been maintained on long-term anticoagulation with Eliquis Plan Agree on the current treatment of bronchodilators and steroids and antibiotics. Monitor blood sugar and use sliding scale insulin coverage in addition to long- acting insulin. Patient counseling. Outpatient follow-up regarding COPD. We'll follow.
[2021-04-13 12:07] LABS: Glucose,Whole Blood 377 mg/dL (75-99)
[2021-04-13] MEDS ORDERED: INSULIN ASPART (NovoLOG) 100 UNIT/ML VIAL SQ ONE (12:25)
--- NOTE | 2021-04-13 12:50 | PN ---
PROGRESS NOTE DATE OF SERVICE: 04/13/2021 This 60-year-old gentleman who was admitted with COPD, acute exacerbation, is extremely short of breath today. The patient is on bronchodilators, steroids and IV antibiotics. The patient is slightly anxious, also. Dr. Perry is following the patient closely. Chest x-ray showed no evidence of significant pneumonia. Past medical history reviewed. REVIEW OF SYSTEMS: CARDIOVASCULAR: No angina, palpitations. RESPIRATORY SYSTEM: As mentioned earlier. GI: As mentioned earlier. : No dysuria. NERVOUS SYSTEM: No numbness, weakness. CURRENT MEDICATIONS: Current medications are reviewed and include [place], DuoNeb, Xanax, Eliquis, Lipitor, Zithromax, Wellbutrin. Doses are reviewed. PHYSICAL EXAMINATION: Patient alert and oriented x3. Pulse is 108, blood pressure is 147/86, respiration 18, temperature 97.8, pulse ox 99% on room air. HEENT: Conjunctivae normal. NECK: No jugular venous distention. CARDIOVASCULAR: S1, S2 muffled. RESPIRATION: Breath sounds diminished at the bases. Scattered rhonchi and crackles. Expiratory wheezing. ABDOMEN: Soft, nontender. NERVOUS SYSTEM: No focal deficit. LABS: Sodium 133, potassium 5. Glucose 377. ASSESSMENT: 1. Chronic obstructive pulmonary disease, acute exacerbation, with acute purulent tracheobronchitis with failure of outpatient treatment with possible sepsis, present on admission. 2. Elevated lactic acid. 3. Severe anxiety. 4. Diffuse tremors. 5. Diabetes mellitus, type 2, with uncontrolled hyperglycemia. 6. Increased mean corpuscular volume. 7. History of chronic obstructive pulmonary disease. 8. History of deep vein thrombosis. 9. Hypertension. 10.History of degenerative joint disease. 11.History of nicotine dependence. 12.History of THC. 13.Obesity with body mass index of 41.1. 14.Bilateral leg edema for evaluation. RECOMMENDATIONS AND DISCUSSION: I recommend to continue current medications, continue with symptomatic treatment. Continue with the bronchodilators. Continue with empiric antibiotics and steroids. I will recommend 20 units of regular insulin. If the blood sugar is still elevated more than 350, I would recommend insulin drip. Plasma lactic acid is still elevated. Infectious disease consultation has been sought. MMODL / IJN: [id number] /
[2021-04-13 14:29] LABS: Hemoglobin A1C 8.4 % (4.0-6.0)
[2021-04-13 14:46] LABS: Glucose,Whole Blood 317 mg/dL (75-99)
--- NOTE | 2021-04-13 16:41 | ECHOF ---
Referral Reason:chf MEASUREMENTS -------- HEIGHT: 172.7 cm WEIGHT: 122.5 kg BP: 142/75 IVSd: 0.8 cm (0.6 - 1.1) LVIDd: 4.7 cm (3.9 - 5.3) LVPWd: 1.3 cm (0.6 - 1.1) EDV(Teich): 101 ml IVSs: 1.2 cm LVIDs: 2.9 cm LVPWs: 1.4 cm %IVS Thck: 50 % ESV(Teich): 31 ml EF(Teich): 69 % %FS: 39 % SV(Teich): 69 ml RVIDd: 3.9 cm (< 3.3) Ao Diam: 3.0 cm (2.0 - 3.7) LA Diam: 2.9 cm (2.7 - 3.8) EPSS: 0.6 cm MV E Chon: 1.05 m/s MV DecT: 216 ms MV Dec [place]: 4.8 m/s MV A Chon: 1.01 m/s MV E/A Ratio: 1.03 MV PHT: 63 ms MR Vmax: 1.05 m/s MR maxP.42 mmHg TR Vmax: 1.40 m/s TR maxP.89 mmHg RAP: 5.00 mmHg RVSP: 12.89 mmHg MV EF SLOPE: 70.18 mm/s (70 - 150) MV EXCURSION: 14.06 mm (> 18.000) FINDINGS -------- This was a technically difficult study with suboptimal views. The left ventricular size is normal. There is mild concentric left ventricular hypertrophy. Overa ll left ventricular systolic function is normal with, an EF between 55 - 60 %. The right ventricle is moderately enlarged. The left atrial size is normal. The right atrial size is normal. 5.0mg of Lumason was utilized for enhancement of images The aortic valve is trileaflet and appears structurally normal. The mitral valve is normal. There is trace mitral regurgitation. The tricuspid valve appears structurally normal. Mild tricuspid regurgitation present. Right vent ricular systolic pressure is normal at < 35 mmHg. There is no pulmonic regurgitation present. The aortic root size is normal. IVC Not well visulized. There is no pericardial effusion. CONCLUSIONS -------- 1. The left ventricular size is normal. 2. There is mild concentric left ventricular hypertrophy. 3. Overall left ventricular systolic function is normal with, an EF between 55 - 60 %. 4. The right ventricle is moderately enlarged. 5. There is trace mitral regurgitation. 6. Mild tricuspid regurgitation present. 7. There is no pericardial effusion. BOXING INSTRUCTOR: Aviva Peacock RDCS
[2021-04-13 17:13] LABS: Glucose,Whole Blood 252 mg/dL (75-99)
[2021-04-13] MEDS: INSULIN REGULAR 100 UNIT in SODIUM CHLORIDE 0.9% 100 ML IV SCH (17:17)
[2021-04-13 17:54] LABS: Glucose,Whole Blood 294 mg/dL (75-99)
[2021-04-13 18:32] LABS: Glucose,Whole Blood 316 mg/dL (75-99)
[2021-04-13 20:04] LABS: Glucose,Whole Blood 304 mg/dL (75-99)
[2021-04-13 20:42] LABS: Glucose,Whole Blood 237 mg/dL (75-99)
[2021-04-13] MEDS: ATORVASTATIN 80 MG TAB PO SCH (21:15)
--- NOTE | 2021-04-13 22:09 | P.CONS ---
History of Present Illness - Reason for Consult Consult date: 04/13/21 sepsis Requesting physician: Rosalee Puri - Chief Complaint shortness of breath x weeks - History of Present Illness History of present illness : Patient is a 60-year-old male with a past medical history significant for COPD presenting to the ER for evaluation of increasing shortness of breath and this patient symptom has been getting worse for the last few weeks patient has been evaluated in the urgent care center and has been treated with multiple courses of antibiotic without any improvement patient has been complaining of increasing shortness of breath he also have a cough which is moderate intensity and productive of greenish sputum no hemoptysis did have lower rib cage chest pain from coughing intensity 4-5 out of 10 and no radiation did have some chills but denies high-grade fever with the symptoms the patient was evaluated by ER physician on arrival to the ER the patient was afebrile he did have some tachycardia initial value was normal repe at is 11.36 D-dimer was negative did have elevated lactic acid creatinine was normal her liver enzymes are normal henderson PCR was negative patient did have a chest x-ray interstitial prominence could represent bronchitis or asthma correlate to exclude early atypical pneumonia patient was started on steroid Rocephin and Zithromax infectious disease was consulted with concern for sepsis and pneumonia Review of system: CONSTITUTIONAL: Positive for weakness did have some chills but denies fever. EYES: No complaint. ENT: No complaint. RESPIRATORY: As per history of present illness. CARDIOVASCULAR: No complaint. GENITOURINARY: No complaint. GASTROINTESTINAL: No complaint. MUSCULOSKELETAL: No complaint. INTEGUMENTARY: No complaint. PSYCHOLOGIC: No complaint. ENDOCRINE: No complaint. NEUROLOGIC: No complaint. Past medical history : Reviewed, documented below Past surgical history : Reviewed, documented below Social history: Reviewed, documented below Medications: Reviewed, as documented below GENERAL DESCRIPTION: Middle-aged male lying in bed, no distress. No tachypnea or accessory muscle of respiration use. HEENT: Shows Pallor , no scleral icterus. Oral mucous membrane is dry. NECK: Trachea central, no thyromegaly. LUNGS: Unlabored breathing. Coarse breath sounds bilaterally with occasional wheeze no crackles. HEART: S1, S2, regular rate and rhythm. ABDOMEN: Soft, no tenderness , guarding or rigidity EXTREMITIES: No edema of feet. SKIN: No rash, no masses palpable. NEUROLOGICAL: The patient is awake, alert, oriented x3, mood and affect normal. LABS AND RADIOLOGY: Reviewed results see below Assessment : Patient presented to hospital with increasing shortness of breath productive cough in this patient with underlying COPD likely representing COPD exacerbation with tracheobronchitis underlying pneumonia less likely but not entirely excluded, patient did have elevated lactic acid more likely secondary to underlying COPD exacerbation rather than secondary to sepsis in this patient currently does not look toxic no fever or elevated white count Plan: 1-we will obtain a sputum for Gram stain and culture 2-check a CRP and procalcitonin level 3-Rocephin and Zithromax to continue along with steroids and bronchodilator We will follow on clinical condition and cultures to further adjust medication if needed Thank you for this consultation we will follow the patient along with you Past Medical History Past Medical History: COPD, Diabetes Mellitus, Deep Vein Thrombosis (DVT) (left lower extremity), Hyperlipidemia, Hypertension Additional Past Medical History / Comment(s): Obesity, PVD, COPD, HTN, DM type 2, Depression, obesity, hyperlipidemia History of Any Multi-Drug Resistant Organisms: None Reported Past Surgical History: Hernia Repair, Orthopedic Surgery Additional Past Surgical History / Comment(s): recent removal of all upper teeth, olaynika toe amputation Past Psychological History: No Psychological Hx Reported Smoking Status: Current every day smoker Past Alcohol Use History: None Reported Past Drug Use History: Marijuana Medications and Allergies Home Medications Medication Instructions Recorded Confirmed Type Albuterol Inhaler [Ventolin Hfa 2 puff INHALATION RT-QID PRN #1 08/13/20 04/12/21 Rx Inhaler] inhaler Acetaminophen Tab [Tylenol Tab] 500 mg PO Q6H PRN 04/12/21 04/12/21 History Apixaban [Eliquis] 2.5 mg PO BID 04/12/21 04/12/21 History Atorvastatin Calcium [Lipitor] 80 mg PO HS 04/12/21 04/12/21 History Ergocalciferol (Vitamin D2) 1,250 mcg PO MO 04/12/21 04/12/21 History [Drisdol (50,000 Iu)] Gabapentin 600 mg PO TID 04/12/21 04/12/21 History HYDROcodone/APAP 5-325MG [[place] 1 tab PO BID PRN 04/12/21 04/12/21 History 5-325] Ipratropium-Albuterol Nebulize 3 ml INHALATION RT-QID PRN 04/12/21 04/12/21 His tory [Duoneb 0.5 mg-3 mg/3 ml Soln] Losartan Potassium [Cozaar] 50 mg PO DAILY 04/12/21 04/12/21 History Metoprolol Tartrate [Lopressor] 50 mg PO DAILY 04/12/21 04/12/21 History buPROPion SR [Wellbutrin SR] 150 mg PO BID 04/12/21 04/12/21 History metFORMIN HCL [Glucophage] 1,000 mg PO BID 04/12/21 04/12/21 History Allergies Allergy/AdvReac Type Severity Reaction Status Date / Time acetaminophen [From Fioricet] Allergy Anaphylaxis Verified 04/12/21 17:19 butalbital [From Fioricet] Allergy Anaphylaxis Verified 04/12/21 17:19 caffeine [From Fioricet] Allergy Anaphylaxis Verified 04/12/21 17:19 Penicillins Allergy Rash/Hives Verified 04/12/21 17:19 venom-honey bee Allergy Anaphylaxis Verified 04/12/21 17:19 [bee venom (honey bee)] Physical Exam Vitals: Vital Signs Temp Pulse Pulse Resp BP BP Pulse Ox 04/13/21 11:23 92 04/13/21 11:11 96 04/13/21 07:48 108 H 04/13/21 07:34 108 H 04/13/21 07:33 108 H 04/13/21 07:30 97.8 F 95 18 140/76 99 04/13/21 07:19 112 H 04/13/21 02:56 96 04/13/21 02:46 92 04/13/21 01:17 97.6 F 96 32 H 142/75 97 04/12/21 21:52 90 04/12/21 21:42 92 04/12/21 21:41 92 04/12/21 21:32 95 04/12/21 20:40 97.9 F 90 22 138/82 97 04/12/21 19:51 90 18 114/62 96 04/12/21 17:41 82 18 140/84 98 04/12/21 16:11 32 H 04/12/21 15:56 82 16 157/71 97 04/12/21 15:52 80 20 04/12/21 15:30 76 22 08/20/21 14:08 99.0 F 88 24 166/92 98 Intake and Output 04/12/21 04/13/21 04/13/21 22:59 06:59 14:59 Output Total 300 800 Balance -300 -800 Output: Urine 300 800 Other: Voiding Method Toilet Toilet Urinal Urinal # Voids 1 Weight 122.47 kg Results CBC & Chem 7: 04/13/21 02:16 04/13/21 06:35 Labs: Abnormal Lab Results - Last 24 Hours (Table) 04/12/21 04/12/21 04/12/21 Range/Units 14:17 14:17 14:17 WBC (4.50-10.00) X 10*3/uL RBC 4.26 L (4.30-5.90) m/uL MCV 100.2 H (80.0-100.0) fL MCH (27.0-32.0) pg Neutrophils # (1.80-7.70) X 10*3/uL Monocytes # (0.20-1.00) X 10*3/uL Eosinophils # 0.9 H (0-0.7) k/uL APTT 21.6 L (22.0-30.0) sec Sodium (137-145) mmol/L Carbon Dioxide (22-30) mmol/L Anion Gap (4.00-12.00) mmol/L BUN (9-20) mg/dL Glucose 236 H (74-99) mg/dL POC Glucose (mg/dL) (75-99) mg/dL Plasma Lactic Acid Ajit (0.7-2.0) mmol/L 04/12/21 04/12/21 04/12/21 Range/Units 14:17 18:20 20:50 WBC (4.50-10.00) X 10*3/uL RBC (4.30-5.90) m/uL MCV (80.0-100.0) fL MCH (27.0-32.0) pg Neutrophils # (1.80-7.70) X 10*3/uL Monocytes # (0.20-1.00) X 10*3/uL Eosinophils # (0-0.7) k/uL APTT (22.0-30.0) sec Sodium (137-145) mmol/L Carbon Dioxide (22-30) mmol/L Anion Gap (4.00-12.00) mmol/L BUN (9-20) mg/dL Glucose (74-99) mg/dL POC Glucose (mg/dL) 434 H (75-99) mg/dL Plasma Lactic Acid Ajit 2.6 H* 3.3 H* (0.7-2.0) mmol/L 04/12/21 04/12/21 04/13/21 Range/Units 22:20 22:34 02:16 WBC 11.36 H (4.50-10.00) X 10*3/uL RBC 4.23 L (4.30-5.90) m/uL MCV 101.2 H (80.0-100.0) fL MCH 33.1 H (27.0-32.0) pg Neutrophils # 10.14 H (1.80-7.70) X 10*3/uL Monocytes # 0.11 L (0.20-1.00) X 10*3/uL Eosinophils # 0 L (0-0.7) k/uL APTT (22.0-30.0) sec Sodium (137-145) mmol/L Carbon Dioxide (22-30) mmol/L Anion Gap (4.00-12.00) mmol/L BUN (9-20) mg/dL Glucose (74-99) mg/dL POC Glucose (mg/dL) 453 H (75-99) mg/dL Plasma Lactic Acid Ajit 3.8 H* (0.7-2.0) mmol/L 04/13/21 04/13/21 04/13/21 Range/Units 02:16 02:16 06:35 WBC (4.50-10.00) X 10*3/uL RBC (4.30-5.90) m/uL MCV (80.0-100.0) fL MCH (27.0-32.0) pg Neutrophils # (1.80-7.70) X 10*3/uL Monocytes # (0.20-1.00) X 10*3/uL Eosinophils # (0-0.7) k/uL APTT (22.0-30.0) sec Sodium 133 L (137-145) mmol/L Carbon Dioxide 21 L (22-30) mmol/L Anion Gap 13.80 H (4.00-12.00) mmol/L BUN 22 H (9-20) mg/dL Glucose 267 H 357 H (74-99) mg/dL POC Glucose (mg/dL) (75-99) mg/dL Plasma Lactic Acid Ajit 4.0 H* (0.7-2.0) mmol/L 04/13/21 04/13/21 04/13/21 Range/Units 06:35 07:29 09:57 WBC (4.50-10.00) X 10*3/uL RBC (4.30-5.90) m/uL MCV (80.0-100.0) fL MCH (27.0-32.0) pg Neutrophils # (1.80-7.70) X 10*3/uL Monocytes # (0.20-1.00) X 10*3/uL Eosinophils # (0-0.7) k/uL APTT (22.0-30.0) sec Sodium (137-145) mmol/L Carbon Dioxide (22-30) mmol/L Anion Gap (4.00-12.00) mmol/L BUN (9-20) mg/dL Glucose (74-99) mg/dL POC Glucose (mg/dL) 350 H (75-99) mg/dL Plasma Lactic Acid Ajit 3.1 H* 2.8 H* (0.7-2.0) mmol/L 04/13/21 Range/Units 12:03 WBC (4.50-10.00) X 10*3/uL RBC (4.30-5.90) m/uL MCV (80.0-100.0) fL MCH (27.0-32.0) pg Neutrophils # (1.80-7.70) X 10*3/uL Monocytes # (0.20-1.00) X 10*3/uL Eosinophils # (0-0.7) k/uL APTT (22.0-30.0) sec Sodium (137-145) mmol/L Carbon Dioxide (22-30) mmol/L Anion Gap (4.00-12.00) mmol/L BUN (9-20) mg/dL Glucose (74-99) mg/dL POC Glucose (mg/dL) 377 H (75-99) mg/dL Plasma Lactic Acid Ajit (0.7-2.0) mmol/L
[2021-04-13 22:33] LABS: Glucose,Whole Blood 206 mg/dL (75-99)
[2021-04-14] MEDS: IPRATROPIUM-ALBUTEROL 3 ML NEB INHALATION PRN ×2 (00:05→03:53)
[2021-04-14] MEDS: methylPREDNISolone SOD SUCCI 125 MG/2 ML VIAL IV SCH ×5 (00:30→22:32)
[2021-04-14 00:35] LABS: Glucose,Whole Blood 177 mg/dL (75-99)
[2021-04-14 02:38] LABS: Glucose,Whole Blood 210 mg/dL (75-99)
[2021-04-14] MEDS: HYDROmorphone 1 MG/ML 1 ML SYRINGE IVP PRN ×4 (02:44→22:33)
[2021-04-14] MEDS: INSULIN REGULAR 100 UNIT in SODIUM CHLORIDE 0.9% 100 ML IV SCH ×2 (04:10→22:48)
[2021-04-14 04:26] LABS: Glucose,Whole Blood 194 mg/dL (75-99)
[2021-04-14 06:05] LABS: Glucose,Whole Blood 219 mg/dL (75-99)
[2021-04-14] MEDS: METOPROLOL TARTRATE 50 MG TAB PO SCH (07:35)
[2021-04-14] MEDS: NICOTINE 14MG/24HR PATCH TRANSDERM SCH (07:35)
[2021-04-14] MEDS: FUROSEMIDE 10 MG/ML 4 ML VIAL IV SCH (07:36)
[2021-04-14] MEDS: PANTOPRAZOLE 40 MG TABLET PO SCH (07:36)
[2021-04-14] MEDS: LOSARTAN 50 MG TAB PO SCH (07:36)
[2021-04-14] MEDS: APIXABAN 2.5 MG TABLET PO SCH ×2 (07:36→22:32)
[2021-04-14] MEDS: GABAPENTIN 300 MG CAP PO SCH ×3 (07:36→22:31)
[2021-04-14] MEDS: guaiFENesin 600 MG TABLET.ER PO SCH ×2 (07:36→22:32)
[2021-04-14] MEDS: BUDESONIDE 1 MG/2 ML NEBU INHALATION SCH ×2 (07:47→20:40)
[2021-04-14] MEDS: IPRATROPIUM-ALBUTEROL 3 ML NEB INHALATION SCH ×4 (07:47→20:40)
[2021-04-14] MEDS: FORMOTEROL FUMARATE 20 MCG/2 ML NEBU INHALATION SCH ×2 (07:47→20:40)
[2021-04-14 08:12] LABS: Glucose,Whole Blood 210 mg/dL (75-99)
[2021-04-14] MEDS: AZITHROMYCIN 500 MG in SODIUM CHLORIDE 0.9% 250 ML IVPB SCH (08:58)
[2021-04-14] MEDS: buPROPion SR 150 MG TABLET.ER PO SCH ×2 (08:59→22:32)
[2021-04-14] MEDS: INSULIN ASPART (NovoLOG) 100 UNIT/ML VIAL SQ SCH ×3 (09:13→19:07)
[2021-04-14] MEDS: metFORMIN 500 MG TAB PO SCH ×2 (09:15→22:32)
[2021-04-14 10:12] LABS: Glucose,Whole Blood 289 mg/dL (75-99)
[2021-04-14] MEDS ORDERED: LORazepam 0.5 MG TAB PO PRN (11:22)
[2021-04-14 11:47] LABS: Glucose,Whole Blood 281 mg/dL (75-99)
--- NOTE | 2021-04-14 12:33 | P.PN ---
Subjective Progress Note Date: 04/14/21 Plan patient, known history of COPD, coming in with worsening shortness of breath. He tells that his breathing has been poor since he got COVID 19 in spring. Nevertheless, over the infection, he was not hospitalized and he was essentially treated at home. He is a chronic smoker and smokes about half pack of cigarettes a day. Prior to that used to smoke more. Has a nebulizer at home he does DuoNeb nebulized treatments around the clock has been doing his nebulized treatments more frequently without any significant help. He has increased dyspnea, cough, chest tightness, wheezing. He is known to have diabetes mellitus. He has neuropathy and peripheral vascular disease. He has claudication and previous amputation his lower extremity and he has been maintained on lifelong anticoagulation with Ivelissequferoz knowing that he has had previous history of DVTs of the left lower extremity. No previous history of pulmonary embolism. No coronary artery disease. No angina. No C of CHF and hi s last echocardiogram from 2017 was essentially within normal limits. No pleurisy. No hemoptysis. He is currently on oxygen at 2 L per minute nasal cannula. He is diabetic and other comorbidities include hypertension and hyperlipidemia. Stroke. No history of any congestion heart failure. The first hospitalization for any COPD related complications. He was in the emergency department back in the July 2020 where he had COPD exacerbation he was given a round of steroids and he was discharged home. On today's evaluation of a 2020, the patient denies having any major improvement in his breathing. He still bronchospastic and wheezy and short of breath. The lactic acid level is improving is currently down to 3.0. Rest of the blood work done yesterday was noted. WBC dose of 11 with a hemoglobin of 14. Normal electrolytes. No other new complaints otherwise for now. He daniel ins on bronchodilators. He remains on Rocephin and Zithromax in addition to DuoNeb nebulized treatments and IV Solu-Medrol. Objective - Vital Signs Vital signs: Vital Signs Temp 97.7 F 04/14/21 06:50 Pulse 84 04/14/21 11:23 Resp 20 04/14/21 07:56 BP 158/82 04/14/21 06:50 Pulse Ox 95 04/14/21 06:50 Intake & Output 04/13/21 04/14/21 04/14/21 18:59 06:59 18:59 Intake Total 12.833 91.484 24.6 Output Total 300 Balance 12.833 -208.516 24.6 Intake: Intake, IV Titration 12.833 91.484 24.6 Amount Insulin Regular 100 unit 12.833 91.484 24.6 In Sodium Chloride 0.9% 100 ml @ Titrate IV .Q0M [facility] Rx#:[id number] Output: Urine 300 Other: Voiding Method Toilet Toilet Toilet Urinal Urinal Urinal # Voids 4 2 # Bowel Movements 0 - Exam Gen. appearance, comfortable no acute distress Head exam was generally normal. There was no scleral icterus or corneal arcus. Mucous membranes were moist. Neck was supple and without jugular venous distension, thyromegaly, or carotid bruits. Carotids were easily palpable bilaterally. There was no adenopathy. Lungs sounds are diminished bilaterally and the patient has diffuse expiratory wheezes throughout the lung garcía Cardiac exam revealed the PMI to be normally situated and sized. The rhythm was regular and no extrasystoles were noted during several minutes of auscultation. The first and second heart sounds were normal and physiologic splitting of the second heart sound was noted. There were no murmurs, rubs, clicks, or gallops. Abdominal exam revealed normal bowel sounds. The abdomen was soft, non-tender, and without masses, organomegaly, or appreciable enlargement of the abdominal aorta. Extremities revealed trace edema and there is no cyanosis or clubbing. His diminished pulses Neurologically, the patient is awake and alert and the patient does not have any focal neurological deficit. Cranial nerves are essentially intact. - Labs CBC & Chem 7: 04/13/21 02:16 04/13/21 06:35 Labs: Abnormal Lab Results - Last 24 Hours (Table) 04/13/21 04/13/21 04/13/21 Range/Units 02:16 12:50 14:44 POC Glucose (mg/dL) 317 H (75-99) mg/dL Hemoglobin A1c 8.4 H (4.0-6.0) % Plasma Lactic Acid Ajit 5.0 H* (0.7-2.0) mmol/L 04/13/21 04/13/21 04/13/21 Range/Units 15:55 17:08 17:52 POC Glucose (mg/dL) 252 H 294 H (75-99) mg/dL Hemoglobin A1c (4.0-6.0) % Plasma Lactic Acid Ajit 5.0 H* (0.7-2.0) mmol/L 04/13/21 04/13/21 04/13/21 Range/Units 18:31 19:00 19:52 POC Glucose (mg/dL) 316 H 304 H (75-99) mg/dL Hemoglobin A1c (4.0-6.0) % Plasma Lactic Acid Ajit 3.0 H* (0.7-2.0) mmol/L 04/13/21 04/13/21 04/14/21 Range/Units 20:36 22:30 00:33 POC Glucose (mg/dL) 237 H 206 H 177 H (75-99) mg/dL Hemoglobin A1c (4.0-6.0) % Plasma Lactic Acid Ajit (0.7-2.0) mmol/L 04/14/21 04/14/21 04/14/21 Range/Units 02:36 04:25 04:42 POC Glucose (mg/dL) 210 H 194 H (75-99) mg/dL Hemoglobin A1c (4.0-6.0) % Plasma Lactic Acid Ajit 3.6 H* (0.7-2.0) mmol/L 04/14/21 04/14/21 04/14/21 Range/Units 06:04 08:10 10:07 POC Glucose (mg/dL) 219 H 210 H (75-99) mg/dL Hemoglobin A1c (4.0-6.0) % Plasma Lactic Acid Ajit 3.0 H* (0.7-2.0) mmol/L 04/14/21 04/14/21 Range/Units 10:09 11:43 POC Glucose (mg/dL) 289 H 281 H (75-99) mg/dL Hemoglobin A1c (4.0-6.0) % Plasma Lactic Acid Ajit (0.7-2.0) mmol/L Microbiology - Last 24 Hours (Table) 04/12/21 Unknown Blood Culture - Preliminary Blood No Growth after 24 hours Assessment and Plan Plan: 1 acute COPD exacerbation with secondary shortness of breath. Limited improvement since yesterday. 2 acute hypoxic respiratory failure currently on oxygen 2 L per minute nasal can nula, secondary to COPD exacerbation. 3 known history of COPD with previous history of smoking 4 diabetes mellitus type 2 5 peripheral vascular disease 6 peripheral neuropathy 7 hypertension 8 hyperlipidemia 9 previous history of DVT of the left lower extremity and the patient has been maintained on long-term anticoagulation with Eliquis Plan Agree on the current treatment of bronchodilators and steroids and antibiotics. Monitor blood sugar and use sliding scale insulin coverage in addition to long- acting insulin. Continue same treatment for now.. Outpatient follow-up regarding COPD. We'll follow.
[2021-04-14] MEDS: HYDROcodone/APAP 7.5-325MG 1 EACH TAB PO PRN (12:54)
--- NOTE | 2021-04-14 13:28 | PN ---
PROGRESS NOTE DATE OF SERVICE: 04/14/2021 This 60-year-old gentleman who was admitted with COPD, acute exacerbation, also had some anxiety. No chest pain. No palpitations. No fever. The patient had elevated lactic acid, also. Covid-19 is negative. PHYSICAL EXAMINATION: Alert and oriented x3. Pulse is 84, blood pressure 158/82, respirations 16, temperature 97.7, pulse ox 94% on 2 L. HEENT: Conjunctivae normal. NECK: No jugular venous distention. CARDIOVASCULAR: S1, S2 muffled. RESPIRATION: Breath sounds diminished at the bases. Scattered rhonchi. No crackles. ABDOMEN: Soft. NERVOUS SYSTEM: No focal deficit. ASSESSMENT: 1. Chronic obstructive pulmonary disease, acute exacerbation, with acute purulent tracheobronchitis with failure of outpatient treatment with possible sepsis, present on admission. 2. Elevated lactic acid. 3. Severe anxiety. 4. Diffuse tremors. 5. Diabetes mellitus, type 2, uncontrolled, with hyperglycemia. 6. Increased mean corpuscular volume. 7. History of chronic obstructive pulmonary disease. 8. History of deep vein thrombosis. 9. Hypertension. 10.History of degenerative joint disease. 11.History of nicotine dependence. 12.History of THC. 13.Obesity with body mass index 41.1. 14.Bilateral leg edema for evaluation. RECOMMENDATIONS AND DISCUSSION: I recommend to continue current medications, continue with symptomatic treatment. Continue IV steroids, bronchodilators and antibiotics. The cultures are negative so far. Will follow the patient closely with Dr. Jean-Baptiste and Dr. Perry. Prognosis guarded. Further recommendations to follow. See orders for details. Will add Ativan p.r.n. for anxiety. MMODL / IJN: [id number] /
[2021-04-14 14:05] LABS: Glucose,Whole Blood 177 mg/dL (75-99)
[2021-04-14 16:09] LABS: Glucose,Whole Blood 135 mg/dL (75-99)
--- NOTE | 2021-04-14 17:40 | PN ---
PROGRESS NOTE DATE OF SERVICE: 04/14/2021 REASON FOR FOLLOWUP: Tracheobronchitis and a question of pneumonia. INTERVAL HISTORY: The patient is currently afebrile. The patient is breathing slightly comfortably. The denies having any chest pain. Did have a cough but less sputum production. No abdominal pain or diarrhea. PHYSICAL EXAMINATION: Blood pressure is 126/68 with a pulse of 75, temperature 98.1. He is 94% on room air. GENERAL DESCRIPTION: General description is a middle-aged male up in the chair in no distress. RESPIRATORY SYSTEM: Unlabored breathing. Decreased intensity of breath sounds. wheeze. HEART: S1, S2. Regular rate and rhythm. ABDOMEN: Soft. No tenderness. LABS: Lactic acid 3.1. Sputum culture pending. DIAGNOSTIC IMPRESSION AND PLAN: Patient admitted to hospital with shortness of breath and cough concerning for chronic obstructive pulmonary disease exacerbation with tracheobronchitis. Concern for possible pneumonia. Patient is covered with Rocephin ; to continue while waiting for the culture to finalize and monitor clinical course closely. MMODL / IJN: [id number] /
[2021-04-14 18:16] LABS: Glucose,Whole Blood 204 mg/dL (75-99)
[2021-04-14 20:34] LABS: Glucose,Whole Blood 308 mg/dL (75-99)
[2021-04-14] MEDS: ATORVASTATIN 80 MG TAB PO SCH (22:31)
[2021-04-14] MEDS: MELATONIN 5 MG TABLET PO SCH (22:31)
[2021-04-14 22:38] LABS: Glucose,Whole Blood 184 mg/dL (75-99)
[2021-04-15 00:09] LABS: Glucose,Whole Blood 237 mg/dL (75-99)
[2021-04-15 02:04] LABS: Glucose,Whole Blood 244 mg/dL (75-99)
[2021-04-15] MEDS: IPRATROPIUM-ALBUTEROL 3 ML NEB INHALATION PRN ×2 (03:11→06:01)
[2021-04-15 04:20] LABS: Glucose,Whole Blood 168 mg/dL (75-99)
[2021-04-15] MEDS: HYDROmorphone 1 MG/ML 1 ML SYRINGE IVP PRN ×3 (05:48→16:25)
[2021-04-15] MEDS: methylPREDNISolone SOD SUCCI 125 MG/2 ML VIAL IV SCH ×3 (05:49→18:19)
[2021-04-15 06:06] LABS: Glucose,Whole Blood 134 mg/dL (75-99)
[2021-04-15] MEDS: BUDESONIDE 1 MG/2 ML NEBU INHALATION SCH ×2 (07:32→20:08)
[2021-04-15] MEDS: FORMOTEROL FUMARATE 20 MCG/2 ML NEBU INHALATION SCH ×2 (07:32→20:08)
[2021-04-15] MEDS: IPRATROPIUM-ALBUTEROL 3 ML NEB INHALATION SCH ×4 (07:32→20:08)
[2021-04-15] MEDS: metFORMIN 500 MG TAB PO SCH ×2 (07:54→21:41)
[2021-04-15] MEDS: AZITHROMYCIN 500 MG TAB PO SCH (07:54)
[2021-04-15] MEDS: LOSARTAN 50 MG TAB PO SCH (07:54)
[2021-04-15] MEDS: PANTOPRAZOLE 40 MG TABLET PO SCH (07:54)
[2021-04-15] MEDS: GABAPENTIN 300 MG CAP PO SCH ×3 (07:54→21:41)
[2021-04-15] MEDS: guaiFENesin 600 MG TABLET.ER PO SCH ×2 (07:54→21:41)
[2021-04-15] MEDS: buPROPion SR 150 MG TABLET.ER PO SCH ×2 (07:54→21:41)
[2021-04-15] MEDS: APIXABAN 2.5 MG TABLET PO SCH ×2 (07:55→21:41)
[2021-04-15] MEDS: NICOTINE 14MG/24HR PATCH TRANSDERM SCH (07:55)
[2021-04-15] MEDS: METOPROLOL TARTRATE 50 MG TAB PO SCH (07:55)
[2021-04-15] MEDS: FUROSEMIDE 10 MG/ML 4 ML VIAL IV SCH (07:56)
[2021-04-15 08:01] LABS: Glucose,Whole Blood 227 mg/dL (75-99)
[2021-04-15] MEDS: HYDROcodone/APAP 7.5-325MG 1 EACH TAB PO PRN ×3 (08:03→21:41)
[2021-04-15] MEDS: INSULIN ASPART (NovoLOG) 100 UNIT/ML VIAL SQ SCH ×3 (08:03→18:20)
[2021-04-15] MEDS ORDERED: ERGOCALCIFEROL 1,250 MCG (50,000 IU) CAPSULE PO SCH (09:00)
[2021-04-15 10:24] LABS: Glucose,Whole Blood 210 mg/dL (75-99)
[2021-04-15 11:59] LABS: Glucose,Whole Blood 125 mg/dL (75-99)
--- NOTE | 2021-04-15 13:55 | PN ---
PROGRESS NOTE DATE OF SERVICE: 04/15/2021 REASON FOR FOLLOWUP: Pneumonia/tracheobronchitis. INTERVAL HISTORY: The patient is afebrile. The patient is breathing more comfortably. Patient denies having any chest pain. He did have a cough with occasional sputum production. No abdominal pain or diarrhea. PHYSICAL EXAMINATION: Blood pressure is 129/75 with a pulse of 79, temperature 97.6. He is 93% on 2 L nasal cannula. GENERAL DESCRIPTION: General description is a middle-aged male lying in bed in no distress. RESPIRATORY SYSTEM: Unlabored breathing. Occasional wheeze. HEART: S1, S2. Regular rate and rhythm. ABDOMEN: Soft. No tenderness. LABS: Sputum culture is pending. Blood culture has been negative. DIAGNOSTIC IMPRESSION AND PLAN: Patient admitted to hospital with shortness of breath and cough with concern for COPD exacerbation, tracheobronchitis/pneumonia. The patient is currently covered with Rocephin and Zithromax; to continue while waiting for the culture to finalize and monitor his clinical course closely. MMODL / IJN: [id number] /
[2021-04-15 13:59] LABS: Glucose,Whole Blood 198 mg/dL (75-99)
--- NOTE | 2021-04-15 16:01 | P.PN ---
Subjective Progress Note Date: 04/15/21 Principal diagnosis: Exacerbation of COPD 60-year-old patient, known history of COPD, coming in with worsening shortness of breath. He tells that his breathing has been poor since he got COVID 19 in spring. Nevertheless, over the infection, he was not hospitalized and he was essentially treated at home. He is a chronic smoker and smokes about half pack of cigarettes a day. Prior to that used to smoke more. Has a nebulizer at home he does DuoNeb nebulized treatments around the clock has been doing his nebulized treatments more frequently without any significant help. He has increased dyspnea, cough, chest tightness, wheezing. He is known to have diabetes mellitus. He has neuropathy and peripheral vascular disease. He has claudication and previous amputation his lower extremity and he has been maintained on lifelong anticoagulation with Eliquis knowing that he has had previous history of DVTs of the left lower extremity. No previous history of pulmonary embolism. No coronary artery disease. No angina. No C of CHF and his last echocardiogram from 2017 was essentially within normal limits. No pleurisy. No hemoptysis. He is currently on oxygen at 2 L per minute nasal cannula. He is diabetic and other comorbidities include hypertension and hyperlipidemia. Stroke. No history of any congestion heart failure. The first hospitalization for any COPD related complications. He was in the emergency department back in the July 2020 where he had COPD exacerbation he was given a round of steroids and he was discharged home. On today's evaluation of a 2020, the patient denies having any major improvement in his breathing. He still bronchospastic and wheezy and short of breath. The lactic acid level is improving is currently down to 3.0. Rest of the blood work done yesterday was noted. WBC dose of 11 with a hemoglobin of 14. Normal electrolytes. No other new complaints otherwise for now. He remains on bronchodilators. He remains on Rocephin and Zithromax in addition to DuoNeb nebulized treatments and IV Solu-Medrol. On 04/15/2021 patient seen in follow-up on medical surgical floor, patient is resting comfortably in bed, he still has chest congestion, occasional cough, some scattered wheezing. Overall he states he is feeling better, he is currently on 2 L of oxygen pulse ox 93%, he is on a daily dose of Lasix, he is in -1.3 and the fluid balance over the last 24 hours, he remains on high-dose steroids and nebulized bronchodilators, he remains on azithromycin and Rocephin. His had no fever or chills overnight. Procalcitonin level came back negative at 0.04. COVID 19 PCR was negative. No Chest discomfort. Objective - Vital Signs Vital signs: Vital Signs Temp 98.1 F 04/15/21 15:00 Pulse 79 04/15/21 15:00 Resp 16 04/15/21 15:00 BP 129/75 04/15/21 15:00 Pulse Ox 93 L 04/15/21 15:00 Intake & Output 04/14/21 04/15/21 04/15/21 18:59 06:59 18:59 Intake Total 82.417 56.116 678.525 Output Total 1500 1400 Balance -1417.583 56.116 -721.475 Intake: Intake, IV Titration 82.417 56.116 12.525 Amount Insulin Regular 100 unit 82.417 56.116 12.525 In Sodium Chloride 0.9% 100 ml @ Titrate IV .Q0M [facility] Rx#:[id number] Oral 666 Output: Urine 1500 1400 Other: Voiding Method Toilet Urinal # Voids 4 # Bowel Movements 0 - Exam GENERAL EXAM: Alert, very pleasant, 60-year-old white male, on 2 L of oxygen is 93%, sitting up on his back, comfortable in no apparent distress. HEAD: Normocephalic/atraumatic. EYES: Normal reaction of pupils, equal size. Conjunctiva pink, sclera white. NOSE: Clear with pink turbinates. THROAT: No erythema or exudates. NECK: No masses, no JVD, no thyroid enlargement, no adenopathy. CHEST: No chest wall deformity. Symmetrical expansion. LUNGS: Equal air entry with diffuse wheezes CVS: Regular rate and rhythm, normal S1 and S2, no gallops, no murmurs, no rubs ABDOMEN: Soft, nontender. No hepatosplenomegaly, normal bowel sounds, no guarding or rigidity. EXTREMITIES: No clubbing, no edema, no cyanosis, 2+ pulses and upper and lower extremities. MUSCULOSKELETAL: Muscle strength and tone normal. SPINE: No scoliosis or deformity SKIN: No rashes CENTRAL NERVOUS SYSTEM: Alert and oriented -3. No focal deficits, tone is normal in all 4 extremities. PSYCHIATRIC: Alert and oriented -3. Appropriate affect. Intact judgment and insight. - Labs CBC & Chem 7: 04/13/21 02:16 04/13/21 06:35 Labs: Abnormal Lab Results - Last 24 Hours (Table) 04/14/21 04/14/21 04/14/21 Range/Units 16:07 16:56 18:14 POC Glucose (mg/dL) 135 H 204 H (75-99) mg/dL Plasma Lactic Acid Ajit 2.6 H* (0.7-2.0) mmol/L 04/14/21 04/14/21 04/14/21 Range/Units 20:32 20:57 22:36 POC Glucose (mg/dL) 308 H 184 H (75-99) mg/dL Plasma Lactic Acid Ajit 3.6 H* (0.7-2.0) mmol/L 04/15/21 04/15/21 04/15/21 Range/Units 00:08 02:03 04:18 POC Glucose (mg/dL) 237 H 244 H 168 H (75-99) mg/dL Plasma Lactic Acid Ajit (0.7-2.0) mmol/L 04/15/21 04/15/21 04/15/21 Range/Units 06:04 06:12 07:59 POC Glucose (mg/dL) 134 H 227 H (75-99) mg/dL Plasma Lactic Acid Ajit 3.2 H* (0.7-2.0) mmol/L 04/15/21 04/15/21 04/15/21 Range/Units 10:22 11:58 13:58 POC Glucose (mg/dL) 210 H 125 H 198 H (75-99) mg/dL Plasma Lactic Acid Ajit (0.7-2.0) mmol/L Microbiology - Last 24 Hours (Table) 04/13/21 20:28 Gram Stain - Preliminary Sputum Sputum Culture - Preliminary 04/12/21 Unknown Blood Culture - Preliminary Blood No Growth after 48 hours Assessment and Plan Plan: 1 acute COPD exacerbation with secondary shortness of breath. Limited i mprovement since yesterday. 2 acute hypoxic respiratory failure currently on oxygen 2 L per minute nasal cannula, secondary to COPD exacerbation. 3 known history of COPD with previous history of smoking 4 diabetes mellitus type 2 5 peripheral vascular disease 6 peripheral neuropathy 7 hypertension 8 hyperlipidemia 9 previous history of DVT of the left lower extremity and the patient has been maintained on long-term anticoagulation with Eliquis Plan: Continue current medical treatment, continue current dose Lasix Continue nebulized bronchodilators and IV steroids Follow-up chest x-ray tomorrow The patient is improving, Not quite back to baseline Smoking cessation was advised, and patient is currently trying to cut back and is down to 2 cigarettes per day We'll reevaluate in another 24 hours Time with Patient: Less than 30
[2021-04-15 16:07] LABS: Glucose,Whole Blood 294 mg/dL (75-99)
[2021-04-15 17:45] LABS: Glucose,Whole Blood 166 mg/dL (75-99)
[2021-04-15] MEDS: INSULIN REGULAR 100 UNIT in SODIUM CHLORIDE 0.9% 100 ML IV SCH (18:10)
[2021-04-15 20:28] LABS: Glucose,Whole Blood 141 mg/dL (75-99)
[2021-04-15] MEDS: MELATONIN 5 MG TABLET PO SCH (21:41)
[2021-04-15] MEDS: ATORVASTATIN 80 MG TAB PO SCH (21:41)
[2021-04-15 22:04] LABS: Glucose,Whole Blood 172 mg/dL (75-99)
[2021-04-16 00:04] LABS: Glucose,Whole Blood 211 mg/dL (75-99)
[2021-04-16] MEDS: HYDROmorphone 1 MG/ML 1 ML SYRINGE IVP PRN ×4 (00:26→21:46)
[2021-04-16] MEDS: INSULIN REGULAR 100 UNIT in SODIUM CHLORIDE 0.9% 100 ML IV SCH (00:27)
[2021-04-16] MEDS: methylPREDNISolone SOD SUCCI 125 MG/2 ML VIAL IV SCH ×4 (00:27→17:54)
[2021-04-16] MEDS: IPRATROPIUM-ALBUTEROL 3 ML NEB INHALATION PRN ×2 (00:56→04:53)
[2021-04-16 02:11] LABS: Glucose,Whole Blood 199 mg/dL (75-99)
--- NOTE | 2021-04-16 03:10 | P.PN ---
Subjective Progress Note Date: 04/15/21 This is a 60-year-old male who was recently admitted with COPD acute exacerbation also along with some anxiety and elevated lactic acid. Pulmonary and infectious disease following closely patient is maintained on IV antibiotics along with IV steroids and breathing inhalational treatments. Patient continues on oxygen at 2 L and does not normally wear oxygen in the outpatient setting. Continued on IV lasix as well and will continue with for now. Repeat am labs and may consider transitioning to oral lasix. Review of systems: Constitutional: No reports of fatigue, fever, or chills Cardiovascular: No reports of chest pain or palpitations Respiratory: reports continued shortness of breath with cough and wheezing GI: No reports of nausea, vomiting, or diarrhea : No reports of dysuria or retention Neurovascular: No reports of weakness or numbness All medications have been reviewed Objective - Vital Signs Vital signs: Vital Signs Temp 97.6 F 04/15/21 07:00 Pulse 90 04/15/21 11:37 Resp 18 04/15/21 08:00 BP 129/75 04/15/21 07:00 Pulse Ox 93 L 04/15/21 07:00 Intake & Output 04/14/21 04/15/21 04/15/21 18:59 06:59 18:59 Intake Total 82.417 56.116 234.525 Output Total 1500 Balance -1417.583 56.116 234.525 Intake: Intake, IV Titration 82.417 56.116 12.525 Amount Insulin Regular 100 unit 82.417 56.116 12.525 In Sodium Chloride 0.9% 100 ml @ Titrate IV .Q0M [facility] Rx#:[id number] Oral 222 Output: Urine 1500 Other: Voiding Method Toilet Urinal # Voids 4 # Bowel Movements 0 - Exam Gen: This is a 60-year-old male awake, alert and oriented 3, well-developed, well-nourished, obese. HEENT: Head is atraumatic, normocephalic. Pupils equal, round. Sclerae is anicteric. NECK: Supple. No JVD. No lymphadenopathy. No thyromegaly. LUNGS: diminished breath sounds with diffuse wheezing noted throughout along with some scattered rhonchi. No intercostal retractions. HEART: Regular rate and rhythm. No murmur. ABDOMEN: Soft. obese. Bowel sounds are present. No masses. No tenderness. EXTREMITIES: No pedal edema. No calf tenderness. NEUROLOGICAL: Patient is awake, alert and oriented x3. Cranial nerves 2 through 12 are grossly intact. - Labs CBC & Chem 7: 04/13/21 02:16 04/13/21 06:35 Labs: Abnormal Lab Results - Last 24 Hours (Table) 04/14/21 04/14/21 04/14/21 Range/Units 16:07 16:56 18:14 POC Glucose (mg/dL) 135 H 204 H (75-99) mg/dL Plasma Lactic Acid Ajit 2.6 H* (0.7-2.0) mmol/L 04/14/21 04/14/21 04/14/21 Range/Units 20:32 20:57 22:36 POC Glucose (mg/dL) 308 H 184 H (75-99) mg/dL Plasma Lactic Acid Ajit 3.6 H* (0.7-2.0) mmol/L 04/15/21 04/15/21 04/15/21 Range/Units 00:08 02:03 04:18 POC Glucose (mg/dL) 237 H 244 H 168 H (75-99) mg/dL Plasma Lactic Acid Ajit (0.7-2.0) mmol/L 04/15/21 04/15/21 04/15/21 Range/Units 06:04 06:12 07:59 POC Glucose (mg/dL) 134 H 227 H (75-99) mg/dL Plasma Lactic Acid Ajit 3.2 H* (0.7-2.0) mmol/L 04/15/21 04/15/21 04/15/21 Range/Units 10:22 11:58 13:58 POC Glucose (mg/dL) 210 H 125 H 198 H (75-99) mg/dL Plasma Lactic Acid Ajit (0.7-2.0) mmol/L Microbiology - Last 24 Hours (Table) 04/13/21 20:28 Gram Stain - Preliminary Sputum Sputum Culture - Preliminary 04/12/21 Unknown Blood Culture - Preliminary Blood No Growth after 48 hours Assessment and Plan Assessment: Chronic obstructive pulmonary disease, acute exacerbation with acute purulent tracheobronchitis with failure of outpatient treatment with possible sepsis, present on admission Elevated lactic acid Severe anxiety Diffuse tremors Diabetes mellitus type 2 uncontrolled with hyperglycemia Increased MCV history of chronic obstructive pulmonary disease history of deep vein thrombosis Hypertension history of degenerative joint disease history of nicotine dependence history of THC Obesity with a body mass index of 41.1 Bilateral leg edema for evaluation Plan: Recommend to continue with current medications and will continue to monitor closely. Will repeat am labs. Continue with breathing inhalational treatments and IV steroids. Pulmonary and infectious disease following. Encouraged increased activity and wean FI02 as tolerated. Will do home 02 eval and discuss with case management. Patient continues on insulin drip and will continue with accuchecks per protocol. Due to multiple complex medical issues, prognosis is guarded.
[2021-04-16 04:20] LABS: Glucose,Whole Blood 251 mg/dL (75-99)
[2021-04-16] MEDS: HYDROcodone/APAP 7.5-325MG 1 EACH TAB PO PRN ×3 (05:07→17:54)
[2021-04-16 06:03] LABS: Glucose,Whole Blood 217 mg/dL (75-99)
[2021-04-16 06:56] LABS: Basophils % (A) 0 %; Eosinophils % (A) 0 %; HCT 42.3 % (39.0-53.0); HGB 13.7 gm/dL (13.0-17.5); Lymphocytes # (A) 0.9 k/uL (1.0-4.8); Lymphocytes % (A) 6 %; MCH 33.5 pg (25.0-35.0); MCHC 32.4 g/dL (31.0-37.0); MCV 103.4 fL (80.0-100.0); Macrocytosis Slight; Mean Platelet Volume 7.1; Monocytes # (A) 0.5 k/uL (0-1.0); Monocytes % (A) 4 %; Neutrophils # (A) 12.1 k/uL (1.3-7.7); Neutrophils % (A) 89 %; Platelet Count 294 k/uL (150-450); RBC 4.09 m/uL (4.30-5.90); RDW 12.9 % (11.5-15.5); WBC 13.6 k/uL (3.8-10.6)
[2021-04-16] MEDS: FORMOTEROL FUMARATE 20 MCG/2 ML NEBU INHALATION SCH ×2 (07:03→21:16)
[2021-04-16] MEDS: IPRATROPIUM-ALBUTEROL 3 ML NEB INHALATION SCH ×4 (07:03→21:06)
[2021-04-16] MEDS: BUDESONIDE 1 MG/2 ML NEBU INHALATION SCH ×2 (07:03→21:06)
[2021-04-16 07:19] LABS: African American GFR (CKD) >90 (>60 ml/min/1.73 sqM); Anion Gap 10 mmol/L; Blood Urea Nitrogen 32 mg/dL (9-20); Calcium 9.6 mg/dL (8.4-10.2); Carbon Dioxide 24 mmol/L (22-30); Chloride 100 mmol/L (98-107); Glucose 207 mg/dL (74-99); Non-African American GFR(CKD) >90 (>60 ml/min/1.73 sqM); Potassium 4.7 mmol/L (3.5-5.1); Sodium 134 mmol/L (137-145)
[2021-04-16 07:37] LABS: Glucose,Whole Blood 210 mg/dL (75-99)
[2021-04-16] MEDS: metFORMIN 500 MG TAB PO SCH ×2 (07:38→21:47)
[2021-04-16] MEDS: METOPROLOL TARTRATE 50 MG TAB PO SCH (07:38)
[2021-04-16] MEDS: LOSARTAN 50 MG TAB PO SCH (07:39)
[2021-04-16] MEDS: GABAPENTIN 300 MG CAP PO SCH ×3 (07:39→21:47)
[2021-04-16] MEDS: PANTOPRAZOLE 40 MG TABLET PO SCH (07:39)
[2021-04-16] MEDS: guaiFENesin 600 MG TABLET.ER PO SCH ×2 (07:39→21:48)
[2021-04-16] MEDS: APIXABAN 2.5 MG TABLET PO SCH ×2 (07:40→21:48)
[2021-04-16] MEDS: NICOTINE 14MG/24HR PATCH TRANSDERM SCH (07:40)
[2021-04-16] MEDS: FUROSEMIDE 10 MG/ML 4 ML VIAL IV SCH (07:40)
[2021-04-16] MEDS: INSULIN ASPART (NovoLOG) 100 UNIT/ML VIAL SQ SCH ×3 (07:41→17:55)
--- NOTE | 2021-04-16 08:16 | XR ---
EXAMINATION TYPE: XR chest 1V portable DATE OF EXAM: 04/16/2021 COMPARISON: Chest x-ray 04/12/2021 HISTORY: Shortness of breath TECHNIQUE: Single frontal view of the chest is obtained. FINDINGS: Patient is rotated. Some minimal patchy basilar density is present. There is no evident pn eumothorax. Cardiac mediastinal silhouette may appear more prominently due to technique, rotation. No sizable effusion evident. IMPRESSION: Probable basilar atelectasis, correlate to exclude pneumonia
[2021-04-16 10:06] LABS: Glucose,Whole Blood 273 mg/dL (75-99)
[2021-04-16] MEDS: buPROPion SR 150 MG TABLET.ER PO SCH ×2 (10:17→21:47)
[2021-04-16] MEDS: AZITHROMYCIN 500 MG TAB PO SCH (10:18)
--- NOTE | 2021-04-16 11:27 | P.PN ---
Subjective Progress Note Date: 04/16/21 Principal diagnosis: COPD exacerbation 60-year-old patient, known history of COPD, coming in with worsening shortness of breath. He tells that his breathing has been poor since he got COVID 19 in spring. Nevertheless, over the infection, he was not hospitalized and he was essentially treated at home. He is a chronic smoker and smokes about half pack of cigarettes a day. Prior to that used to smoke more. Has a nebulizer at home he does DuoNeb nebulized treatments around the clock has been doing his nebulized treatments more frequently without any significant help. He has increased dyspnea, cough, chest tightness, wheezing. He is known to have diabetes mellitus. He has neuropathy and peripheral vascular disease. He has claudication and previous amputation his lower extremity and he has been maintained on lifelong anticoagulation with Eliquis knowing that he has had previous history of DVTs of the left lower extremity. No previous history of pulmonary embolism. No coronary artery disease. No angina. No C of CHF and his last echocardiogram from 2017 was essentially within normal limits. No pleurisy. No hemoptysis. He is currently on oxygen at 2 L per minute nasal cannula. He is diabetic and other comorbidities include hypertension and hyp erlipidemia. Stroke. No history of any congestion heart failure. The first hospitalization for any COPD related complications. He was in the emergency department back in the July 2020 where he had COPD exacerbation he was given a round of steroids and he was discharged home. On today's evaluation of a 2020, the patient denies having any major improvement in his breathing. He still bronchospastic and wheezy and short of breath. The lactic acid level is improving is currently down to 3.0. Rest of the blood work done yesterday was noted. WBC dose of 11 with a hemoglobin of 14. Normal electrolytes. No other new complaints otherwise for now. He remains on bronchodilators. He remains on Rocephin and Zithromax in addition to DuoNeb nebulized treatments and IV Solu-Medrol. On 04/15/2021 patient seen in follow-up on medical surgical floor, patient is resting comfortably in bed, he still has chest congestion, occasional cough, some scattered wheezing. Overall he states he is feeling better, he is currently on 2 L of oxygen pulse ox 93%, he is on a daily dose of Lasix, he is in -1.3 and the fluid balance over the last 24 hours, he remains on high-dose steroids and nebulized bronchodilators, he remains on azithromycin and Rocephin. His had no fever or chills overnight. Procalcitonin level came back negative at 0.04. COVID 19 PCR was negative. No Chest discomfort. The patient is seen today 04/16/2021 in follow-up on the regular medical floor. He is currently sitting up in a chair at the bedside. Awake and alert in no acute distress. Still with some dyspnea on exertion. There was some shortness of breath and wheezing. Loose nonproductive cough. Chest x-ray shows some basilar atelectasis otherwise no acute process. Sputum culture revealed no growth. Blood cultures reveal no growth. White count 13.6. Hemoglobin 13.7. Sodium 134. Potassium 4.7. Creatinine 0.92. He remains on DuoNeb inhalations, Pulmicort and Perforomist inhalations, IV Solu-Medrol. Empiric antibiotics in the form of azithromycin and ceftriaxone. Remains on IV diuretics. NicoDerm patch in place. Anticoagulated with Eliquis. Objective - Vital Signs Vital signs: Vital Signs Temp 96.6 F L 04/16/21 08:02 Pulse 72 04/16/21 10:25 Resp 16 04/16/21 08:02 BP 152/83 04/16/21 08:02 Pulse Ox 100 04/16/21 08:02 Intake & Output 04/15/21 04/16/21 04/16/21 18:59 06:59 18:59 Intake Total 711.625 70.542 17.6 Output Total 1400 1150 300 Balance -688.375 -1079.458 -282.4 Intake: Intake, IV Titration 45.625 70.542 17.6 Amount Insulin Regular 100 unit 45.625 70.542 17.6 In Sodium Chloride 0.9% 100 ml @ Titrate IV .Q0M [facility] Rx#:[id number] Oral 666 Output: Urine 1400 1150 300 Other: Voiding Method Toilet Toilet Urinal Urinal # Voids 1 1 - Exam GENERAL EXAM: Alert, pleasant 60-year-old gentleman, on room air, comfortable in no apparent distress. HEAD: Normocephalic. EYES: Normal reaction of pupils, equal size. NOSE: Clear with pink turbinates. THROAT: No erythema or exudates. NECK: No masses, no JVD. CHEST: No chest wall deformity. LUNGS: Equal air entry with bilateral wheeze, few scattered rhonchi. CVS: S1 and S2 normal with no audible murmur, regular rhythm. ABDOMEN: No hepatosplenomegaly, normal bowel sounds, no guarding or rigidity. SPINE: No scoliosis or deformity SKIN: No rashes CENTRAL NERVOUS SYSTEM: No focal deficits, tone is normal in all 4 extremities. EXTREMITIES: There is no peripheral edema. No clubbing, no cyanosis. Peripheral pulses are intact. - Labs CBC & Chem 7: 04/16/21 06:26 04/16/21 06:26 Labs: Abnormal Lab Results - Last 24 Hours (Table) 04/15/21 04/15/21 04/15/21 Range/Units 11:58 13:58 16:05 WBC (3.8-10.6) k/uL RBC (4.30-5.90) m/uL MCV (80.0-100.0) fL Neutrophils # (1.3-7.7) k/uL Lymphocytes # (1.0-4.8) k/uL Sodium (137-145) mmol/L BUN (9-20) mg/dL Glucose (74-99) mg/dL POC Glucose (mg/dL) 125 H 198 H 294 H (75-99) mg/dL 04/15/21 04/15/21 04/15/21 Range/Units 17:43 20:27 22:02 WBC (3.8-10.6) k/uL RBC (4.30-5.90) m/uL MCV (80.0-100.0) fL Neutrophils # (1.3-7.7) k/uL Lymphocytes # (1.0-4.8) k/uL Sodium (137-145) mmol/L BUN (9-20) mg/dL Glucose (74-99) mg/dL POC Glucose (mg/dL) 166 H 141 H 172 H (75-99) mg/dL 04/16/21 04/16/21 04/16/21 Range/Units 00:03 02:10 04:19 WBC (3.8-10.6) k/uL RBC (4.30-5.90) m/uL MCV (80.0-100.0) fL Neutrophils # (1.3-7.7) k/uL Lymphocytes # (1.0-4.8) k/uL Sodium (137-145) mmol/L BUN (9-20) mg/dL Glucose (74-99) mg/dL POC Glucose (mg/dL) 211 H 199 H 251 H (75-99) mg/dL 04/16/21 04/16/21 04/16/21 Range/Units 06:01 06:26 06:26 WBC 13.6 H (3.8-10.6) k/uL RBC 4.09 L (4.30-5.90) m/uL MCV 103.4 H (80.0-100.0) fL Neutrophils # 12.1 H (1.3-7.7) k/uL Lymphocytes # 0.9 L (1.0-4.8) k/uL Sodium 134 L (137-145) mmol/L BUN 32 H (9-20) mg/dL Glucose 207 H (74-99) mg/dL POC Glucose (mg/dL) 217 H (75-99) mg/dL 04/16/21 04/16/21 Range/Units 07:36 10:05 WBC (3.8-10.6) k/uL RBC (4.30-5.90) m/uL MCV (80.0-100.0) fL Neutrophils # (1.3-7.7) k/uL Lymphocytes # (1.0-4.8) k/uL Sodium (137-145) mmol/L BUN (9-20) mg/dL Glucose (74-99) mg/dL POC Glucose (mg/dL) 210 H 273 H (75-99) mg/dL Microbiology - Last 24 Hours (Table) 04/13/21 20:28 Gram Stain - Final Sputum Sputum Culture - Final 04/12/21 Unknown Blood Culture - Preliminary Blood No Growth after 72 hours Assessment and Plan Assessment: 1 acute COPD exacerbation with secondary shortness of breath. Slow to progress. 2 acute hypoxic respiratory failure currently on oxygen 2 L per minute nasal cannula, secondary to COPD exacerbation. 3 known history of smoking 4 diabetes mellitus type 2 5 peripheral vascular disease 6 peripheral neuropathy 7 hypertension 8 hyperlipidemia 9 previous history of DVT of the left lower extremity and the patient has been maintained on long-term anticoagulation with Eliquis Plan: The patient was seen and evaluated by Dr. Perry Chest x-ray and labs reviewed Continue IV diuretics Continue bronchodilators, IV Solu-Medrol, empiric antibiotics Again educated regarding the importance of complete smoking cessation NicoDerm patch remains in place Probable discharge in a.m. I, the cosigning physician, performed a history & physical examination of the patient. Lungs sounds with bilateral wheeze, few scattered rhonchi Maintaining good O2 saturations in the 90s on room air. I discussed the assessment and plan of care with my nurse practitioner, Elidia Irwin. I attest to the above note as dictated by her.
[2021-04-16 11:48] LABS: Glucose,Whole Blood 327 mg/dL (75-99)
[2021-04-16 12:13] LABS: Glucose,Whole Blood 249 mg/dL (75-99)
--- NOTE | 2021-04-16 16:04 | PN ---
PROGRESS NOTE DATE OF SERVICE: 04/16/2021 REASON FOR FOLLOWUP: Pneumonia/tracheobronchitis. INTERVAL HISTORY: The patient is afebrile. The patient is breathing more comfortably. He is currently on room air. The patient denies having any chest pain. Continue to complain of wheezing and coughing. No vomiting. No abdominal pain or diarrhea. PHYSICAL EXAMINATION: Blood pressure 152/83 with a pulse of 74, temperature 96.6. He is 100% on room air. GENERAL DESCRIPTION: General description is a middle-aged male up in the bed in no distress. RESPIRATORY SYSTEM: Unlabored breathing. Occasional wheeze. HEART: S1, S2. Regular rate and rhythm. ABDOMEN: Soft. No tenderness. LABS: Hemoglobin is 13.6, white count 13.2, BUN of 32, creatinine 0.92. Sputum was negative. DIAGNOSTIC IMPRESSION AND PLAN: Patient admitted to hospital with shortness of breath, likely COPD exacerbation and tracheobronchitis, not behaving as pneumonia. Sputum has been negative. On Rocephin and Zithromax short course of oral Ceftin on discharge. Continue supportive care. MMODL / IJN: [id number] /
[2021-04-16 17:40] LABS: Glucose,Whole Blood 259 mg/dL (75-99)
[2021-04-16] MEDS ORDERED: INSULIN DETEMIR (LEVEMIR) 100 UNIT/ML SYR SQ SCH (21:00)
[2021-04-16] MEDS: ATORVASTATIN 80 MG TAB PO SCH (21:48)
[2021-04-16] MEDS: MELATONIN 5 MG TABLET PO SCH (21:48)
[2021-04-16 22:25] LABS: Glucose,Whole Blood 253 mg/dL (75-99)
[2021-04-17] MEDS: IPRATROPIUM-ALBUTEROL 3 ML NEB INHALATION PRN ×2 (00:17→04:27)
[2021-04-17] MEDS: methylPREDNISolone SOD SUCCI 125 MG/2 ML VIAL IV SCH ×3 (00:26→11:35)
[2021-04-17] MEDS: HYDROcodone/APAP 7.5-325MG 1 EACH TAB PO PRN ×3 (00:26→15:08)
[2021-04-17] MEDS: HYDROmorphone 1 MG/ML 1 ML SYRINGE IVP PRN ×2 (03:36→11:35)
[2021-04-17] MEDS: NICOTINE 14MG/24HR PATCH TRANSDERM SCH (06:09)
[2021-04-17 07:19] LABS: Glucose,Whole Blood 298 mg/dL (75-99)
[2021-04-17] MEDS: FORMOTEROL FUMARATE 20 MCG/2 ML NEBU INHALATION SCH (07:23)
[2021-04-17] MEDS: IPRATROPIUM-ALBUTEROL 3 ML NEB INHALATION SCH ×2 (07:23→11:51)
[2021-04-17] MEDS: BUDESONIDE 1 MG/2 ML NEBU INHALATION SCH (07:23)
[2021-04-17] MEDS: METOPROLOL TARTRATE 50 MG TAB PO SCH (08:08)
[2021-04-17] MEDS: INSULIN ASPART (NovoLOG) 100 UNIT/ML VIAL SQ SCH ×2 (08:08→13:16)
[2021-04-17] MEDS: FUROSEMIDE 10 MG/ML 4 ML VIAL IV SCH (08:09)
[2021-04-17] MEDS: metFORMIN 500 MG TAB PO SCH (08:09)
[2021-04-17] MEDS: buPROPion SR 150 MG TABLET.ER PO SCH (08:09)
[2021-04-17] MEDS: LOSARTAN 50 MG TAB PO SCH (08:09)
[2021-04-17] MEDS: GABAPENTIN 300 MG CAP PO SCH (08:10)
[2021-04-17] MEDS: APIXABAN 2.5 MG TABLET PO SCH (08:10)
[2021-04-17] MEDS: AZITHROMYCIN 500 MG TAB PO SCH (08:10)
[2021-04-17] MEDS: guaiFENesin 600 MG TABLET.ER PO SCH (08:10)
[2021-04-17] MEDS: PANTOPRAZOLE 40 MG TABLET PO SCH (08:10)
[2021-04-17 08:25] VITALS: BP 143/72; TEMP 97.8
--- NOTE | 2021-04-17 08:58 | P.PN ---
Subjective Progress Note Date: 04/16/21 This is a 60-year-old male who was recently admitted with COPD acute exacerbation also along with some anxiety and elevated lactic acid. Pulmonary and infectious disease following closely patient is maintained on IV antibiotics along with IV steroids and breathing inhalational treatments. Patient continues on oxygen at 2 L and does not normally wear oxygen in the outpatient setting. Continued on IV lasix as well and will continue with for now. Repeat am labs and may consider transitioning to oral lasix. 04/16/2021 Patient is seen in follow-up continues to be bronchospastic with wheezing noted and states he is having continued dyspnea with minimal exertion along with difficulty in sleeping. Patient continues on IV steroids along with IV antibiotics and IV Lasix daily. He should is on room air with oxygen saturations of 97 and 99 percent with pulmonary following closely. Patient instructed and encouraged to continue using incentive spirometer and increasing activity as tolerated. Patient's blood sugars were controlled and will discontinue insulin drip and continue with sliding scale along with long-acting and monitor closely. Review of systems: Constitutional: No reports of fatigue, fever, or chills Cardiovascular: No reports of chest pain or palpitations Respiratory: reports continued shortness of breath with cough and wheezing GI: No reports of nausea, vomiting, or diarrhea : No reports of dysuria or retention Neurovascular: No reports of weakness or numbness All medications have been reviewed Objective - Vital Signs Vital signs: Vital Signs Temp 96.6 F L 04/16/21 08:02 Pulse 72 04/16/21 10:25 Resp 16 04/16/21 08:02 BP 152/83 04/16/21 08:02 Pulse Ox 100 04/16/21 08:02 Intake & Output 04/15/21 04/16/21 04/16/21 18:59 06:59 18:59 Intake Total 711.625 70.542 17.6 Output Total 1400 1150 300 Balance -688.375 -1079.458 -282.4 Intake: Intake, IV Titration 45.625 70.542 17.6 Amount Insulin Regular 100 unit 45.625 70.542 17.6 In Sodium Chloride 0.9% 100 ml @ Titrate IV .Q0M [facility] Rx#:[id number] Oral 666 Output: Urine 1400 1150 300 Other: Voiding Method Toilet Toilet Urinal Urinal # Voids 1 1 - Exam Gen: This is a 60-year-old male awake, alert and oriented 3, well-developed, well-nourished, obese. HEENT: Head is atraumatic, normocephalic. Pupils equal, round. Sclerae is anicteric. NECK: Supple. No JVD. No lymphadenopathy. No thyromegaly. LUNGS: diminished breath sounds with diffuse wheezing noted throughout along with some scattered rhonchi noted in the left lower bases. No intercostal retractions. HEART: Regular rate and rhythm. No murmur. ABDOMEN: Soft. obese. Bowel sounds are present. No masses. No tenderness. EXTREMITIES: No pedal edema. No calf tenderness. NEUROLOGICAL: Patient is awake, alert and oriented x3. Cranial nerves 2 through 12 are grossly intact. - Labs CBC & Chem 7: 04/16/21 06:26 04/16/21 06:26 Labs: Abnormal Lab Results - Last 24 Hours (Table) 04/13/21 04/15/21 04/15/21 Range/Units 19:12 16:05 17:43 WBC (3.8-10.6) k/uL RBC (4.30-5.90) m/uL MCV (80.0-100.0) fL Neutrophils # (1.3-7.7) k/uL Lymphocytes # (1.0-4.8) k/uL Sodium (137-145) mmol/L BUN (9-20) mg/dL Glucose (74-99) mg/dL POC Glucose (mg/dL) 327 H 294 H 166 H (75-99) mg/dL 04/15/21 04/15/21 04/16/21 Range/Units 20:27 22:02 00:03 WBC (3.8-10.6) k/uL RBC (4.30-5.90) m/uL MCV (80.0-100.0) fL Neutrophils # (1.3-7.7) k/uL Lymphocytes # (1.0-4.8) k/uL Sodium (137-145) mmol/L BUN (9-20) mg/dL Glucose (74-99) mg/dL POC Glucose (mg/dL) 141 H 172 H 211 H (75-99) mg/dL 04/16/21 04/16/21 04/16/21 Range/Units 02:10 04:19 06:01 WBC (3.8-10.6) k/uL RBC (4.30-5.90) m/uL MCV (80.0-100.0) fL Neutrophils # (1.3-7.7) k/uL Lymphocytes # (1.0-4.8) k/uL Sodium (137-145) mmol/L BUN (9-20) mg/dL Glucose (74-99) mg/dL POC Glucose (mg/dL) 199 H 251 H 217 H (75-99) mg/dL 04/16/21 04/16/21 04/16/21 Range/Units 06:26 06:26 07:36 WBC 13.6 H (3.8-10.6) k/uL RBC 4.09 L (4.30-5.90) m/uL MCV 103.4 H (80.0-100.0) fL Neutrophils # 12.1 H (1.3-7.7) k/uL Lymphocytes # 0.9 L (1.0-4.8) k/uL Sodium 134 L (137-145) mmol/L BUN 32 H (9-20) mg/dL Glucose 207 H (74-99) mg/dL POC Glucose (mg/dL) 210 H (75-99) mg/dL 04/16/21 04/16/21 Range/Units 10:05 12:12 WBC (3.8-10.6) k/uL RBC (4.30-5.90) m/uL MCV (80.0-100.0) fL Neutrophils # (1.3-7.7) k/uL Lymphocytes # (1.0-4.8) k/uL Sodium (137-145) mmol/L BUN (9-20) mg/dL Glucose (74-99) mg/dL POC Glucose (mg/dL) 273 H 249 H (75-99) mg/dL Microbiology - Last 24 Hours (Table) 04/13/21 20:28 Gram Stain - Final Sputum Sputum Culture - Final 04/12/21 Unknown Blood Culture - Preliminary Blood No Growth after 72 hours Assessment and Plan Assessment: Chronic obstructive pulmonary disease, acute exacerbation with acute purulent tracheobronchitis with failure of outpatient treatment with possible sepsis, present on admission Elevated lactic acid Severe anxiety Diffuse tremors Diabetes mellitus type 2 uncontrolled with hyperglycemia Increased MCV history of chronic obstructive pulmonary disease history of deep vein thrombosis Hypertension history of degenerative joint disease history of nicotine dependence history of THC Obesity with a body mass index of 41.1 Bilateral leg edema for evaluation Plan: Recommend to continue with current medications and will continue to monitor closely. Blood count is 13.6, hemoglobin is stable at 13.7, sodium slightly improved at 134 with a potassium of 4.7 and current creatinine is 0.92. Blood sugars slightly more controlled and will discontinue insulin drip and continue with sliding scale along with long acting and continue to monitor Accu-Cheks before meals and at bedtime. Hemoglobin A1c is 8.4 and will continue with oral antidiabetic agents and a prednisone taper on discharge and instructed the patient to follow-up with primary care provider in regards to changing medications or possibly initiating insulin in the outpatient setting. Continue with breathing inhalational treatments and IV steroids. Pulmonary and infectious disease following. Encouraged increased activity and a is maintaining oxygen saturations in the mid 90s on room air. Sputum culture showing normal eugene with no staph aureus or Pseudomonas noted. Will continue with short course of oral antibiotics on discharge to complete the course. Chest x-ray shows some minimal patchy basilar densities present with no evidence of pneumothorax and probable basilar atelectasis and will continue to encourage incentive spirometer. Due to multiple complex medical issues, prognosis is guarded. Possible discharge in 24 hours.
[2021-04-17 11:53] VITALS: RESP 20
[2021-04-17 12:02] VITALS: PULSE 78
--- NOTE | 2021-04-17 12:35 | P.PN ---
Subjective Progress Note Date: 04/17/21 Principal diagnosis: COPD exacerbation 60-year-old patient, known history of COPD, coming in with worsening shortness of breath. He tells that his breathing has been poor since he got COVID 19 in spring. Nevertheless, over the infection, he was not hospitalized and he was essentially treated at home. He is a chronic smoker and smokes about half pack of cigarettes a day. Prior to that used to smoke more. Has a nebulizer at home he does DuoNeb nebulized treatments around the clock has been doing his nebulized treatments more frequently without any significant help. He has increased dyspnea, cough, chest tightness, wheezing. He is known to have diabetes mellitus. He has neuropathy and peripheral vascular disease. 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 No previous history of pulmonary embolism. No coronary artery disease. No angina. No C of CHF and his last echocardiogram from 2017 was essentially within normal limits. No pleurisy. No hemoptysis. He is currently on oxygen at 2 L per minute nasal cannula. He is diabetic and other comorbidities include hypertension and hyp erlipidemia. Stroke. No history of any congestion heart failure. The first hospitalization for any COPD related complications. He was in the emergency department back in the July 2020 where he had COPD exacerbation he was given a round of steroids and he was discharged home. On today's evaluation of a 2020, the patient denies having any major improvement in his breathing. He still bronchospastic and wheezy and short of breath. The lactic acid level is improving is currently down to 3.0. Rest of the blood work done yesterday was noted. WBC dose of 11 with a hemoglobin of 14. Normal electrolytes. No other new complaints otherwise for now. He remains on bronchodilators. He remains on Rocephin and Zithromax in addition to DuoNeb nebulized treatments and IV Solu-Medrol. On 04/15/2021 patient seen in follow-up on medical surgical floor, patient is resting comfortably in bed, he still has chest congestion, occasional cough, some scattered wheezing. Overall he states he is feeling better, he is currently on 2 L of oxygen pulse ox 93%, he is on a daily dose of Lasix, he is in -1.3 and the fluid balance over the last 24 hours, he remains on high-dose steroids and nebulized bronchodilators, he remains on azithromycin and Rocephin. His had no fever or chills overnight. Procalcitonin level came back negative at 0.04. COVID 19 PCR was negative. No Chest discomfort. The patient is seen today 04/16/2021 in follow-up on the regular medical floor. He is currently sitting up in a chair at the bedside. Awake and alert in no acute distress. Still with some dyspnea on exertion. There was some shortness of breath and wheezing. Loose nonproductive cough. Chest x-ray shows some basilar atelectasis otherwise no acute process. Sputum culture revealed no growth. Blood cultures reveal no growth. White count 13.6. Hemoglobin 13.7. Sodium 134. Potassium 4.7. Creatinine 0.92. He remains on DuoNeb inhalations, Pulmicort and Perforomist inhalations, IV Solu-Medrol. Empiric antibiotics in the form of azithromycin and ceftriaxone. Remains on IV diuretics. NicoDerm patch in place. Anticoagulated with Eliquis. The patient is seen today 04/17/2021 in follow-up on the regular medical floor. Currently sitting up at the bedside. Awake and alert in no acute distress. Breathing is improved. Nearly back to his baseline. Maintaining good O2 saturations in the 90s on room air. He's been afebrile. Hemodynamically stable. Blood culture revealed no growth. Sputum culture revealed no growth. Glucose 298. He remains on DuoNeb inhalations, Pulmicort and Perforomist inhalations, IV Solu-Medrol. Empiric antibiotics in the form of azithromycin and ceftriaxone. Remains on IV diuretics. NicoDerm patch in place. Anticoagulated with Eliquis. Objective - Vital Signs Vital signs: Vital Signs Temp 97.8 F 04/17/21 07:00 Pulse 78 04/17/21 12:01 Resp 20 04/17/21 12:01 BP 143/72 04/17/21 07:00 Pulse Ox 95 04/17/21 07:23 Intake & Output 04/16/21 04/17/21 04/17/21 18:59 06:59 18:59 Intake Total 17.6 1000 Output Total 550 500 Balance -532.4 500 Intake: Intake, IV Titration 17.6 Amount Insulin Regular 100 unit 17.6 In Sodium Chloride 0.9% 100 ml @ Titrate IV .Q0M [facility] Rx#:[id number] Oral 1000 Output: Urine 550 500 Other: Voiding Method Toilet Toilet Urinal Urinal # Voids 1 2 # Bowel Movements 1 - Exam GENERAL EXAM: Alert, pleasant 60-year-old gentleman, on room air, comfortable in no apparent distress. HEAD: Normocephalic. EYES: Normal reaction of pupils, equal size. NOSE: Clear with pink turbinates. THROAT: No erythema or exudates. NECK: No masses, no JVD. CHEST: No chest wall deformity. LUNGS: Equal air entry with bilateral wheeze, few scattered rhonchi. CVS: S1 and S2 normal with no audible murmur, regular rhythm. ABDOMEN: No hepatosplenomegaly, normal bowel sounds, no guarding or rigidity. SPINE: No scoliosis or deformity SKIN: No rashes CENTRAL NERVOUS SYSTEM: No focal deficits, tone is normal in all 4 extremities. EXTREMITIES: There is no peripheral edema. No clubbing, no cyanosis. Peripheral pulses are intact. - Labs CBC & Chem 7: 04/16/21 06:26 04/16/21 06:26 Labs: Abnormal Lab Results - Last 24 Hours (Table) 04/16/21 04/16/21 04/17/21 Range/Units 17:40 22:23 07:18 POC Glucose (mg/dL) 259 H 253 H 298 H (75-99) mg/dL Microbiology - Last 24 Hours (Table) 04/12/21 Unknown Blood Culture - Preliminary Blood No Growth after 96 hours 04/13/21 20:28 Gram Stain - Final Sputum Sputum Culture - Final Assessment and Plan Assessment: 1 acute COPD exacerbation with secondary shortness of breath. Slow to progress. 2 acute hypoxic respiratory failure currently on oxygen 2 L per minute nasal cannula, secondary to COPD exacerbation. 3 known history of smoking 4 diabetes mellitus type 2 5 peripheral vascular disease 6 peripheral neuropathy 7 hypertension 8 hyperlipidemia 9 previous history of DVT of the left lower extremity and the patient has been maintained on long-term anticoagulation with Eliquis Plan: The patient was seen and evaluated by Dr. Perry Cleared for discharge from pulmonary standpoint Again educated regarding the importance of complete smoking cessation Complete a prednisone taper Continue bronchodilators Follow-up in our office in 1-2 weeks' time I, the cosigning physician, performed a history & physical examination of the patient. Lungs sounds with bilateral wheeze, few scattered rhonchi Maintaining good O2 saturations in the 90s on room air. I discussed the assessment and plan of care with my nurse practitioner, Eildia Irwin. I attest to the above note as dictated by her.
[2021-04-17 12:57] LABS: Glucose,Whole Blood 201 mg/dL (75-99)
--- NOTE | 2021-04-17 16:02 | PN ---
PROGRESS NOTE DATE OF SERVICE: 04/17/2021 REASON FOR FOLLOWUP: Tracheobronchitis/pneumonia. INTERVAL HISTORY: The patient is afebrile. The patient is feeling better. Currently breathing comfortably on room air. The patient denies having any chest pain. He did have occasional cough. No abdominal pain or diarrhea. PHYSICAL EXAMINATION: Blood pressure 143/72 with a pulse of 74, temperature 97.8. He is 94% on room air. GENERAL DESCRIPTION: General description is a middle-aged male up in the room in no distress. RESPIRATORY SYSTEM: Unlabored breathing. Occasional wheeze. HEART: S1, S2. Regular rate and rhythm. ABDOMEN: Soft. No tenderness. LABS: No new labs have been obtained today. Sputum has been negative. Blood culture has been negative. DIAGNOSTIC IMPRESSION AND PLAN: Patient admitted to hospital with shortness of breath and cough concerning for chronic obstructive pulmonary disease exacerbation and tracheobronchitis pneumonia. The patient received adequate antibiotic therapy. Sputum culture has been negative. Recommend no antibiotic on discharge. MMODL / IJN: [id number] /
== END 2021-04-17 15:31 | disposition home or self-care (01) | DRG 871 ==
LOC: EC 13:42 → 6NMEDSUR 17:28 → OBSVTOIN 04-15 21:59
PROVIDERS: ADMIT Hospitalist; ATTEND Hospitalist
DX: A41.9 Sepsis, unspecified organism (principal); J96.01 Acute respiratory failure with hypoxia; J44.1 Chronic obstructive pulmonary disease with (acute) exacerbation; Z68.41 Body mass index [BMI] 40.0-44.9, adult; J98.11 Atelectasis; J44.0 Chronic obstructive pulmonary disease with (acute) lower respiratory infection; E11.51 Type 2 diabetes mellitus with diabetic peripheral angiopathy without gangrene; E11.42 Type 2 diabetes mellitus with diabetic polyneuropathy; E11.65 Type 2 diabetes mellitus with hyperglycemia; J20.9 Acute bronchitis, unspecified; Z89.422 Acquired absence of other left toe(s); E66.9 Obesity, unspecified; Z89.421 Acquired absence of other right toe(s); E78.5 Hyperlipidemia, unspecified; I10 Essential (primary) hypertension; I45.10 Unspecified right bundle-branch block; F41.9 Anxiety disorder, unspecified; F32.9 Major depressive disorder, single episode, unspecified; M19.90 Unspecified osteoarthritis, unspecified site; F17.210 Nicotine dependence, cigarettes, uncomplicated; Z71.6 Tobacco abuse counseling; Z20.822 Contact with and (suspected) exposure to COVID-19; Z79.01 Long term (current) use of anticoagulants; Z79.84 Long term (current) use of oral hypoglycemic drugs; Z79.899 Other long term (current) drug therapy; Z86.718 Personal history of other venous thrombosis and embolism; Z87.19 Personal history of other diseases of the digestive system; Z98.818 Other dental procedure status; Z98.890 Other specified postprocedural states; Z88.0 Allergy status to penicillin; Z88.6 Allergy status to analgesic agent; Z91.030 Bee allergy status; Z91.02 Food additives allergy status
CPT/HCPCS: 36415; 71045; 71046; 80048; 80053; 83036; 83605; 84145; 84484; 85025; 85379; 85610; 85730; 86140; 87040; 87070; 87205; 87635; 93005; 93306; 94640; 94760; 96361; 96374; 96375; 99285

== ENCOUNTER → 2022-11-26 | Outpatient (CLI) | payer OTHER ==
--- NOTE | 2022-11-26 17:04 | CTL ---
EXAMINATION TYPE: CT Low Dose Lung DATE OF EXAM ORDERED: 11/26/2022 HISTORY: Tobacco use. Lung cancer screening CT DLP: [address] CTDI: 2.75 mGy Automated exposure control for dose reduction was used. SCREENING VISIT: Initial COMPARISON: 05/15/2020 TECHNIQUE: Low dose computed tomography scan was performed through the chest at 1 mm thick sections a nd reconstructed images in the coronal plane at [address] DIAGNOSTIC QUALITY: Limited, but interpretable FINDINGS: LUNG NODULES: None. Limited exam small nodules may not be appreciated. LUNGS: COPD: Severity: None Fibrosis: Severity: None Lymph nodes: None Other findings: None RIGHT PLEURAL SPACE: Effusion: None Calcification: None Thickening: None Pneumothorax: None LEFT PLEURAL SPACE: Effusion: None Calcification: None Thickening: None Pneumothorax: None HEART: Heart Size: Normal Coronary calcification: None Pericardial effusion: None OTHER FINDINGS: Upper abdomen: Normal Bony thorax: Normal Supraclavicular region: Normal Other: Ascending thoracic aorta at the level the main pulmonary artery measures 3.6 cm. The main pul monary artery at the bifurcation measures 2.5 cm. IMPRESSION: 1. No suspicious changes to suggest primary or metastatic neoplasm. 2. Exam is very limited. FOLLOW UP CT CHEST RECOMMENDATION: Low-dose CT chest [address] LUNG RAD: Lung-Rad 1 Negative
== END | disposition home or self-care (01) ==
LOC: RADCTMAIN 13:15
PROVIDERS: ATTEND Family Medicine
DX: Z12.2 Encounter for screening for malignant neoplasm of respiratory organs (principal); F17.210 Nicotine dependence, cigarettes, uncomplicated
CPT/HCPCS: 71271

== ENCOUNTER 2023-05-05 22:19 | Inpatient (IN) | payer OTHER ==
[2023-05-05] MEDS ORDERED: HYDROmorphone 1 MG/ML 1 ML SYRINGE IVP STA (22:37)
[2023-05-05] MEDS ORDERED: KETOROLAC 15 MG/ML 1 ML VIAL IVP STA (22:37)
--- NOTE | 2023-05-05 22:46 | ED ---
Extremity Problem HPI - General Chief complaint: Extremity Injury, Lower Stated complaint: FOOT INFECTION Time Seen by Provider: 05/05/23 22:31 Source: patient, EMS, RN notes reviewed Mode of arrival: EMS Limitations: no limitations - History of Present Illness Initial comments: This is a 62-year-old male who presents to the emergency department for concerns of a left foot infection. Patient is a diabetic and has struggled with diabetic ulcers and wounds for many years, some of which have resulted in toe amputations. States that he has been dealing with this wound on the left foot on and off for 3 years, but it has started to get substantially worse over the last couple of days. He is unable to walk due to the pain. Additionally, states that he put a sock on it yesterday that became stuck within the drainage, and he has been unable to get this off. Denies being on any antibiotics recently. Denies any fevers, chills, sore throat, cough, dyspnea, chest pain, palpitations, abdominal pain, nausea, vomiting, diarrhea, back pain, or headaches. MD Complaint: extremity pain - Related Data Home Medications Medication Instructions Recorded Confirmed Acetaminophen Tab [Tylenol] 500 mg PO Q6H PRN 04/12/21 04/12/21 Apixaban [Eliquis] 2.5 mg PO BID 04/12/21 04/12/21 Atorvastatin Calcium [Lipitor] 80 mg PO HS 04/12/21 04/12/21 Ergocalciferol (Vitamin D2) 1,250 mcg PO MO 04/12/21 04/12/21 [Drisdol (50,000 Iu)] Gabapentin 600 mg PO TID 04/12/21 04/12/21 Ipratropium-Albuterol Nebulize 3 ml INHALATION RT-QID PRN 04/12/21 04/12/21 [Duoneb 0.5 mg-3 mg/3 ml Soln] Losartan Potassium [Cozaar] 50 mg PO DAILY 04/12/21 04/12/21 Metoprolol Tartrate [Lopressor] 50 mg PO DAILY 04/12/21 04/12/21 buPROPion SR [Wellbutrin SR] 150 mg PO BID 04/12/21 04/12/21 metFORMIN HCL [Glucophage] 1,000 mg PO BID 04/12/21 04/12/21 Previous Rx's Medication Instructions Recorded Albuterol Inhaler [Ventolin Hfa 2 puff INHALATION RT-QID PRN #1 08/13/20 Inhaler] inhaler Furosemide [Lasix] 20 mg PO DAILY 30 Days #30 tab 04/17/21 HYDROcodone/APAP 7.5-325MG [[place] 1 each PO Q6HR PRN #10 tab 04/17/21 7.5-325] Ipratropium-Albuterol Nebulize 3 ml INHALATION RT-QID #90 ml 04/17/21 [Duoneb 0.5 mg-3 mg/3 ml Soln] Nicotine 14Mg/24Hr Patch [Habitrol] 1 patch TRANSDERM DAILY #20 patch 04/17/21 cefUROXime axetiL [Ceftin] 500 mg PO BID 3 Days #6 tab 04/17/21 guaiFENesin [Mucinex] 1,200 mg PO Q12HR #20 tablet 04/17/21 predniSONE 10 mg PO DIRECTED #30 tab 04/17/21 Allergies Allergy/AdvReac Type Severity Reaction Status Date / Time acetaminophen [From Fioricet] Allergy Anaphylaxis Verified 05/05/23 22:30 butalbital [From Fioricet] Allergy Anaphylaxis Verified 05/05/23 22:30 caffeine [From Fioricet] Allergy Anaphylaxis Verified 05/05/23 22:30 Penicillins Allergy Rash/Hives Verified 05/05/23 22:30 venom-honey bee Allergy Anaphylaxis Verified 05/05/23 22:30 [bee venom (honey bee)] Review of Systems ROS Statement: Those systems with pertinent positive or pertinent negative responses have been documented in the HPI. ROS Other: All systems not noted in ROS Statement are negative. Past Medical History Past Medical History: COPD, Diabetes Mellitus, Deep Vein Thrombosis (DVT), Hyperlipidemia, Hypertension Additional Past Medical History / Comment(s): Obesity, PVD, COPD, HTN, DM type 2, Depression, obesity, hyperlipidemia History of Any Multi-Drug Resistant Organisms: None Reported Past Surgical History: Hernia Repair, Orthopedic Surgery Additional Past Surgical History / Comment(s): recent removal of all upper teeth, [place] toe amputation Past Psychological History: No Psychological Hx Reported Smoking Status: Current every day smoker Past Alcohol Use History: None Reported Past Drug Use History: Marijuana General Exam Limitations: no limitations General appearance: alert, in no apparent distress Head exam: Present: atraumatic, normocephalic, normal inspection Respiratory exam: Present: normal lung sounds bilaterally. Absent: respiratory distress, wheezes, rales, rhonchi, stridor Cardiovascular Exam: Present: regular rate, normal rhythm, normal heart sounds. Absent: systolic murmur, diastolic murmur, rubs, gallop, clicks Extremities exam: Present: other (Erythema and tenderness beginning in the center of the left foot and extending distally. There is a large ulceration around the great toe covered in white material.) Neurological exam: Present: alert, oriented X3, CN II-XII intact Psychiatric exam: Present: normal affect, normal mood Course Vital Signs 05/05/23 05/06/23 05/06/23 22:23 01:30 02:00 Temperature 100.2 F H 98.6 F Pulse Rate 111 H 94 96 Respiratory 24 22 Rate Blood Pressure 162/90 168/95 O2 Sat by Pulse 95 97 Oximetry 05/06/23 05/06/23 02:10 03:29 Temperature Pulse Rate 92 90 Respiratory 22 Rate Blood Pressure 146/74 O2 Sat by Pulse 99 Oximetry Medical Decision Making - Medical Decision Making This is a 62-year-old male who presents to the emergency department for a left foot infection. Was pt. sent in by a medical professional or institution? @ -No Did you speak to anyone other than the patient for history? @ -No Did you review nursing and triage notes? @ -Yes, and I agree, it is accurate with regards to the patient's symptoms. Were old charts reviewed? @ -No Differential Diagnosis? @ -Differential Foot Pain/Infection: Cellulitis, osteomyelitis, gout, necrotizing fasciitis, this is not meant to be an all-inclusive list. EKG interpreted by me (3pts min.)? @ -Not obtained X-rays interpreted by me (1pt min.)? @ -X-ray of the left foot obtained. My interpretation identifies no evidence of subcutaneous gas formation. CT interpreted by me (1pt min.)? @ -Not obtained U/S interpreted by me (1pt. min.)? @ -Not obtained What testing was considered but not performed? (CT, X-rays, U/S, labs)? Why? @ -None What meds were considered but not given? Why? @ -None Did you discuss the management of the patient with other professionals? @ -Yes, Sugar Asencio with [facility], who accepts the patient for admission. Did you reconcile home meds? @ -No Was smoking cessation discussed for >3mins.? @ -No Was critical care preformed (if so, how long)? @ -No Were there social determinants of health that impacted care today? How? (Ronny elessness, low income, unemployed, alcoholism, drug addiction, transportation, low edu. Level, literacy, decrease access to med. care, care home, rehab)? @ -No Was there de-escalation of care discussed even if they declined? (Discuss DNR or withdrawal of care, Hospice)? @ -No What co-morbidities impacted this encounter? (DM, HTN, Smoking, COPD, CAD, Cancer, CVA, Hep., AIDS, mental health diagnosis, sleep apnea, morbid obesity)? @ -DM, HLD, HTN Was patient admitted / discharged? @ -Admitted. Patient was febrile and tachycardic on arrival. Lab work obtained revealing mild leukocytosis. Lactic acid elevated at 2.7. ESR mildly elevated at 16. X-ray of the left foot obtained revealing generalized soft tissue swelling without other acute process. His wound did have a sock stuck to it, and after soaking it in saline we were able to remove it. The wound itself had a very foul odor and presentation was concerning for wet gangrene. Patient was also in significant distress from the wound. Patient admitted to medicine for cellulitis versus wet gangrene. Consults placed for infectious disease and vascular surgery. He was started on vancomycin and cefepime. Blood and wound cultures obtained. Undiagnosed new problem with uncertain prognosis? @ -None Drug Therapy requiring intensive monitoring for toxicity (Heparin, Nitro, Insulin, Cardizem)? @ -None Were any procedures done? @ -None Diagnosis/symptom? @ -Wet gangrene Acute, or Chronic, or Acute on Chronic? @ -Acute Uncomplicated (without systemic symptoms) or Complicated (systemic symptoms)? @ -Uncomplicated Side effects of treatment? @ -None Exacerbation, Progression, or Severe Exacerbation] @ -Not applicable Poses a threat to life or bodily function? @ -Yes This case was discussed in detail with the attending ED physician, Dr. Allred. Presentation, findings, and treatment plan discussed in detail as well. - Lab Data Result diagrams: 05/05/23 22:40 05/05/23 22:40 Lab Results 05/05/23 05/05/23 05/05/23 Range/Units 22:40 22:40 22:40 WBC 11.7 H (3.8-10.6) k/uL RBC 4.63 (4.30-5.90) m/uL Hgb 15.1 (13.0-17.5) gm/dL Hct 44.6 (39.0-53.0) % MCV 96.4 (80.0-100.0) fL MCH 32.6 (25.0-35.0) pg MCHC 33.9 (31.0-37.0) g/dL RDW 12.1 (11.5-15.5) % Plt Count 321 (150-450) k/uL MPV 7.4 Neutrophils % 64 % Lymphocytes % 25 % Monocytes % 5 % Eosinophils % 3 % Basophils % 0 % Neutrophils # 7.5 (1.3-7.7) k/uL Lymphocytes # 2.9 (1.0-4.8) k/uL Monocytes # 0.6 (0-1.0) k/uL Eosinophils # 0.4 (0-0.7) k/uL Basophils # 0.0 (0-0.2) k/uL ESR 16 H (0-15) mm/hr Sodium 138 (137-145) mmol/L Potassium 4.5 (3.5-5.1) mmol/L Chloride 106 (98-107) mmol/L Carbon Dioxide 19 L (22-30) mmol/L Anion Gap 13 mmol/L BUN 13 (9-20) mg/dL Creatinine 0.78 (0.66-1.25) mg/dL Est GFR (CKD-EPI)AfAm >90 (>60 ml/min/1.73 sqM) Est GFR (CKD-EPI)NonAf >90 (>60 ml/min/1.73 sqM) Glucose 154 H (74-99) mg/dL Lactic Ac Sepsis Rflx Plasma Lactic Acid Ajit 2.7 H* (0.7-2.0) mmol/L Calcium 9.9 (8.4-10.2) mg/dL Total Bilirubin 0.9 (0.2-1.3) mg/dL AST 30 (17-59) U/L ALT 21 (4-49) U/L Alkaline Phosphatase 80 (38-126) U/L C-Reactive Protein 0.6 (<1.0) mg/dL Total Protein 8.0 (6.3-8.2) g/dL Albumin 4.5 (3.5-5.0) g/dL 05/05/23 Range/Units 23:29 WBC (3.8-10.6) k/uL RBC (4.30-5.90) m/uL Hgb (13.0-17.5) gm/dL Hct (39.0-53.0) % MCV (80.0-100.0) fL MCH (25.0-35.0) pg MCHC (31.0-37.0) g/dL RDW (11.5-15.5) % Plt Count (150-450) k/uL MPV Neutrophils % % Lymphocytes % % Monocytes % % Eosinophils % % Basophils % % Neutrophils # (1.3-7.7) k/uL Lymphocytes # (1.0-4.8) k/uL Monocytes # (0-1.0) k/uL Eosinophils # (0-0.7) k/uL Basophils # (0-0.2) k/uL ESR (0-15) mm/hr Sodium (137-145) mmol/L Potassium (3.5-5.1) mmol/L Chloride (98-107) mmol/L Carbon Dioxide (22-30) mmol/L Anion Gap mmol/L BUN (9-20) mg/dL Creatinine (0.66-1.25) mg/dL Est GFR (CKD-EPI)AfAm (>60 ml/min/1.73 sqM) Est GFR (CKD-EPI)NonAf (>60 ml/min/1.73 sqM) Glucose (74-99) mg/dL Lactic Ac Sepsis Rflx Y Plasma Lactic Acid Ajit (0.7-2.0) mmol/L Calcium (8.4-10.2) mg/dL Total Bilirubin (0.2-1.3) mg/dL AST (17-59) U/L ALT (4-49) U/L Alkaline Phosphatase (38-126) U/L C-Reactive Protein (<1.0) mg/dL Total Protein (6.3-8.2) g/dL Albumin (3.5-5.0) g/dL - Radiology Data Radiology results: report reviewed, image reviewed Disposition 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
[2023-05-05 23:02] LABS: Basophils % (A) 0 %; Eosinophils # (A) 0.4 k/uL (0-0.7); Eosinophils % (A) 3 %; HCT 44.6 % (39.0-53.0); HGB 15.1 gm/dL (13.0-17.5); Lymphocytes # (A) 2.9 k/uL (1.0-4.8); Lymphocytes % (A) 25 %; MCH 32.6 pg (25.0-35.0); MCHC 33.9 g/dL (31.0-37.0); MCV 96.4 fL (80.0-100.0); Mean Platelet Volume 7.4; Monocytes # (A) 0.6 k/uL (0-1.0); Monocytes % (A) 5 %; Neutrophils # (A) 7.5 k/uL (1.3-7.7); Neutrophils % (A) 64 %; Platelet Count 321 k/uL (150-450); RBC 4.63 m/uL (4.30-5.90); RDW 12.1 % (11.5-15.5); WBC 11.7 k/uL (3.8-10.6)
[2023-05-05 23:14] LABS: ALT 21 U/L (4-49); African American GFR (CKD) >90 (>60 ml/min/1.73 sqM); Anion Gap 13 mmol/L; Blood Urea Nitrogen 13 mg/dL (9-20); C Reactive Protein 0.6 mg/dL (<1.0); Calcium 9.9 mg/dL (8.4-10.2); Carbon Dioxide 19 mmol/L (22-30); Chloride 106 mmol/L (98-107); Glucose 154 mg/dL (74-99); Non-African American GFR(CKD) >90 (>60 ml/min/1.73 sqM); Sodium 138 mmol/L (137-145); Total Bilirubin 0.9 mg/dL (0.2-1.3)
[2023-05-05 23:27] LABS: Potassium 4.5 mmol/L (3.5-5.1)
[2023-05-05 23:28] LABS: AST 30 U/L (17-59); Albumin 4.5 g/dL (3.5-5.0); Alkaline Phosphatase 80 U/L (38-126)
[2023-05-05] MEDS ORDERED: SODIUM CHLORIDE 0.9% 1,000 ML IV STA (23:42)
--- NOTE | 2023-05-05 23:43 | XR ---
EXAM: XR Left Foot Complete, 3 or More Views CLINICAL HISTORY: ITS.REASON XR Reason: Infection TECHNIQUE: Frontal, lateral and oblique views of the left foot. COMPARISON: No relevant prior studies available. FINDINGS: Bones/joints: If there is concern for osteomyelitis, MRI recommended. 7 mm heel spur. Amputation of the third and fourth rays at the proximal phalanxes. No acute fracture or dislocation. Soft tissues: Generalized soft tissue swelling. No radiopaque foreign body. IMPRESSION: Amputation of the third and fourth rays at the proximal phalanxes. If there is concern for osteomyelitis, MRI recommended. Evaluation limited given the patient's overlying bandages.
[2023-05-05 23:59] LABS: Erythrocyte Sedimentation Rate 16 mm/hr (0-15)
[2023-05-06] MEDS ORDERED: HYDROmorphone 1 MG/ML 1 ML SYRINGE IVP STA (00:21)
[2023-05-06] MEDS ORDERED: HYDROmorphone 0.5 MG/0.5 ML SYRINGE IVP PRN (01:06)
[2023-05-06] MEDS ORDERED: NALOXONE 0.4 MG/ML 1 ML VIAL IV PRN (01:06)
[2023-05-06] MEDS ORDERED: VANCOMYCIN IV PER PHARMACY 1 EACH MISC MISCELLANE PRN (01:08)
[2023-05-06] MEDS ORDERED: SODIUM CHLORIDE 0.9% 1,000 ML IV STA (01:10)
[2023-05-06] MEDS: CEFEPIME 2 GM in SODIUM CHLORIDE 0.9% 100 ML IVPB SCH ×3 (01:27→17:57)
[2023-05-06] MEDS ORDERED: IPRATROPIUM-ALBUTEROL 3 ML NEB INHALATION STA (01:46)
[2023-05-06] MEDS ORDERED: VANCOMYCIN 2,000 MG in SODIUM CHLORIDE 0.9% 500 ML 500 ML IVPB ONE (02:00)
[2023-05-06] MEDS: HYDROmorphone 1 MG/ML 1 ML SYRINGE IVP PRN ×7 (03:30→21:50)
[2023-05-06] MEDS ORDERED: IPRATROPIUM-ALBUTEROL 3 ML NEB INHALATION PRN (08:43)
[2023-05-06] MEDS: KETOROLAC 15 MG/ML 1 ML VIAL IVP PRN (08:58)
[2023-05-06] MEDS ORDERED: ALBUTEROL NEBULIZED 2.5 MG/3 ML INHALATION PRN (09:56)
[2023-05-06] MEDS ORDERED: DEXTROSE 50% SYRINGE 50 ML IVP PRN ×2 (09:57)
[2023-05-06] MEDS: LOSARTAN 50 MG TAB PO SCH (10:54)
[2023-05-06] MEDS: IPRATROPIUM-ALBUTEROL 3 ML NEB INHALATION SCH ×3 (11:42→21:00)
[2023-05-06 12:48] LABS: Glucose,Whole Blood 170 mg/dL (70-110)
[2023-05-06] MEDS: INSULIN ASPART (NovoLOG) 100 UNIT/ML VIAL SQ SCH ×3 (12:49→21:07)
[2023-05-06] MEDS: GABAPENTIN 300 MG CAP PO SCH ×2 (12:56→21:00)
[2023-05-06] MEDS: VANCOMYCIN 2,000 MG in SODIUM CHLORIDE 0.9% 500 ML 500 ML IVPB SCH (16:15)
[2023-05-06] MEDS: HYDROcodone/APAP 7.5-325MG 1 EACH TAB PO PRN ×2 (16:38→21:00)
[2023-05-06 17:53] LABS: Glucose,Whole Blood 135 mg/dL (70-110)
[2023-05-06 20:31] LABS: Glucose,Whole Blood 121 mg/dL (70-110)
[2023-05-06] MEDS: ATORVASTATIN 80 MG TAB PO SCH (21:01)
[2023-05-06] MEDS: ONDANSETRON 4 MG/2 ML VIAL IVP PRN (21:01)
[2023-05-06] MEDS: METOPROLOL TARTRATE 50 MG TAB PO SCH (21:01)
[2023-05-06] MEDS: buPROPion SR 150 MG TABLET.ER PO SCH (21:16)
--- NOTE | 2023-05-06 21:16 | P.CONS ---
History of Present Illness - Reason for Consult Consult date: 05/06/23 - History of Present Illness Patient is a 62-year-old male with a past medical history significant for diabetes mellitus hypertension hyperlipidemia DVT COPD patient presenting to the hospital with worsening pain swelling redness to the left foot in this patient who did have wound to the left foot for many years, now presenting to the hospital with a worsening pain swelling drainage that has been getting worse for the last few days patient described the pain to be excruciating almost 10 out of 10 severe with touching of his wound and did have some drainage with these symptoms the patient has been evaluated on presentation to the hospital patient did have a fever 100.2 degrees for overnight white count of 11.7 creatinine was 0.7 and lactic acid 2.7 enzymes are normal local cultures obtained currently pending patient did have x-ray of the foot amputation of the third and fourth rays at the proximal phalanx this did not mention any bony changes patient was started on cefepime and vancomycin infectious disease was consulted for further management of antibiotic therapy Past Medical History Past Medical History: COPD, Diabetes Mellitus, Deep Vein Thrombosis (DVT), Hyperlipidemia, Hypertension Additional Past Medical History / Comment(s): PVD, COPD, HTN, DM type 2, Depression, obesity, hyperlipidemia History of Any Multi-Drug Resistant Organisms: None Reported Past Surgical History: Hernia Repair, Orthopedic Surgery Additional Past Surgical History / Comment(s): removal of all teeth , 3rd and 4th toes left foot amputation, umbilical hernia surgery, laser surgery for glaucoma Additional Past Anesthesia/Blood Transfusion Reaction / Comm: no previous blood transfusions Past Psychological History: No Psychological Hx Reported Smoking Status: Current every day smoker Past Alcohol Use History: None Reported Past Drug Use History: Marijuana - Past Family History Father Family Medical History: Chest Pain / Angina, Congestive Heart Failure (CHF), Diabetes Mellitus, Hypertension Mother Family Medical History: COPD, Deep Vein Thrombosis (DVT), Vascular Disorder Medications and Allergies Home Medications Medication Instructions Recorded Confirmed Type Albuterol Inhaler [Ventolin Hfa 2 puff INHALATION RT-QID PRN #1 08/13/20 05/06/23 Rx Inhaler] inhaler Apixaban [Eliquis] 2.5 mg PO BID 04/12/21 05/06/23 History Atorvastatin Calcium [Lipitor] 80 mg PO HS 04/12/21 05/06/23 History Ergocalciferol (Vitamin D2) 1,250 mcg PO Q7D 04/12/21 05/06/23 History [Drisdol (50,000 Iu)] Gabapentin 600 mg PO TID 04/12/21 05/06/23 History Ipratropium-Albuterol Nebulize 3 ml INHALATION RT-QID PRN 04/12/21 05/06/23 History [Duoneb 0.5 mg-3 mg/3 ml Soln] Metoprolol Tartrate [Lopressor] 50 mg PO BID 04/12/21 05/06/23 History buPROPion SR [Wellbutrin SR] 150 mg PO BID 04/12/21 05/06/23 History metFORMIN HCL [Glucophage] 1,000 mg PO BID-W/MEALS 04/12/21 05/06/23 History DULoxetine HCL [Cymbalta] 30 mg PO DAILY 05/06/23 05/06/23 History Dulaglutide [Trulicity] 4.5 mg SQ Q7D 05/06/23 05/06/23 History EPINEPHrine (Auto Inject) [Epipen] 0.3 mg IM ONCE PRN 05/06/23 05/06/23 History Empagliflozin [Jardiance] 10 mg PO DAILY 05/06/23 05/06/23 History HYDROcodone/APAP 7.5-325MG [[place] 1 tab PO TID PRN 05/06/23 05/06/23 History 7.5-325] Loratadine [Claritin] 10 mg PO DAILY 05/06/23 05/06/23 History Losartan Potassium [Cozaar] 100 mg PO DAILY 05/06/23 05/06/23 History tiZANidine [Zanaflex] 4 mg PO TID PRN 05/06/23 05/06/23 History Allergies Allergy/AdvReac Type Severity Reaction Status Date / Time acetaminophen [From Fioricet] Allergy Anaphylaxis Verified 05/06/23 06:44 butalbital [From Fioricet] Allergy Anaphylaxis Verified 05/06/23 06:44 caffeine [From Fioricet] Allergy Anaphylaxis Verified 05/06/23 06:44 Penicillins Allergy Rash/Hives Verified 05/06/23 06:44 venom-honey bee Allergy Anaphylaxis Verified 05/06/23 06:44 [bee venom (honey bee)] Physical Exam Vitals: Vital Signs Temp Pulse Pulse Resp BP BP Pulse Ox 05/06/23 09:18 98.8 F 80 20 164/78 97 05/06/23 09:12 96 05/06/23 09:04 95 05/06/23 06:00 76 22 153/91 98 05/06/23 05:00 82 20 132/64 97 05/06/23 03:29 90 22 146/74 99 05/06/23 02:10 92 05/06/23 02:00 96 05/06/23 01:30 98.6 F 94 22 168/95 97 05/05/23 22:23 100.2 F H 111 H 24 162/90 95 Intake and Output 05/05/23 05/06/23 05/06/23 22:59 06:59 14:59 Other: Weight 106.594 kg Results CBC & Chem 7: 05/05/23 22:40 05/05/23 22:40 Labs: Abnormal Lab Results - Last 24 Hours (Table) 05/05/23 05/05/23 05/05/23 Range/Units 22:40 22:40 22:40 WBC 11.7 H (3.8-10.6) k/uL ESR 16 H (0-15) mm/hr Carbon Dioxide 19 L (22-30) mmol/L Glucose 154 H (74-99) mg/dL Plasma Lactic Acid Ajit 2.7 H* (0.7-2.0) mmol/L Assessment and Plan Plan: 1patient with a chronic nonhealing wound to the left foot previous amputation of the third and fourth toe now presenting presenting to the hospital with worsening pain did have evidence of low-grade fever elevated white count concerning for wound infection we will need to cover for both gram-positive as well as gram-negative pathogen. 2await vascular surgery evaluation for debridement and deep culture. 3we will empirically cover with vancomycin cefepime while waiting for the work- up and cultures to finalize. We will follow on clinical condition and cultures to further adjust medication if needed Thank you for this consultation we will follow the patient along with you Dictation was produced using [employer] dictation software. please excuse any grammatical, word or spelling errors. Time with Patient: Greater than 30
--- NOTE | 2023-05-06 22:03 | P.HPIM ---
History of Present Illness H&P Date: 05/06/23 Chief Complaint: Left foot pain and infection Patient is a 62-year-old male with a known history of hypertension, hyperlipidemia, diabetes type 2 [id number], history of DVT on anticoagulation with Eliquis, COPD, current everyday smoker and depression and marijuana use presents to ER with complaints of left foot infection. Patient has chronic diabetic ulcer on the dorsum of first metatarsal of the left foot. Also has history of third and fourth ray amputations. Patient has been having bleeding wound and follow-up with wound care clinic. Over the last few days patient has been having worsening pain and purulent discharge. Patient presented to ER. Not on any current antibiotics at home. Patient was having fever with Tmax 100.2 on admission and also tachycardic with heart rate 111. Blood pressure is also elevated on admission. Laboratory showed WBC 11.7 hemoglobin 15.1 and platelets 321 Sodium 138 potassium 4.5 chloride 106 bicarb is 19 BUN 13 and creatinine 0.78 and blood sugar is 154 and lactic acid 2.7. Liver edge is not elevated. CRP level is 0.6 and ESR 16. Review of Systems Constitutional: Patient patient does have fever. No chills.. no Generalized weakness. Abdomen: Patient denied any nausea or vomiting or abd. pain Cardiovascular: Patient denies any chest pain or short of breath no palpitations. Respiratory: patient denied any cough . no sputum production. No shortness of breath Neurologic: Patient denied any numbness or tingling headache. Musculoskeletal: Patient denies any complaints of joint swelling or deformity. Left foot pain and wound infection. Skin: Negative Psychiatric: Negative Endocrine: No heat or cold intolerance. No recent weight gain. Genitourinary: No dysuria or hematuria. All other 14 point ROS negative except the above Past Medical History Past Medical History: COPD, Diabetes Mellitus, Deep Vein Thrombosis (DVT), Hyperlipidemia, Hypertension Additional Past Medical History / Comment(s): PVD, COPD, HTN, DM type 2, Depression, obesity, hyperlipidemia History of Any Multi-Drug Resistant Organisms: None Reported Past Surgical History: Hernia Repair, Orthopedic Surgery Additional Past Surgical History / Comment(s): removal of all teeth , 3rd and 4th toes left foot amputation, umbilical hernia surgery, laser surgery for gla ucoma Additional Past Anesthesia/Blood Transfusion Reaction / Comment(s): no previous blood transfusions Past Psychological History: No Psychological Hx Reported Smoking Status: Current every day smoker Past Alcohol Use History: None Reported Past Drug Use History: Marijuana - Past Family History Father Family Medical History: Chest Pain / Angina, Congestive Heart Failure (CHF), Diabetes Mellitus, Hypertension Mother Family Medical History: COPD, Deep Vein Thrombosis (DVT), Vascular Disorder Medications and Allergies Home Medications Medication Instructions Recorded Confirmed Type Albuterol Inhaler [Ventolin Hfa 2 puff INHALATION RT-QID PRN #1 08/13/20 05/06/23 Rx Inhaler] inhaler Apixaban [Eliquis] 2.5 mg PO BID 04/12/21 05/06/23 History Atorvastatin Calcium [Lipitor] 80 mg PO HS 04/12/21 05/06/23 History Ergocalciferol (Vitamin D2) 1,250 mcg PO Q7D 04/12/21 05/06/23 History [Drisdol (50,000 Iu)] Gabapentin 600 mg PO TID 04/12/21 05/06/23 History Ipratropium-Albuterol Nebulize 3 ml INHALATION RT-QID PRN 04/12/21 05/06/23 History [Duoneb 0.5 mg-3 mg/3 ml Soln] Metoprolol Tartrate [Lopressor] 50 mg PO BID 04/12/21 05/06/23 History buPROPion SR [Wellbutrin SR] 150 mg PO BID 04/12/21 05/06/23 History metFORMIN HCL [Glucophage] 1,000 mg PO BID-W/MEALS 04/12/21 05/06/23 History DULoxetine HCL [Cymbalta] 30 mg PO DAILY 05/06/23 05/06/23 History Dulaglutide [Trulicity] 4.5 mg SQ Q7D 05/06/23 05/06/23 History EPINEPHrine (Auto Inject) [Epipen] 0.3 mg IM ONCE PRN 05/06/23 05/06/23 History Empagliflozin [Jardiance] 10 mg PO DAILY 05/06/23 05/06/23 History HYDROcodone/APAP 7.5-325MG [[place] 1 tab PO TID PRN 05/06/23 05/06/23 History 7.5-325] Loratadine [Claritin] 10 mg PO DAILY 05/06/23 05/06/23 History Losartan Potassium [Cozaar] 100 mg PO DAILY 05/06/23 05/06/23 History tiZANidine [Zanaflex] 4 mg PO TID PRN 05/06/23 05/06/23 History Allergies Allergy/AdvReac Type Severity Reaction Status Date / Time acetaminophen [From Fioricet] Allergy Anaphylaxis Verified 05/06/23 06:44 butalbital [From Fioricet] Allergy Anaphylaxis Verified 05/06/23 06:44 caffeine [From Fioricet] Allergy Anaphylaxis Verified 05/06/23 06:44 Penicillins Allergy Rash/Hives Verified 05/06/23 06:44 venom-honey bee Allergy Anaphylaxis Verified 05/06/23 06:44 [bee venom (honey bee)] Physical Exam Vitals: Vital Signs Temp Pulse Pulse Resp BP BP Pulse Ox 05/06/23 09:18 98.8 F 80 20 164/78 97 05/06/23 09:12 96 05/06/23 09:04 95 05/06/23 06:00 76 22 153/91 98 05/06/23 05:00 82 20 132/64 97 05/06/23 03:29 90 22 146/74 99 05/06/23 02:10 92 05/06/23 02:00 96 05/06/23 01:30 98.6 F 94 22 168/95 97 05/05/23 22:23 100.2 F H 111 H 24 162/90 95 Intake and Output 05/05/23 05/06/23 05/06/23 22:59 06:59 14:59 Other: Weight 106.594 kg PHYSICAL EXAMINATION: Patient is lying in the bed comfortably, no acute distress, awake alert and oriented.. HEENT: Normocephalic. Neck is supple. Pupils reactive. Nostrils clear. Oral cavity is moist. Neck reveals no JVD, carotid bruits, or thyromegaly. CHEST EXAMINATION: Trachea is central. Symmetrical expansion. Lung garcía clear to auscultation and percussion. CARDIAC: Normal S1, S2 with no gallops. No murmurs ABDOMEN: Soft. Bowel sounds present. Nontender. No organomegaly. No abdominal bruits. Extremities: reveal no edema. Patient does have ulcer measuring 8 x 3 cm over the left first metatarsal region. No clubbing or cyanosis Neurologically awake, alert, oriented x3 with well-coordinated movements. No focal deficits noted Skin: No rash or skin lesions. Psychiatric: Coperative. Nonsuicidal, Musculoskeletal: No joint swelling or deformity. Normal range of motion. Results CBC & Chem 7: 05/05/23 22:40 05/05/23 22:40 Labs: Abnormal Lab Results - Last 24 Hours (Table) 05/05/23 05/05/23 05/05/23 Range/Units 22:40 22:40 22:40 WBC 11.7 H (3.8-10.6) k/uL ESR 16 H (0-15) mm/hr Carbon Dioxide 19 L (22-30) mmol/L Glucose 154 H (74-99) mg/dL Plasma Lactic Acid Ajit 2.7 H* (0.7-2.0) mmol/L Thrombosis Risk Factor Assmnt - DVT/VTE Prophylaxis DVT/VTE Prophylaxis: Pharmacologic Prophylaxis ordered Assessment and Plan Assessment: Diabetic foot ulcer with infection over the dorsum of the first metatarsal, nonhealing. Sepsis secondary to above Peripheral vascular disease with prior history of left third and fourth toe amputation Lactic acidosis resolved. Diabetes type 2 [id number] History of DVT on anticoagulation Hypertension Hyperlipidemia Current everyday smoker DVT prophylaxis. Eliquis is on hold for possible surgical intervention. Plan: Patient will be continued on IV hydration with normal saline. Continue with broad-spectrum antibiotics vancomycin and cefepime. Vascular surgery was consulted for possible debridement and deep cultures. Continue with pain management with Dilaudid. Continue insulin sliding scale and follow-up CBG before meals and at bedtime. ID and vascular surgery is on board. Time with Patient: Greater than 30
[2023-05-07] MEDS: HYDROmorphone 1 MG/ML 1 ML SYRINGE IVP PRN ×4 (00:51→10:40)
[2023-05-07] MEDS: SODIUM CHLORIDE 0.9% 1,000 ML IV SCH ×2 (00:56→13:54)
[2023-05-07] MEDS: CEFEPIME 2 GM in SODIUM CHLORIDE 0.9% 100 ML IVPB SCH ×3 (01:02→17:37)
[2023-05-07] MEDS: IPRATROPIUM-ALBUTEROL 3 ML NEB INHALATION PRN ×2 (01:25→04:41)
[2023-05-07] MEDS: VANCOMYCIN 2,000 MG in SODIUM CHLORIDE 0.9% 500 ML 500 ML IVPB SCH ×2 (03:05→15:36)
[2023-05-07 07:27] LABS: Glucose,Whole Blood 144 mg/dL (70-110)
[2023-05-07] MEDS: INSULIN ASPART (NovoLOG) 100 UNIT/ML VIAL SQ SCH ×4 (07:34→21:19)
[2023-05-07] MEDS: IPRATROPIUM-ALBUTEROL 3 ML NEB INHALATION SCH ×5 (07:52→20:02)
[2023-05-07 08:41] LABS: Basophils # (A) 0.05 X 10*3/uL (0.00-0.10); Basophils % (A) 0.6 %; Eosinophils # (A) 0.54 X 10*3/uL (0.04-0.35); HCT 38.7 % (39.6-50.0); HGB 13.3 d/dL (13.0-17.0); Lymphocytes # (A) 2.06 X 10*3/uL (0.90-5.00); Lymphocytes % (A) 22.7 %; MCH 32.7 pg (27.0-32.0); MCHC 34.4 d/dL (32.0-37.0); MCV 95.1 FL (80.0-97.0); Mean Platelet Volume 8.9 FL (9.5-12.2); Monocytes # (A) 0.65 X 10*3/uL (0.20-1.00); Monocytes % (A) 7.2 %; NRBC Per 100 WBC 0 X 10*3/uL (0.00-0.01); Neutrophils # (A) 5.74 X 10*3/uL (1.80-7.70); Neutrophils % (A) 63.2 %; Platelet Count 300 X 10*3/uL (140-440); RBC 4.07 X 10*6/uL (4.40-5.60); RDW 12.1 % (11.5-14.5); WBC 9.07 X 10*3/uL (4.50-10.00)
[2023-05-07] MEDS: DULoxetine HCL 30 MG CAPSULE.DR PO SCH (08:59)
[2023-05-07] MEDS: HYDROcodone/APAP 7.5-325MG 1 EACH TAB PO PRN (08:59)
[2023-05-07] MEDS: GABAPENTIN 300 MG CAP PO SCH ×3 (09:00→21:29)
[2023-05-07] MEDS: LOSARTAN 50 MG TAB PO SCH (09:00)
[2023-05-07] MEDS: METOPROLOL TARTRATE 50 MG TAB PO SCH ×2 (09:00→21:19)
[2023-05-07 09:09] LABS: BUN/Creat Ratio 17.57 Ratio (12.00-20.00); Blood Urea Nitrogen 12.3 mg/dL (9.0-27.0); Calcium 9.3 mg/dL (8.7-10.3); Carbon Dioxide 23.4 mmol/L (21.6-31.8); Chloride 106 mmol/L (96-109); Glucose 154 mg/dL (70-110); Potassium 4.1 mmol/L (3.5-5.5); Sodium 139 mmol/L (135-145)
--- NOTE | 2023-05-07 10:05 | P.GSCN ---
History of Present Illness Consult date: 05/07/23 Reason for Consult: Left gangrene foot Requesting physician: Gabe Corrigan History of present illness: This is a 62-year-old male with known peripheral arterial disease status post revascularization done at [facility] about 3 years ago according to the patient. His past medical history also includes hypertension, hyperlipidemia, type 2 diabetes mellitus, history of DVT on anticoagulation, COPD and current every day smoker including cigarettes and marijuana. Patient came into the emergency department for complaints of increased pain and redness as well as swelling in his left foot. He's had wounds to his foot for the last 2 years. He's had his third and fourth toe amputated again down at [facility]. He had been following with Dr. Corrigan in the past, apparently saw him 2-3 months ago. Reportedly had some imaging done at that time at [facility]. That is not available at this time. Patient has not been following with anybody for the last several months for any wound care. Patient was seen yesterday by Dr. Corrigan who then consulted Dr. Arora for further evaluation and treatment. Apparently patient did have some imaging done at [facility] a few months ago. States he has had some revascularization done to left lower extremity however he is not sure what. He had never followed up with his vascular surgeon at [facility] as recommended. Patient currently states he has significant amount of pain in the left foot, swelling, tenderness, he was febrile on admission with a max temp of 100.2. He has been started on IV antibiotics. He currently denies any shortness of breath, chest pain, abdominal pain, nausea or vomiting. Last dose of Eliquis was 05/05/2023. Review of Systems A 14 point review systems was completed all pertinent positives and negatives as stated in the HPI. Past Medical History Past Medical History: COPD, Diabetes Mellitus, Deep Vein Thrombosis (DVT), Hyperlipidemia, Hypertension Additional Past Medical History / Comment(s): PVD, COPD, HTN, DM type 2, Depression, obesity, hyperlipidemia History of Any Multi-Drug Resistant Organisms: None Reported Past Surgical History: Hernia Repair, Orthopedic Surgery Additional Past Surgical History / Comment(s): removal of all teeth , 3rd and 4th toes left foot amputation, umbilical hernia surgery, laser surgery for glaucoma Additional Past Anesthesia/Blood Transfusion Reaction / Comm: no previous blood transfusions Past Psychological History: No Psychological Hx Reported Smoking Status: Current every day smoker Past Alcohol Use History: None Reported Past Drug Use History: Marijuana - Past Family History Father Family Medical History: Chest Pain / Angina, Congestive Heart Failure (CHF), Diabetes Mellitus, Hypertension Mother Family Medical History: COPD, Deep Vein Thrombosis (DVT), Vascular Disorder Medications and Allergies Home Medications Medication Instructions Recorded Confirmed Type Albuterol Inhaler [Ventolin Hfa 2 puff INHALATION RT-QID PRN #1 08/13/20 05/06/23 Rx Inhaler] inhaler Apixaban [Eliquis] 2.5 mg PO BID 04/12/21 05/06/23 History Atorvastatin Calcium [Lipitor] 80 mg PO HS 04/12/21 05/06/23 History Ergocalciferol (Vitamin D2) 1,250 mcg PO Q7D 04/12/21 05/06/23 History [Drisdol (50,000 Iu)] Gabapentin 600 mg PO TID 04/12/21 05/06/23 History Ipratropium-Albuterol Nebulize 3 ml INHALATION RT-QID PRN 04/12/21 05/06/23 History [Duoneb 0.5 mg-3 mg/3 ml Soln] Metoprolol Tartrate [Lopressor] 50 mg PO BID 04/12/21 05/06/23 History buPROPion SR [Wellbutrin SR] 150 mg PO BID 04/12/21 05/06/23 History metFORMIN HCL [Glucophage] 1,000 mg PO BID-W/MEALS 04/12/21 05/06/23 History DULoxetine HCL [Cymbalta] 30 mg PO DAILY 05/06/23 05/06/23 History Dulaglutide [Trulicity] 4.5 mg SQ Q7D 05/06/23 05/06/23 History EPINEPHrine (Auto Inject) [Epipen] 0.3 mg IM ONCE PRN 05/06/23 05/06/23 History Empagliflozin [Jardiance] 10 mg PO DAILY 05/06/23 05/06/23 History HYDROcodone/APAP 7.5-325MG [[place] 1 tab PO TID PRN 05/06/23 05/06/23 History 7.5-325] Loratadine [Claritin] 10 mg PO DAILY 05/06/23 05/06/23 History Losartan Potassium [Cozaar] 100 mg PO DAILY 05/06/23 05/06/23 History tiZANidine [Zanaflex] 4 mg PO TID PRN 05/06/23 05/06/23 History Allergies Allergy/AdvReac Type Severity Reaction Status Date / Time acetaminophen [From Fioricet] Allergy Anaphylaxis Verified 05/06/23 06:44 butalbital [From Fioricet] Allergy Anaphylaxis Verified 05/06/23 06:44 caffeine [From Fioricet] Allergy Anaphylaxis Verified 05/06/23 06:44 Penicillins Allergy Rash/Hives Verified 05/06/23 06:44 venom-honey bee Allergy Anaphylaxis Verified 05/06/23 06:44 [bee venom (honey bee)] Surgical - Exam Vital Signs Temp Pulse Resp BP Pulse Ox 100.2 F H 111 H 24 162/90 95 05/05/23 22:23 05/05/23 22:23 05/05/23 22:23 05/05/23 22:23 05/05/23 22:23 General appearance: The patient is alert, oriented, appears in no acute distress. HET: Head is normocephalic and atraumatic. Pupils are equal and reactive. Neck: Supple. Heart: Regular. Lungs: Equal expansion, normal respiratory effort. Abdomen: Soft, nontender, nondistended. Extremities: Palpable femoral pulses, nonpalpable PT and DP pulses bilaterally. Left foot with swelling, redness, third and fourth toe amputation, and ulcer to the great toe and dorsal aspect near the fifth toe. Neurological: No focal deficits. Alert and oriented. Results - Labs 05/07/23 05:51 05/07/23 05:51 Abnormal Lab Results - Last 24 Hours (Table) 05/06/23 05/06/23 05/06/23 Range/Units 12:47 17:52 20:29 POC Glucose (mg/dL) 170 H 135 H 121 H (70-110) mg/dL 05/07/23 Range/Units 07:25 POC Glucose (mg/dL) 144 H (70-110) mg/dL Microbiology - Last 24 Hours (Table) 05/06/23 01:39 Gram Stain - Preliminary Foot - Left - Imaging Comments: X-ray left foot: Amputation of third and fourth rays at the proximal phalanxes. If concern for osteomyelitis, MRI recommended. Evaluation limited given the patient's overlying bandages Assessment and Plan Assessment: 1. Infected diabetic ulcers 2. Peripheral arterial disease with reported history of revascularization 3. History of third and fourth toe amputation 4. Diabetes mellitus 5. Hypertension 6. Hyperlipidemia 7. COPD 8. Tobacco abuse Plan: 1. Upload patient disk from [facility] please 2. Arterial ultrasound lower extremities ordered 3. Hold Eliquis 4. Plan for left transmetatarsal amputation versus left below the knee amputation tomorrow. Likely left [id number] amputation 5. Nothing by mouth after midnight Further recommendations forthcoming per vascular surgeon. Thank you for this consultation. The impression and plan of care has been dictated as directed. I performed a history and examination of this patient, discussed the same with the dictator. I agree with the dictator's note ,documented as a scribe. Any additional findings or plans will be noted.
[2023-05-07] MEDS: buPROPion SR 150 MG TABLET.ER PO SCH ×2 (10:40→21:19)
[2023-05-07] MEDS ORDERED: LIDOCAINE 1% INJ 10MG/ML (5 ML VIAL-PF) SQ ONE (11:54)
[2023-05-07 12:45] LABS: Glucose,Whole Blood 145 mg/dL (70-110)
--- NOTE | 2023-05-07 12:57 | US ---
EXAMINATION TYPE: US arterial LE multi level DATE OF EXAM: 05/07/2023 10:27 AM CLINICAL INDICATION: Male, 62 years old with history of gangrene, non healing ulcers, PAD; two gangre nous vascular ulcers left foot History of: Smoker: Current Smoker Hypertension: Yes Diabetic: Yes Hyperlipidemia: Yes, on meds TIA/CVA: No Previous Vascular Surgery: Yes, pt claims he has stents in the Lt leg, confirmed it was ok to advance with exam anyways. Pt. is poor historian CAD: No SD: unsure Vascular Ulcers: Left Claudication: Left Gangrene: Left Doppler Waveforms: Right: Multiphasic Left: Multiphasic Right Brachial Pressure: 152 Left Brachial Pressure: IV in place Ankle-Brachial Indices: Right: 1.3 Left: 0.97, unable to calculate with ankle due to patient inability to tolerate cuffs at ankle level, used calf pressure instead Toe Brachial Indices: Right: non-compressible Left: patient unable to tolerate Patient was unable to tolerate cuffs at left ankle, toes or transducer pressure at DPA area, limiting the exam. Attempt was made to obtain pressures higher up the leg at the calf (0.97) and low thigh (n on-compressible). IMPRESSION: 1. Normal right ERIC index. The left could not be calculated as discussed above.
[2023-05-07] MEDS ORDERED: NALOXONE 0.4 MG/ML 1 ML VIAL IV PRN (13:10)
--- NOTE | 2023-05-07 13:13 | IR ---
PICC LINE PLACEMENT: HISTORY: Infection requiring long-term antibiotic therapy PROCEDURE: Ultrasound and fluoroscopic guidance of PICC line placement. COMPLICATIONS: None ANESTHESIA: 1. 1% Lidocaine locally. FINDINGS/TECHNIQUE: The procedure was explained to the patient. The risks, complications, benefits and alternatives were discussed and any questions were answered. Informed consent was obtained. The patient was placed supine on the fluoroscopic table and prepped and draped in the usual sterile fash ion. Utilizing a 21 gauge needle and sonographic and fluoroscopic guidance, access in the left basi lic vein was achieved and there is placement of a 0.018 guidewire. The vein is patent. A 4-F sheath was placed over the guidewire. The guidewire and dilator were removed and a 4-F. PICC line was plac ed through the sheath with the tip at the level of the SVC. The sheath was removed, the catheter was flushed and sutured into position. The patient was stable throughout the procedure and remained sta ble upon discharge from the Department of Radiology. The vein puncture was patent under ultrasound. A livingston scale image was obtained to document patency of the vein punctured. All elements of the maximal barrier technique were utilized. FLUOROSCOPY TIME: DAP 0.171Gy cm2 IMPRESSION: Successful PICC line placement under ultrasound and fluoroscopic guidance.
[2023-05-07] MEDS ORDERED: HYDROmorphone (PF) 50 MG in SODIUM CHLORIDE 0.9% 45 ML IV SCH (13:30)
[2023-05-07] MEDS: HYDROmorphone PCA 10 MG/50 ML BAG IV PRN (13:54)
--- NOTE | 2023-05-07 15:17 | P.PN ---
Subjective Progress Note Date: 05/07/23 Principal diagnosis: Left foot wound and cellulitis Patient is a 62-year-old male with a past medical history significant for diabetes mellitus hypertension hyperlipidemia DVT COPD patient presenting to the hospital with worsening pain swelling redness to the left foot , patient with a chronic nonhealing wound to the left foot and did have history of PAD. On today's evaluation that is 05/07/2023, the patient is afebrile, the patient is breathing comfortably , the patient denies chest pain and no significant cough, the patient denies nausea and vomiting no abdominal pain and no diarrhea, patient said complain of pain to the left foot with some improvement of the pain medication. Patient white count normalized to 9.07, creatinine 0.7 local cultures currently growing gram-negative Objective - Vital Signs Vital signs: Vital Signs Temp 98.8 F 05/07/23 07:24 Pulse 80 05/07/23 08:04 Resp 18 05/07/23 07:24 BP 133/64 05/07/23 07:24 Pulse Ox 95 05/07/23 07:24 FiO2 Intake & Output 05/06/23 05/07/23 05/07/23 18:59 06:59 18:59 Output Total 800 900 Balance -800 -900 Weight 106.594 kg Output: Urine 800 900 Other: # Voids 1 - Exam GENERAL DESCRIPTION: Middle-aged male lying in bed in no distress RESPIRATORY SYSTEM: Unlabored breathing , decreased breath sounds at bases HEART: S1 S2 regular rate and rhythm , ABDOMEN: Soft , no tenderness EXTREMITIES: Left foot wound with some slough tissue no foul-smelling drainage - Labs CBC & Chem 7: 05/07/23 05:51 05/07/23 05:51 Labs: Abnormal Lab Results - Last 24 Hours (Table) 05/06/23 05/06/23 05/06/23 Range/Units 12:47 17:52 20:29 RBC (4.40-5.60) X 10*6/uL Hct (39.6-50.0) % MCH (27.0-32.0) pg MPV (9.5-12.2) FL Eosinophils # (0.04-0.35) X 10*3/uL Glucose (70-110) mg/dL POC Glucose (mg/dL) 170 H 135 H 121 H (70-110) mg/dL Hemoglobin A1c (<=6.0) % 05/07/23 05/07/23 05/07/23 Range/Units 05:51 05:51 05:51 RBC 4.07 L (4.40-5.60) X 10*6/uL Hct 38.7 L (39.6-50.0) % MCH 32.7 H (27.0-32.0) pg MPV 8.9 L (9.5-12.2) FL Eosinophils # 0.54 H (0.04-0.35) X 10*3/uL Glucose 154 H (70-110) mg/dL POC Glucose (mg/dL) (70-110) mg/dL Hemoglobin A1c 8.1 H (<=6.0) % 05/07/23 Range/Units 07:25 RBC (4.40-5.60) X 10*6/uL Hct (39.6-50.0) % MCH (27.0-32.0) pg MPV (9.5-12.2) FL Eosinophils # (0.04-0.35) X 10*3/uL Glucose (70-110) mg/dL POC Glucose (mg/dL) 144 H (70-110) mg/dL Hemoglobin A1c (<=6.0) % Microbiology - Last 24 Hours (Table) 05/06/23 01:39 Gram Stain - Preliminary Foot - Left Wound Culture - Preliminary Gram Neg Bacilli Assessment and Plan (1) Diabetic wet gangrene of the foot Current Visit: Yes Status: Acute Code(s): E11.52 - TYPE 2 DIABETES W DIABETIC PERIPHERAL ANGIOPATHY W GANGRENE SNOMED Code(s): 905499620 Plan: 1patient with a chronic nonhealing wound to the left foot previous amputation of the third and fourth toe now presenting presenting to the hospital with worsening pain did have evidence of low-grade fever elevated white count concerning for wound infection we will need to cover for both gram-positive as well as gram-negative pathogen. 2patient has been evaluated by vascular surgery awaiting debridement and deep culture. 3patient to continue with vancomycin cefepime while waiting for the work-up and cultures to finalize. Dictation was produced using [employer] dictation software. please excuse any grammatical, word or spelling errors. Time with Patient: Less than 30
[2023-05-07] MEDS: ONDANSETRON 4 MG/2 ML VIAL IVP PRN (15:43)
[2023-05-07] MEDS ORDERED: hydrALAZINE HCL 20 MG/ML 1 ML VIAL IVP PRN (16:22)
--- NOTE | 2023-05-07 16:23 | P.PN ---
Subjective Progress Note Date: 05/07/23 Patient is a 62-year-old male with a known history of hypertension, hyperlipidemia, diabetes type 2 [id number], history of DVT on anticoagulation with Eliquis, COPD, current everyday smoker and depression and marijuana use presents to ER with complaints of left foot infection. Patient has chronic diabetic ulcer on the dorsum of first metatarsal of the left foot. Also has history of third and fourth ray amputations. Patient has been having bleeding wound and follow-up with wound care clinic. Over the last few days patient has been having worsening pain and purulent discharge. Patient presented to ER. Not on any current antibiotics at home. Patient was having fever with Tmax 100.2 on admission and also tachycardic with heart rate 111. Blood pressure is also elevated on admission. Laboratory showed WBC 11.7 hemoglobin 15.1 and platelets 321 Sodium 138 potassium 4.5 chloride 106 bicarb is 19 BUN 13 and creatinine 0.78 and blood sugar is 154 and lactic acid 2.7. Liver edge is not elevated. CRP level is 0.6 and ESR 16. 05/07/2023 Patient is seen and evaluated in follow-up this morning maintained on IV antibiotics with infectious disease and vascular surgery following. Patient is tentatively scheduled to undergo amputation possibly below the knee amputation of the left with Dr. Montes vascular surgery tomorrow and patient will be nothing by mouth at midnight. Patient continues to report severe 10/10 pain and have adjusted pain medications. Patient lost IV access and is a difficult stick and discussed further with infectious disease and will order PICC line as preliminary cultures are showing gram-negative and awaiting finalized cultures as patient may require IV antibiotics on discharge. Patient is currently afebrile and white count is normal at 9.07, other labs within normal limits and blood sugars are being monitored. Blood sugars well controlled on current regimen and will continue. Hemoglobin A1c is 8.1. Review of systems: Constitutional: No reports of fatigue, fever, or chills Cardiovascular: No reports of chest pain or palpitations Respiratory: No reports of shortness of breath or cough GI: No reports of nausea, vomiting, or diarrhea : No reports of dysuria or retention Neurovascular: reports of generalized weakness , reports extreme left foot pain All medications have been reviewed PHYSICAL EXAMINATION: Patient is lying in the bed comfortably, no acute distress, awake alert and oriented.. HEENT: Normocephalic. Neck is supple. Pupils reactive. Nostrils clear. Oral cavity is moist. Neck reveals no JVD, carotid bruits, or thyromegaly. CHEST EXAMINATION: Trachea is central. Symmetrical expansion. Lung garcía clear to auscultation and percussion. CARDIAC: Normal S1, S2 with no gallops. No murmurs ABDOMEN: Soft. Bowel sounds present. Nontender. No organomegaly. No abdominal bruits. Extremities: reveal no edema. Patient does have ulcer measuring 8 x 3 cm over the left first metatarsal region. No clubbing or cyanosis Neurologically awake, alert, oriented x3 with well-coordinated movements. No focal deficits noted Skin: No rash or skin lesions. Psychiatric: Cooperative. Non-suicidal, Musculoskeletal: No joint swelling or deformity. Normal range of motion. Assessment: Diabetic foot ulcer with infection over the dorsum of the first metatarsal, nonhealing. Sepsis secondary to above Peripheral vascular disease with prior history of left third and fourth toe amputation Lactic acidosis, resolved. Diabetes type 2 [id number] History of DVT on anticoagulation Hypertension Hyperlipidemia Current everyday smoker Obesity with BMI of 35.7 GI prophylaxis DVT prophylaxis. Eliquis is on hold for possible surgical intervention. Full code Plan: Patient is currently maintained on IV antibiotics in the form of cefepime and vancomycin with infectious disease following. Vascular surgery Dr. Montes consulted and recommended holding anticoagulation with plans for transmetatarsal amputation versus left below the knee amputation tomorrow, favoring left below the knee amputation Patient will be nothing by mouth at midnight Continue with pain management and have increased [place] as patient was recently started on [place] tens in the outpatient setting by primary care provider and patient is reporting his pain is severe Patient will be continued on IV hydration with normal saline. Follow-up labs ordered for a.m. Patient lost IV access and is a difficult stick and will order PICC line after discussing with infectious disease in the event patient will require IV antibiotic therapy as we have no staff in the [facility] to perform PICC lines tomorrow. Continue with pain management with Dilaudid. Home medications reviewed and resumed Continue insulin sliding scale an continue to monitor Accu-Cheks before meals and at bedtime Prognosis is guarded The impression and plan of care has been dictated by Lillie Matt, Nurse Practitioner as directed. Dr. Odalis MD I have performed a history and examination and MDM of this patient, discussed the same with the dictator, and agree with the dictator's assessment and plan as written ,documented as a scribe. Based on total visit time, I have performed more than 50% of the visit. Objective - Vital Signs Vital signs: Vital Signs Temp 98.9 F 05/07/23 12:41 Pulse 78 05/07/23 15:44 Resp 20 05/07/23 12:41 BP 184/98 05/07/23 12:41 Pulse Ox 98 05/07/23 13:10 FiO2 Intake & Output 05/06/23 05/07/23 05/07/23 18:59 06:59 18:59 Output Total 800 900 Balance -800 -900 Weight 106.594 kg Output: Urine 800 900 Other: # Voids 1 - Labs CBC & Chem 7: 05/07/23 05:51 05/07/23 05:51 Labs: Abnormal Lab Results - Last 24 Hours (Table) 05/06/23 05/06/23 05/07/23 Range/Units 17:52 20:29 05:51 RBC (4.40-5.60) X 10*6/uL Hct (39.6-50.0) % MCH (27.0-32.0) pg MPV (9.5-12.2) FL Eosinophils # (0.04-0.35) X 10*3/uL Glucose (70-110) mg/dL POC Glucose (mg/dL) 135 H 121 H (70-110) mg/dL Hemoglobin A1c 8.1 H (<=6.0) % 05/07/23 05/07/23 05/07/23 Range/Units 05:51 05:51 07:25 RBC 4.07 L (4.40-5.60) X 10*6/uL Hct 38.7 L (39.6-50.0) % MCH 32.7 H (27.0-32.0) pg MPV 8.9 L (9.5-12.2) FL Eosinophils # 0.54 H (0.04-0.35) X 10*3/uL Glucose 154 H (70-110) mg/dL POC Glucose (mg/dL) 144 H (70-110) mg/dL Hemoglobin A1c (<=6.0) % 05/07/23 Range/Units 12:43 RBC (4.40-5.60) X 10*6/uL Hct (39.6-50.0) % MCH (27.0-32.0) pg MPV (9.5-12.2) FL Eosinophils # (0.04-0.35) X 10*3/uL Glucose (70-110) mg/dL POC Glucose (mg/dL) 145 H (70-110) mg/dL Hemoglobin A1c (<=6.0) % Microbiology - Last 24 Hours (Table) 05/06/23 01:10 Blood Culture - Preliminary Blood 05/06/23 01:26 Blood Culture - Preliminary Blood 05/06/23 01:39 Gram Stain - Preliminary Foot - Left Wound Culture - Preliminary Gram Neg Bacilli
[2023-05-07 17:27] LABS: Glucose,Whole Blood 219 mg/dL (70-110)
[2023-05-07 20:52] LABS: Glucose,Whole Blood 189 mg/dL (70-110)
[2023-05-07] MEDS: ATORVASTATIN 80 MG TAB PO SCH (21:19)
[2023-05-08] MEDS: CEFEPIME 2 GM in SODIUM CHLORIDE 0.9% 100 ML IVPB SCH ×3 (00:56→17:32)
[2023-05-08] MEDS: IPRATROPIUM-ALBUTEROL 3 ML NEB INHALATION PRN ×2 (01:12→06:10)
[2023-05-08] MEDS: VANCOMYCIN 2,000 MG in SODIUM CHLORIDE 0.9% 500 ML 500 ML IVPB SCH ×2 (02:20→17:45)
[2023-05-08 07:17] LABS: Glucose,Whole Blood 136 mg/dL (70-110)
[2023-05-08] MEDS: IPRATROPIUM-ALBUTEROL 3 ML NEB INHALATION SCH ×4 (07:41→20:41)
[2023-05-08] MEDS: INSULIN ASPART (NovoLOG) 100 UNIT/ML VIAL SQ SCH ×4 (08:35→21:36)
--- NOTE | 2023-05-08 09:35 | P.PN ---
Progress Note - Text Progress Note Date: 05/08/23 Patient seen and examined. Previous history and imaging is reviewed. Long discussion had in regards to potential options. Discussed that we could go forward with operative treatment, foot amputation and prolonged wound healing attempts with wound care. Discussed that there is minimal potential for revascularization given the location of the occlusions in the distal tibial vessels. At this point the patient states he is comfortable enough with wound care and continue her on an rather just go forward with a below-knee amputation to get this taken care of. I think this is reasonable given the diminished outflow potential. We'll plan to go forward with a below-knee amputation today. Risks and benefits including but not limited to bleeding, infection, cardiopulmonary risks werereviewed. He seemingly understood and was willing to proceed.
[2023-05-08] MEDS: HYDROmorphone PCA 10 MG/50 ML BAG IV PRN (10:09)
[2023-05-08] MEDS: LOSARTAN 50 MG TAB PO SCH (10:57)
[2023-05-08] MEDS: METOPROLOL TARTRATE 50 MG TAB PO SCH ×2 (10:58→21:36)
[2023-05-08] MEDS: buPROPion SR 150 MG TABLET.ER PO SCH ×2 (10:58→21:36)
[2023-05-08] MEDS: DULoxetine HCL 30 MG CAPSULE.DR PO SCH ×2 (10:58→12:17)
[2023-05-08] MEDS: GABAPENTIN 300 MG CAP PO SCH ×3 (10:58→21:36)
[2023-05-08 11:52] LABS: Glucose,Whole Blood 147 mg/dL (70-110)
[2023-05-08] MEDS ORDERED: DEXAMETHASONE SOD PHOSPHATE 4 MG/ML 1 ML VIAL IV ONE (12:12)
[2023-05-08] MEDS ORDERED: MIDAZOLAM 2 MG/2 ML VIAL IV PRN (12:12)
[2023-05-08] MEDS ORDERED: LIDOCAINE 1% (10MG/ML) FOR IV START INTRADERMA PRN (12:12)
[2023-05-08] MEDS ORDERED: HYDROmorphone 0.5 MG/0.5 ML SYRINGE IVP PRN (12:12)
[2023-05-08] MEDS ORDERED: ONDANSETRON 4 MG/2 ML VIAL IVP ONE (12:12)
[2023-05-08] MEDS: LACTATED RINGERS 1,000 ML IV SCH (12:20)
[2023-05-08] MEDS ORDERED: fentaNYL (PF) 50 MCG/1 ML VIAL IVP ONE (12:40)
[2023-05-08] MEDS ORDERED: fentaNYL (PF) 50 MCG/ML 2 ML AMP IVP ONE ×2 (12:50→15:37)
[2023-05-08] MEDS ORDERED: LIDOCAINE 2% INJ 20 MG/ML (2 ML VIAL) ONE (13:14)
[2023-05-08] MEDS ORDERED: MIDAZOLAM 2 MG/2 ML VIAL ONE (13:14)
[2023-05-08] MEDS ORDERED: GLYCOPYRROLATE 0.2 MG/ML 2 ML VIAL ONE (13:14)
[2023-05-08] MEDS ORDERED: SUCCINYLCHOLINE CHLORIDE 200 MG/10 ML VIAL IV ONE (13:14)
[2023-05-08] MEDS ORDERED: ROCURONIUM 10 MG/ML (5 ML VIAL) IV ONE (13:14)
[2023-05-08] MEDS ORDERED: fentaNYL (PF) 50 MCG/ML 2 ML AMP ONE (13:14)
[2023-05-08] MEDS ORDERED: PROPOFOL 10 MG/ML 20 ML VIAL IV ONE (13:14)
[2023-05-08] MEDS ORDERED: NEOSTIGMINE 1 MG/ML 10 ML VIAL ONE (13:14)
[2023-05-08] MEDS ORDERED: ceFAZolin 2 GM in SODIUM CHLORIDE 0.9% 500 ML 500 ML IRRIGATION ONE (13:45)
[2023-05-08] MEDS ORDERED: VANCOMYCIN TROUGH DUE 1 EACH MISC MISCELLANE ONE (14:00)
[2023-05-08] MEDS ORDERED: HYDROmorphone 1 MG/ML 1 ML SYRINGE IVP ONE (14:55)
[2023-05-08] MEDS: fentaNYL (PF) 50 MCG/ML 2 ML AMP IVP ONE ×2 (15:00→15:46)
--- NOTE | 2023-05-08 15:00 | P.OP ---
Date of Procedure: 05/08/23 Description of Procedure: PREOPERATIVE DIAGNOSIS: Nonhealing left lower extremity wound, peripheral arterial disease. POSTOPERATIVE DIAGNOSIS: Same OPERATION: Left below knee amputation. SURGEON: Viridiana Arora DO SOLUTION ENGINEER: Milana ANESTHESIA: Gen. endotracheal ESTIMATED BLOOD LOSS: 150 mL SPECIMENS REMOVED: Left lower extremity COMPLICATIONS: None immediately apparent CONDITION: Stable to recovery FINDINGS AND INDICATIONS: Patient is a 62-year-old male who nonhealing left lower extremity wound and infrapopliteal/tibial artery disease. After long discussion about possible options the patient asked if he could go forward with a below-knee amputation. Given all the options he seemingly understood the risks and benefits. He was willing to proceed. PROCEDURE IN DETAIL: The patient was brought to the operating room, the operative leg was prepped and draped in the usual sterile manner. 12 cm below the tibial plateau was marked. The calf circumference was measured. Two thirds was utilized for the anterior incision, one third was utilized to create the flap. The incision was marked. The incision was deepened through the subcutaneous tissue and fascia to the level of the bone. The fascia was transected around the level of the incision. Anterior compartment muscles were divided and visualized to the tibial vessels which were suture ligated with 2-0 silk. Then the lateral compartment muscles were divided. Dissection was carried down to the level of the bone. The periosteal elevator was used and the tibia was freed from its periosteal tissues. The tibia was divided with an oscillating saw. The same was done of the fibula, approximately 1-1/2-2 cm more proximal to the tibia itself. The posterior flap was created with an amputation knife. Bleeding was controlled with suture ligation of the vessels. Electrocautery was also used for hemostasis. The specimen was removed. The wound was copiously irrigated. The tibia and fibula were smoothed with a rasp. 2-0 and 3-0 Vicryl was utilized to approximate the fascia. The skin was reapproximated with herberth. The incsion was cleansed and a dressing was placed. The patient was extubated and transferred to PACU in stable condition having tolerated the procedure well
[2023-05-08] MEDS: MIDAZOLAM 2 MG/2 ML VIAL IVP ONE ×2 (15:08→15:21)
[2023-05-08] MEDS: MEPERIDINE 50 MG/ML SYRINGE IVP ONE ×2 (16:00→16:09)
--- NOTE | 2023-05-08 16:43 | P.PN ---
Subjective Progress Note Date: 05/08/23 Principal diagnosis: Left foot wound and cellulitis Patient is a 62-year-old male with a past medical history significant for diabetes mellitus hypertension hyperlipidemia DVT COPD patient presenting to the hospital with worsening pain swelling redness to the left foot , patient with a chronic nonhealing wound to the left foot and did have history of PAD. On today's evaluation that is 05/08/2023, the patient remains to be afebrile, the patient is breathing comfortably , the patient denies chest pain and no significant cough, the patient denies nausea and vomiting no abdominal pain and no diarrhea, the patient pain to the left foot with some improvement of the pain medication. Patient white count normalized to 9.07, creatinine 0.7 as of 05/07/2023 local cultures currently growing Proteus Objective - Vital Signs Vital signs: Vital Signs Temp 97.7 F 05/08/23 12:15 Pulse 63 05/08/23 12:50 Resp 16 05/08/23 12:50 BP 158/75 05/08/23 12:50 Pulse Ox 96 05/08/23 12:50 FiO2 Intake & Output 05/07/23 05/08/23 05/08/23 18:59 06:59 18:59 Intake Total 1300 400 Output Total 300 725 Balance 1000 400 -725 Intake: Intake, IV Titration 1300 Amount Cefepime 2 gm In Sodium 200 Chloride 0.9% 100 ml @ 200 mls/hr IVPB Q8H [facility] Rx#:[id number] Sodium Chloride 0.9% 1, 600 000 ml @ 75 mls/hr IV . [id number] [facility] Rx#:[id number] Vancomycin 2,000 mg In 500 Sodium Chloride 0.9% 500 ml 500 ml @ 167 mls/hr IVPB Q12H [facility] Rx#: [id number] Oral 400 Output: Urine 725 Emesis 300 Other: Voiding Method Urinal # Voids 3 2 1 - Exam GENERAL DESCRIPTION: Middle-aged male lying in bed in no distress RESPIRATORY SYSTEM: Unlabored breathing , decreased breath sounds at bases HEART: S1 S2 regular rate and rhythm , ABDOMEN: Soft , no tenderness EXTREMITIES: Left foot wound with some slough tissue no foul-smelling drainage - Labs CBC & Chem 7: 05/07/23 05:51 05/07/23 05:51 Labs: Abnormal Lab Results - Last 24 Hours (Table) 05/07/23 05/07/23 05/08/23 Range/Units 17:26 20:40 07:16 POC Glucose (mg/dL) 219 H 189 H 136 H (70-110) mg/dL 05/08/23 Range/Units 11:50 POC Glucose (mg/dL) 147 H (70-110) mg/dL Microbiology - Last 24 Hours (Table) 05/06/23 01:10 Blood Culture - Preliminary Blood 05/06/23 01:26 Blood Culture - Preliminary Blood 05/06/23 01:39 Gram Stain - Preliminary Foot - Left Wound Culture - Preliminary Gram Neg Bacilli Assessment and Plan (1) Diabetic wet gangrene of the foot Current Visit: Yes Status: Acute Code(s): E11.52 - TYPE 2 DIABETES W DIABETIC PERIPHERAL ANGIOPATHY W GANGRENE SNOMED Code(s): 950597591 Plan: 1patient with a chronic nonhealing wound to the left foot previous amputation of the third and fourth toe now presenting presenting to the hospital with worsening pain did have evidence of low-grade fever elevated white count concerning for wound infection we will need to cover for both gram-positive as well as gram-negative pathogen. 2patient has been evaluated by vascular surgery awaiting debridement versus below the knee amputation 3patient local cultures did grew Proteus, and we will continue the patient on cefepime however discontinue vancomycin . Dictation was produced using [employer] dictation software. please excuse any gra mmatical, word or spelling errors. Time with Patient: Less than 30
[2023-05-08 16:58] LABS: Glucose,Whole Blood 207 mg/dL (70-110)
[2023-05-08] MEDS: HYDROcodone/APAP 10-325MG 1 EACH TAB PO PRN (17:09)
[2023-05-08] MEDS: KETOROLAC 15 MG/ML 1 ML VIAL IVP PRN (17:09)
[2023-05-08 18:45] LABS: African American GFR (CKD) >90 (>60 ml/min/1.73 sqM); Non-African American GFR(CKD) >90 (>60 ml/min/1.73 sqM)
[2023-05-08 20:16] LABS: Glucose,Whole Blood 200 mg/dL (70-110)
[2023-05-08] MEDS: ATORVASTATIN 80 MG TAB PO SCH (21:36)
[2023-05-09] MEDS: IPRATROPIUM-ALBUTEROL 3 ML NEB INHALATION PRN ×2 (00:19→04:06)
[2023-05-09] MEDS: CEFEPIME 2 GM in SODIUM CHLORIDE 0.9% 100 ML IVPB SCH ×2 (00:46→08:59)
[2023-05-09] MEDS: HYDROcodone/APAP 10-325MG 1 EACH TAB PO PRN ×4 (00:55→21:08)
[2023-05-09] MEDS: HYDROmorphone PCA 10 MG/50 ML BAG IV PRN ×2 (05:38→21:08)
--- NOTE | 2023-05-09 06:44 | P.PN ---
Subjective Progress Note Date: 05/08/23 Patient is a 62-year-old male with a known history of hypertension, hyperlipidemia, diabetes type 2 [id number], history of DVT on anticoagulation with Eliquis, COPD, current everyday smoker and depression and marijuana use presents to ER with complaints of left foot infection. Patient has chronic diabetic ulcer on the dorsum of first metatarsal of the left foot. Also has history of third and fourth ray amputations. Patient has been having bleeding wound and follow-up with wound care clinic. Over the last few days patient has been having worsening pain and purulent discharge. Patient presented to ER. Not on any current antibiotics at home. Patient was having fever with Tmax 100.2 on admission and also tachycardic with heart rate 111. Blood pressure is also elevated on admission. Laboratory showed WBC 11.7 hemoglobin 15.1 and platelets 321 Sodium 138 potassium 4.5 chloride 106 bicarb is 19 BUN 13 and creatinine 0.78 and blood sugar is 154 and lactic acid 2.7. Liver edge is not elevated. CRP level is 0.6 and ESR 16. 05/07/2023 Patient is seen and evaluated in follow-up this morning maintained on IV antibiotics with infectious disease and vascular surgery following. Patient is tentatively scheduled to undergo amputation possibly below the knee amputation of the left with Dr. Montes vascular surgery tomorrow and patient will be nothing by mouth at midnight. Patient continues to report severe 10/10 pain and have adjusted pain medications. Patient lost IV access and is a difficult stick and discussed further with infectious disease and will order PICC line as preliminary cultures are showing gram-negative and awaiting finalized cultures as patient may require IV antibiotics on discharge. Patient is currently afebrile and white count is normal at 9.07, other labs within normal limits and blood sugars are being monitored. Blood sugars well controlled on current regimen and will continue. Hemoglobin A1c is 8.1. 05/08/2023 Patient is seen and evaluated in follow-up today currently nothing by mouth as patient is scheduled to undergo left BKA. Patient is somewhat anxious reporting pain continues to be severe 10/10 and is also requesting a breathing treatment. Patient will continue on IV antibiotics and does have a PICC line with infectious disease following. Will await surgical report and also recommended PT/OT therapy. Patient is currently afebrile reported chest pain or shortness of breath. Review of systems: Constitutional: No reports of fatigue, fever, or chills Cardiovascular: No reports of chest pain or palpitations Respiratory: No reports of shortness of breath or cough GI: No reports of nausea, vomiting, or diarrhea : No reports of dysuria or retention Neurovascular: reports of generalized weakness , reports extreme left foot pain All medications have been reviewed PHYSICAL EXAMINATION: Patient is lying in the bed comfortably, slightly anxious, awake alert and oriented.. Obese HEENT: Normocephalic. Neck is supple. Pupils reactive. Nostrils clear. Oral cavity is moist. Neck reveals no JVD, carotid bruits, or thyromegaly. CHEST EXAMINATION: Trachea is central. Symmetrical expansion. Lung garcía clear to auscultation and percussion. CARDIAC: Normal S1, S2 with no gallops. No murmurs ABDOMEN: Soft. Bowel sounds present. Nontender. No organomegaly. No abdominal bruits. Extremities: reveal no edema. Patient does have ulcer measuring 8 x 3 cm over the left first metatarsal region. No clubbing or cyanosis Neurologically awake, alert, oriented x3 with well-coordinated movements. No focal deficits noted Skin: No rash or skin lesions. Psychiatric: Cooperative. Non-suicidal Musculoskeletal: No joint swelling or deformity. Normal range of motion. Assessment: Diabetic left foot ulcer with infection over the dorsum of the first metatarsal, nonhealing. Sepsis secondary to above Peripheral vascular disease with prior history of left third and fourth toe amputation Lactic acidosis, resolved. Diabetes type 2 [id number] History of DVT on anticoagulation Hypertension Hyperlipidemia Current everyday smoker Obesity with BMI of 35.7 GI prophylaxis DVT prophylaxis. Eliquis is on hold for possible surgical intervention. Full code Plan: Patient is currently maintained on IV antibiotics in the form of cefepime and vancomycin with infectious disease following. Vascular surgery Dr. Arora following for left below the knee amputation today. Currently nothing by mouth and will await surgical report Continue with pain management and have increased [place] as patient was recently started on [place] tens in the outpatient setting by primary care provider and patient is reporting his pain is severe . Would recommend discontinuing pain pump post surgery Patient will be continued on IV hydration with normal saline. Follow-up labs ordered for a.m. Patient does have a PICC line in the event he may require IV antibiotics on discharge. Will discuss further with infectious disease on treatment plan moving forward post surgery Recommend PT/OT therapy evaluation after surgery Continue with pain management with Dilaudid. Home medications reviewed and resumed Continue insulin sliding scale an continue to monitor Accu-Cheks before meals and at bedtime Prognosis is guarded The impression and plan of care has been dictated by Lillie Matt, Nurse Practitioner as directed. Dr. Odalis MD I have performed a history and examination and MDM of this patient, discussed t he same with the dictator, and agree with the dictator's assessment and plan as written ,documented as a scribe. Based on total visit time, I have performed more than 50% of the visit. Objective - Vital Signs Vital signs: Vital Signs Temp 99.2 F 05/08/23 08:00 Pulse 68 05/08/23 08:00 Resp 17 05/08/23 08:00 BP 129/69 05/08/23 08:00 Pulse Ox 96 05/08/23 08:00 FiO2 Intake & Output 05/07/23 05/08/23 05/08/23 18:59 06:59 18:59 Intake Total 1300 400 Output Total 300 575 Balance 1000 400 -575 Intake: Intake, IV Titration 1300 Amount Cefepime 2 gm In Sodium 200 Chloride 0.9% 100 ml @ 200 mls/hr IVPB Q8H [facility] Rx#:[id number] Sodium Chloride 0.9% 1, 600 000 ml @ 75 mls/hr IV . [id number] [facility] Rx#:[id number] Vancomycin 2,000 mg In 500 Sodium Chloride 0.9% 500 ml 500 ml @ 167 mls/hr IVPB Q12H [facility] Rx#: [id number] Oral 400 Output: Urine 575 Emesis 300 Other: Voiding Method Urinal # Voids 3 2 1 - Labs CBC & Chem 7: 05/07/23 05:51 05/08/23 17:50 Labs: Abnormal Lab Results - Last 24 Hours (Table) 05/07/23 05/07/23 05/07/23 Range/Units 12:43 17:26 20:40 POC Glucose (mg/dL) 145 H 219 H 189 H (70-110) mg/dL 05/08/23 Range/Units 07:16 POC Glucose (mg/dL) 136 H (70-110) mg/dL Microbiology - Last 24 Hours (Table) 05/06/23 01:10 Blood Culture - Preliminary Blood 05/06/23 01:26 Blood Culture - Preliminary Blood 05/06/23 01:39 Gram Stain - Preliminary Foot - Left Wound Culture - Preliminary Gram Neg Bacilli
[2023-05-09 07:41] LABS: Glucose,Whole Blood 135 mg/dL (70-110)
[2023-05-09] MEDS: INSULIN ASPART (NovoLOG) 100 UNIT/ML VIAL SQ SCH ×4 (07:55→21:09)
[2023-05-09] MEDS: IPRATROPIUM-ALBUTEROL 3 ML NEB INHALATION SCH ×4 (08:04→20:39)
[2023-05-09] MEDS: buPROPion SR 150 MG TABLET.ER PO SCH ×2 (08:58→21:08)
[2023-05-09] MEDS: DULoxetine HCL 30 MG CAPSULE.DR PO SCH (08:58)
[2023-05-09] MEDS: GABAPENTIN 300 MG CAP PO SCH ×3 (08:59→21:09)
[2023-05-09] MEDS: METOPROLOL TARTRATE 50 MG TAB PO SCH ×2 (08:59→21:09)
[2023-05-09] MEDS: LOSARTAN 50 MG TAB PO SCH (08:59)
[2023-05-09 11:25] LABS: Basophils # (A) 0.01 X 10*3/uL (0.00-0.10); Basophils % (A) 0.1 %; Eosinophils # (A) 0.07 X 10*3/uL (0.04-0.35); Eosinophils % (A) 0.7 %; HCT 32.4 % (39.6-50.0); HGB 10.7 d/dL (13.0-17.0); Lymphocytes # (A) 2.04 X 10*3/uL (0.90-5.00); Lymphocytes % (A) 19.2 %; MCH 32.3 pg (27.0-32.0); MCV 97.9 FL (80.0-97.0); Mean Platelet Volume 9.7 FL (9.5-12.2); Monocytes # (A) 0.82 X 10*3/uL (0.20-1.00); Monocytes % (A) 7.7 %; NRBC Per 100 WBC 0 X 10*3/uL (0.00-0.01); Neutrophils # (A) 7.64 X 10*3/uL (1.80-7.70); Neutrophils % (A) 72.1 %; Platelet Count 271 X 10*3/uL (140-440); RBC 3.31 X 10*6/uL (4.40-5.60); RDW 11.9 % (11.5-14.5)
[2023-05-09 11:29] LABS: BUN/Creat Ratio 18.33 Ratio (12.00-20.00); Blood Urea Nitrogen 16.5 mg/dL (9.0-27.0); Calcium 9.2 mg/dL (8.7-10.3); Carbon Dioxide 24.5 mmol/L (21.6-31.8); Chloride 103 mmol/L (96-109); Glucose 128 mg/dL (70-110); Magnesium 1.8 mg/dL (1.5-2.4); Potassium 4.7 mmol/L (3.5-5.5); Sodium 138 mmol/L (135-145)
[2023-05-09 11:45] LABS: Glucose,Whole Blood 180 mg/dL (70-110)
[2023-05-09] MEDS: LACTATED RINGERS 1,000 ML IV SCH (12:25)
--- NOTE | 2023-05-09 13:02 | P.PN ---
Subjective Progress Note Date: 05/09/23 Principal diagnosis: Left foot wound and cellulitis Patient is a 62-year-old male with a past medical history significant for diabetes mellitus hypertension hyperlipidemia DVT COPD patient presenting to the hospital with worsening pain swelling redness to the left foot , patient with a chronic nonhealing wound to the left foot and did have history of PAD. Patient is status post left xvwai-ski-tvro amputation completed on 05/08/2023 On today's evaluation that is 05/09/2023, the patient denies any fever or any chills, the patient is breathing comfortably , the patient denies chest pain and no significant cough, the patient denies nausea and vomiting no abdominal pain and no diarrhea, patient pain to the left BKA stump controlled with the pain medication. Patient white count of 10.60, creatinine 0.9, local cultures currently growing Proteus, blood culture negative Objective - Vital Signs Vital signs: Vital Signs Temp 97.7 F 05/09/23 11:28 Pulse 75 05/09/23 11:40 Resp 18 05/09/23 11:28 BP 130/63 05/09/23 11:28 Pulse Ox 100 05/09/23 11:28 FiO2 Intake & Output 05/08/23 05/09/23 05/09/23 18:59 06:59 18:59 Intake Total 1501 Output Total 875 1 Balance 626 -1 Weight 106.594 kg Intake: IV 601 Intake, IV Titration 900 Amount Sodium Chloride 0.9% 1, 900 000 ml @ 75 mls/hr IV . [id number] [facility] Rx#:[id number] Output: Urine 725 1 Estimated Blood Loss 150 Other: Voiding Method Urinal Bedside Commode Urinal # Voids 1 - Exam GENERAL DESCRIPTION: Middle-aged male lying in bed in no distress RESPIRATORY SYSTEM: Unlabored breathing , decreased breath sounds at bases HEART: S1 S2 regular rate and rhythm , ABDOMEN: Soft , no tenderness EXTREMITIES: Left foot wound with some slough tissue no foul-smelling drainage - Labs CBC & Chem 7: 05/09/23 06:06 05/09/23 06:06 Labs: Abnormal Lab Results - Last 24 Hours (Table) 05/08/23 05/08/23 05/09/23 Range/Units 16:57 20:15 06:06 WBC (4.50-10.00) X 10*3/uL RBC (4.40-5.60) X 10*6/uL Hgb (13.0-17.0) d/dL Hct (39.6-50.0) % MCV (80.0-97.0) FL MCH (27.0-32.0) pg Glucose 128 H (70-110) mg/dL POC Glucose (mg/dL) 207 H 200 H (70-110) mg/dL 05/09/23 05/09/23 05/09/23 Range/Units 06:06 07:26 11:32 WBC 10.60 H (4.50-10.00) X 10*3/uL RBC 3.31 L (4.40-5.60) X 10*6/uL Hgb 10.7 L (13.0-17.0) d/dL Hct 32.4 L (39.6-50.0) % MCV 97.9 H (80.0-97.0) FL MCH 32.3 H (27.0-32.0) pg Glucose (70-110) mg/dL POC Glucose (mg/dL) 135 H 180 H (70-110) mg/dL Microbiology - Last 24 Hours (Table) 05/06/23 01:39 Gram Stain - Final Foot - Left Wound Culture - Final Proteus mirabilis 05/06/23 01:10 Blood Culture - Preliminary Blood 05/06/23 01:26 Blood Culture - Preliminary Blood Assessment and Plan (1) Diabetic wet gangrene of the foot Current Visit: Yes Status: Acute Code(s): E11.52 - TYPE 2 DIABETES W DIABETIC PERIPHERAL ANGIOPATHY W GANGRENE SNOMED Code(s): 269649519 Plan: 1patient with a chronic nonhealing wound to the left foot previous amputation of the third and fourth toe now presenting presenting to the hospital with worsening pain did have evidence of low-grade fever elevated white count concerning for wound infection we will need to cover for both gram-positive as well as gram-negative pathogen. 2patient has been evaluated by vascular surgery awaiting debridement versus below the knee amputation 3patient local cultures did grew Proteus, we will discontinue cefepime, start patient Rocephin 2 g daily Dictation was produced using [employer] software. please excuse any grammatical, word or spelling errors. Time with Patient: Less than 30
--- NOTE | 2023-05-09 14:35 | P.PN ---
Subjective Progress Note Date: 05/09/23 Principal diagnosis: gangrene, s/p left BKA patient and examined. Doing well. Only complaints are numbness and phantom pain of the foot. He denies any fevers, chills, chest pain or shortness of breath. Objective - Vital Signs Vital signs: Vital Signs Temp 97.7 F 05/09/23 11:28 Pulse 75 05/09/23 11:40 Resp 18 05/09/23 11:28 BP 130/63 05/09/23 11:28 Pulse Ox 100 05/09/23 11:28 FiO2 Intake & Output 05/08/23 05/09/23 05/09/23 18:59 06:59 18:59 Intake Total 1501 Output Total 875 1 Balance 626 -1 Weight 106.594 kg Intake: IV 601 Intake, IV Titration 900 Amount Sodium Chloride 0.9% 1, 900 000 ml @ 75 mls/hr IV . [id number] ADRIENNE Rx#:[id number] Output: Urine 725 1 Estimated Blood Loss 150 Other: Voiding Method Urinal Bedside Commode Urinal # Voids 1 - Exam Sitting on the side of the bed. NAD, A&Ox3 left BKA site with dressings in place. Mild tenderness to palpation. - Labs CBC & Chem 7: 05/09/23 06:06 05/09/23 06:06 Labs: Abnormal Lab Results - Last 24 Hours (Table) 05/08/23 05/08/23 05/09/23 Range/Units 16:57 20:15 06:06 WBC (4.50-10.00) X 10*3/uL RBC (4.40-5.60) X 10*6/uL Hgb (13.0-17.0) d/dL Hct (39.6-50.0) % MCV (80.0-97.0) FL MCH (27.0-32.0) pg Glucose 128 H (70-110) mg/dL POC Glucose (mg/dL) 207 H 200 H (70-110) mg/dL 05/09/23 05/09/23 05/09/23 Range/Units 06:06 07:26 11:32 WBC 10.60 H (4.50-10.00) X 10*3/uL RBC 3.31 L (4.40-5.60) X 10*6/uL Hgb 10.7 L (13.0-17.0) d/dL Hct 32.4 L (39.6-50.0) % MCV 97.9 H (80.0-97.0) FL MCH 32.3 H (27.0-32.0) pg Glucose (70-110) mg/dL POC Glucose (mg/dL) 135 H 180 H (70-110) mg/dL Microbiology - Last 24 Hours (Table) 05/06/23 01:10 Blood Culture - Preliminary Blood 05/06/23 01:26 Blood Culture - Preliminary Blood 05/06/23 01:39 Gram Stain - Final Foot - Left Wound Culture - Final Proteus mirabilis Assessment and Plan Assessment: Non healing left lower extremity wounds S/P left below knee amputation Plan: Continue antibiotics per ID Continue IV/PO pain control If patient continues to complain of phantom pain then will start Neurontin. Dressings to be changed in 24-48 hours. Will have prosthetic company called to place hard dressings.
[2023-05-09] MEDS ORDERED: polyethylene glycoL 3350 17 GM POWD.PACK PO STA (15:03)
[2023-05-09] MEDS: SENNOSIDES 8.6 MG TAB PO SCH (15:17)
[2023-05-09 17:19] LABS: Glucose,Whole Blood 192 mg/dL (70-110)
[2023-05-09] MEDS: NICOTINE 14MG/24HR PATCH TRANSDERM SCH (17:41)
[2023-05-09 20:09] LABS: Glucose,Whole Blood 208 mg/dL (70-110)
[2023-05-09] MEDS: ATORVASTATIN 80 MG TAB PO SCH (21:08)
[2023-05-10] MEDS: HYDROcodone/APAP 10-325MG 1 EACH TAB PO PRN ×4 (03:07→22:21)
[2023-05-10] MEDS: IPRATROPIUM-ALBUTEROL 3 ML NEB INHALATION PRN (04:09)
[2023-05-10 06:41] LABS: African American GFR (CKD) >90 (>60 ml/min/1.73 sqM); Anion Gap 4 mmol/L; Blood Urea Nitrogen 13 mg/dL (9-20); Calcium 8.6 mg/dL (8.4-10.2); Carbon Dioxide 26 mmol/L (22-30); Chloride 106 mmol/L (98-107); Glucose 154 mg/dL (74-99); Non-African American GFR(CKD) >90 (>60 ml/min/1.73 sqM); Potassium 3.7 mmol/L (3.5-5.1); Sodium 136 mmol/L (137-145)
[2023-05-10 07:48] LABS: Glucose,Whole Blood 161 mg/dL (70-110)
[2023-05-10] MEDS: IPRATROPIUM-ALBUTEROL 3 ML NEB INHALATION SCH ×4 (08:10→20:38)
[2023-05-10] MEDS: INSULIN ASPART (NovoLOG) 100 UNIT/ML VIAL SQ SCH ×4 (08:28→20:50)
[2023-05-10] MEDS: buPROPion SR 150 MG TABLET.ER PO SCH ×2 (08:28→20:49)
[2023-05-10] MEDS: GABAPENTIN 300 MG CAP PO SCH ×3 (08:29→20:50)
[2023-05-10] MEDS: SENNOSIDES 8.6 MG TAB PO SCH (08:29)
[2023-05-10] MEDS: METOPROLOL TARTRATE 50 MG TAB PO SCH ×2 (08:29→20:50)
[2023-05-10] MEDS: LOSARTAN 50 MG TAB PO SCH (08:29)
[2023-05-10] MEDS: NICOTINE 14MG/24HR PATCH TRANSDERM SCH (08:29)
[2023-05-10] MEDS: DULoxetine HCL 30 MG CAPSULE.DR PO SCH (08:29)
[2023-05-10 10:28] LABS: Basophils # (A) 0.06 X 10*3/uL (0.00-0.10); Basophils % (A) 0.6 %; Eosinophils # (A) 0.41 X 10*3/uL (0.04-0.35); Eosinophils % (A) 4.3 %; HCT 30.9 % (39.6-50.0); HGB 10.4 d/dL (13.0-17.0); Lymphocytes # (A) 2.28 X 10*3/uL (0.90-5.00); MCH 32.2 pg (27.0-32.0); MCHC 33.7 d/dL (32.0-37.0); MCV 95.7 FL (80.0-97.0); Mean Platelet Volume 9.8 FL (9.5-12.2); Monocytes % (A) 9.5 %; NRBC Per 100 WBC 0 X 10*3/uL (0.00-0.01); Neutrophils # (A) 5.83 X 10*3/uL (1.80-7.70); Neutrophils % (A) 61.4 %; Platelet Count 263 X 10*3/uL (140-440); RBC 3.23 X 10*6/uL (4.40-5.60); RDW 11.9 % (11.5-14.5)
[2023-05-10] MEDS: HYDROmorphone PCA 10 MG/50 ML BAG IV PRN (10:47)
--- NOTE | 2023-05-10 11:39 | P.PN ---
Subjective Progress Note Date: 05/10/23 Principal diagnosis: Left foot wound and cellulitis Patient is a 62-year-old male with a past medical history significant for diabetes mellitus hypertension hyperlipidemia DVT COPD patient presenting to the hospital with worsening pain swelling redness to the left foot , patient with a chronic nonhealing wound to the left foot and did have history of PAD. Patient is status post left [id number] amputation completed on 05/08/2023 On today's evaluation that is 05/10/2023, the patient remains to be afebrile, the patient is breathing comfortably , the patient denies chest pain or cough , the patient denies nausea or vomiting , patient denies abdominal pain and no diarrhea has been reported, patient still complaining of significant pain to the left BKA stump is currently on a HEALTH INFORMATION TECH Patient white count is normal at 9.50 creatinine 0.68 , left foot culture posit adarsh for Proteus, blood culture were negative Objective - Vital Signs Vital signs: Vital Signs Temp 98.4 F 05/10/23 07:26 Pulse 72 05/10/23 08:23 Resp 18 05/10/23 07:26 BP 174/81 05/10/23 07:26 Pulse Ox 94 L 05/10/23 07:26 FiO2 Intake & Output 05/09/23 05/10/23 05/10/23 18:59 06:59 18:59 Output Total 2 Balance -2 Output: Urine 2 Other: Voiding Method Urinal Bedside Commode Urinal # Voids 300 - Exam GENERAL DESCRIPTION: Middle-aged male lying in bed in no distress RESPIRATORY SYSTEM: Unlabored breathing , decreased breath sounds at bases HEART: S1 S2 regular rate and rhythm , ABDOMEN: Soft , no tenderness EXTREMITIES: Left BKA stump is currently dressed with OR dressing - Labs CBC & Chem 7: 05/10/23 05:48 05/10/23 05:48 Labs: Abnormal Lab Results - Last 24 Hours (Table) 05/09/23 05/09/23 05/09/23 Range/Units 11:32 17:17 20:08 RBC (4.40-5.60) X 10*6/uL Hgb (13.0-17.0) d/dL Hct (39.6-50.0) % MCH (27.0-32.0) pg Eosinophils # (0.04-0.35) X 10*3/uL Sodium (137-145) mmol/L Glucose (74-99) mg/dL POC Glucose (mg/dL) 180 H 192 H 208 H (70-110) mg/dL 05/10/23 05/10/23 05/10/23 Range/Units 05:48 05:48 07:29 RBC 3.23 L (4.40-5.60) X 10*6/uL Hgb 10.4 L (13.0-17.0) d/dL Hct 30.9 L (39.6-50.0) % MCH 32.2 H (27.0-32.0) pg Eosinophils # 0.41 H (0.04-0.35) X 10*3/uL Sodium 136 L (137-145) mmol/L Glucose 154 H (74-99) mg/dL POC Glucose (mg/dL) 161 H (70-110) mg/dL Microbiology - Last 24 Hours (Table) 05/06/23 01:10 Blood Culture - Preliminary Blood 05/06/23 01:26 Blood Culture - Preliminary Blood Assessment and Plan (1) Diabetic wet gangrene of the foot Current Visit: Yes Status: Acute Code(s): E11.52 - TYPE 2 DIABETES W DIABETIC PERIPHERAL ANGIOPATHY W GANGRENE SNOMED Code(s): 623097636 Plan: 1patient with a chronic nonhealing wound to the left foot previous amputation of the third and fourth toe now presenting presenting to the hospital with worsening pain did have evidence of low-grade fever elevated white count concerning for wound infection we will need to cover for both gram-positive as w ell as gram-negative pathogen. 2patient is status post left below the knee amputation 3patient local cultures did grew Proteus, patient to continue with Rocephin 2 g daily and monitor clinical course closely Dictation was produced using [employer] dictation software. please excuse any grammatical, word or spelling errors. Time with Patient: Less than 30
[2023-05-10 11:50] LABS: Glucose,Whole Blood 185 mg/dL (70-110)
[2023-05-10] MEDS: LACTATED RINGERS 1,000 ML IV SCH (13:28)
[2023-05-10 17:02] LABS: Glucose,Whole Blood 145 mg/dL (70-110)
[2023-05-10 20:28] LABS: Glucose,Whole Blood 185 mg/dL (70-110)
[2023-05-10] MEDS: ATORVASTATIN 80 MG TAB PO SCH (20:50)
[2023-05-11] MEDS: HYDROmorphone PCA 10 MG/50 ML BAG IV PRN (01:51)
[2023-05-11] MEDS: IPRATROPIUM-ALBUTEROL 3 ML NEB INHALATION PRN ×2 (02:01→05:57)
--- NOTE | 2023-05-11 02:56 | P.PN ---
Subjective Progress Note Date: 05/09/23 Patient is a 62-year-old male with a known history of hypertension, hyperlipidemia, diabetes type 2 [id number], history of DVT on anticoagulation with Eliquis, COPD, current everyday smoker and depression and marijuana use presents to ER with complaints of left foot infection. Patient has chronic diabetic ulcer on the dorsum of first metatarsal of the left foot. Also has history of third and fourth ray amputations. Patient has been having bleeding wound and follow-up with wound care clinic. Over the last few days patient has been having worsening pain and purulent discharge. Patient presented to ER. Not on any current antibiotics at home. Patient was having fever with Tmax 100.2 on admission and also tachycardic with heart rate 111. Blood pressure is also elevated on admission. Laboratory showed WBC 11.7 hemoglobin 15.1 and platelets 321 Sodium 138 potassium 4.5 chloride 106 bicarb is 19 BUN 13 and creatinine 0.78 and blood sugar is 154 and lactic acid 2.7. Liver edge is not elevated. CRP level is 0.6 and ESR 16. 05/07/2023 Patient is seen and evaluated in follow-up this morning maintained on IV antibiotics with infectious disease and vascular surgery following. Patient is tentatively scheduled to undergo amputation possibly below the knee amputation of the left with Dr. Montes vascular surgery tomorrow and patient will be nothing by mouth at midnight. Patient continues to report severe 10/10 pain and have adjusted pain medications. Patient lost IV access and is a difficult stick and discussed further with infectious disease and will order PICC line as preliminary cultures are showing gram-negative and awaiting finalized cultures as patient may require IV antibiotics on discharge. Patient is currently afebrile and white count is normal at 9.07, other labs within normal limits and blood sugars are being monitored. Blood sugars well controlled on current regimen and will continue. Hemoglobin A1c is 8.1. 05/08/2023 Patient is seen and evaluated in follow-up today currently nothing by mouth as patient is scheduled to undergo left BKA. Patient is somewhat anxious reporting pain continues to be severe 10/10 and is also requesting a breathing treatment. Patient will continue on IV antibiotics and does have a PICC line with infectious disease following. Will await surgical report and also recommended PT/OT therapy. Patient is currently afebrile reported chest pain or shortness of breath. Review of systems: Constitutional: No reports of fatigue, fever, or chills Cardiovascular: No reports of chest pain or palpitations Respiratory: No reports of shortness of breath or cough GI: No reports of nausea, vomiting, or diarrhea : No reports of dysuria or retention Neurovascular: reports of generalized weakness , reports extreme left foot pain All medications have been reviewed PHYSICAL EXAMINATION: Patient is lying in the bed comfortably, slightly anxious, awake alert and oriented.. Obese HEENT: Normocephalic. Neck is supple. Pupils reactive. Nostrils clear. Oral cavity is moist. Neck reveals no JVD, carotid bruits, or thyromegaly. CHEST EXAMINATION: Trachea is central. Symmetrical expansion. Lung garcía clear to auscultation and percussion. CARDIAC: Normal S1, S2 with no gallops. No murmurs ABDOMEN: Soft. Bowel sounds present. Nontender. No organomegaly. No abdominal bruits. Extremities: reveal no edema. Patient does have ulcer measuring 8 x 3 cm over the left first metatarsal region. No clubbing or cyanosis Neurologically awake, alert, oriented x3 with well-coordinated movements. No focal deficits noted Skin: No rash or skin lesions. Psychiatric: Cooperative. Non-suicidal Musculoskeletal: No joint swelling or deformity. Normal range of motion. Assessment: Diabetic left foot ulcer with infection over the dorsum of the first metatarsal, nonhealing. Sepsis secondary to above Peripheral vascular disease with prior history of left third and fourth toe amputation Lactic acidosis, resolved. Diabetes type 2 [id number] History of DVT on anticoagulation Hypertension Hyperlipidemia Current everyday smoker Obesity with BMI of 35.7 GI prophylaxis DVT prophylaxis. Eliquis is on hold for possible surgical intervention. Full code Plan: Patient is currently maintained on IV antibiotics in the form of cefepime and vancomycin with infectious disease following. Vascular surgery Dr. Arora following for left below the knee amputation today. Currently nothing by mouth and will await surgical report Continue with pain management and have increased [place] as patient was recently started on [place] tens in the outpatient setting by primary care provider and patient is reporting his pain is severe . Would recommend discontinuing pain pump post surgery Patient will be continued on IV hydration with normal saline. Follow-up labs ordered for a.m. Patient does have a PICC line in the event he may require IV antibiotics on discharge. Will discuss further with infectious disease on treatment plan moving forward post surgery Recommend PT/OT therapy evaluation after surgery Continue with pain management with Dilaudid. Home medications reviewed and resumed Continue insulin sliding scale an continue to monitor Accu-Cheks before meals and at bedtime Prognosis is guarded Objective - Vital Signs Vital signs: Vital Signs Temp 97.7 F 05/09/23 11:28 Pulse 76 05/09/23 15:52 Resp 18 05/09/23 11:28 BP 130/63 05/09/23 11:28 Pulse Ox 100 05/09/23 11:28 FiO2 Intake & Output 05/09/23 05/09/23 05/10/23 06:59 18:59 06:59 Output Total 1 Balance -1 Output: Urine 1 Other: Voiding Method Bedside Commode Urinal - Labs CBC & Chem 7: 05/10/23 05:48 05/10/23 05:48 Labs: Abnormal Lab Results - Last 24 Hours (Table) 05/08/23 05/09/23 05/09/23 Range/Units 20:15 06:06 06:06 WBC 10.60 H (4.50-10.00) X 10*3/uL RBC 3.31 L (4.40-5.60) X 10*6/uL Hgb 10.7 L (13.0-17.0) d/dL Hct 32.4 L (39.6-50.0) % MCV 97.9 H (80.0-97.0) FL MCH 32.3 H (27.0-32.0) pg Glucose 128 H (70-110) mg/dL POC Glucose (mg/dL) 200 H (70-110) mg/dL 05/09/23 05/09/23 05/09/23 Range/Units 07:26 11:32 17:17 WBC (4.50-10.00) X 10*3/uL RBC (4.40-5.60) X 10*6/uL Hgb (13.0-17.0) d/dL Hct (39.6-50.0) % MCV (80.0-97.0) FL MCH (27.0-32.0) pg Glucose (70-110) mg/dL POC Glucose (mg/dL) 135 H 180 H 192 H (70-110) mg/dL Microbiology - Last 24 Hours (Table) 05/06/23 01:10 Blood Culture - Preliminary Blood 05/06/23 01:26 Blood Culture - Preliminary Blood
--- NOTE | 2023-05-11 02:56 | P.PN ---
Subjective Progress Note Date: 05/10/23 Patient is a 62-year-old male with a known history of hypertension, hyperlipidemia, diabetes type 2 [id number], history of DVT on anticoagulation with Eliquis, COPD, current everyday smoker and depression and marijuana use presents to ER with complaints of left foot infection. Patient has chronic diabetic ulcer on the dorsum of first metatarsal of the left foot. Also has history of third and fourth ray amputations. Patient has been having bleeding wound and follow-up with wound care clinic. Over the last few days patient has been having worsening pain and purulent discharge. Patient presented to ER. Not on any current antibiotics at home. Patient was having fever with Tmax 100.2 on admission and also tachycardic with heart rate 111. Blood pressure is also elevated on admission. Laboratory showed WBC 11.7 hemoglobin 15.1 and platelets 321 Sodium 138 potassium 4.5 chloride 106 bicarb is 19 BUN 13 and creatinine 0.78 and blood sugar is 154 and lactic acid 2.7. Liver edge is not elevated. CRP level is 0.6 and ESR 16. 05/07/2023 Patient is seen and evaluated in follow-up this morning maintained on IV antibiotics with infectious disease and vascular surgery following. Patient is tentatively scheduled to undergo amputation possibly below the knee amputation of the left with Dr. Montes vascular surgery tomorrow and patient will be nothing by mouth at midnight. Patient continues to report severe 10/10 pain and have adjusted pain medications. Patient lost IV access and is a difficult stick and discussed further with infectious disease and will order PICC line as preliminary cultures are showing gram-negative and awaiting finalized cultures as patient may require IV antibiotics on discharge. Patient is currently afebrile and white count is normal at 9.07, other labs within normal limits and blood sugars are being monitored. Blood sugars well controlled on current regimen and will continue. Hemoglobin A1c is 8.1. 05/08/2023 Patient is seen and evaluated in follow-up today currently nothing by mouth as patient is scheduled to undergo left BKA. Patient is somewhat anxious reporting pain continues to be severe 10/10 and is also requesting a breathing treatment. Patient will continue on IV antibiotics and does have a PICC line with infectious disease following. Will await surgical report and also recommended PT/OT therapy. Patient is currently afebrile reported chest pain or shortness of breath. Review of systems: Constitutional: No reports of fatigue, fever, or chills Cardiovascular: No reports of chest pain or palpitations Respiratory: No reports of shortness of breath or cough GI: No reports of nausea, vomiting, or diarrhea : No reports of dysuria or retention Neurovascular: reports of generalized weakness , reports extreme left foot pain All medications have been reviewed PHYSICAL EXAMINATION: Patient is lying in the bed comfortably, slightly anxious, awake alert and oriented.. Obese HEENT: Normocephalic. Neck is supple. Pupils reactive. Nostrils clear. Oral cavity is moist. Neck reveals no JVD, carotid bruits, or thyromegaly. CHEST EXAMINATION: Trachea is central. Symmetrical expansion. Lung garcía clear to auscultation and percussion. CARDIAC: Normal S1, S2 with no gallops. No murmurs ABDOMEN: Soft. Bowel sounds present. Nontender. No organomegaly. No abdominal bruits. Extremities: reveal no edema. Patient does have ulcer measuring 8 x 3 cm over the left first metatarsal region. No clubbing or cyanosis Neurologically awake, alert, oriented x3 with well-coordinated movements. No focal deficits noted Skin: No rash or skin lesions. Psychiatric: Cooperative. Non-suicidal Musculoskeletal: No joint swelling or deformity. Normal range of motion. Assessment: Diabetic left foot ulcer with infection over the dorsum of the first metatarsal, nonhealing. Sepsis secondary to above Peripheral vascular disease with prior history of left third and fourth toe amputation Lactic acidosis, resolved. Diabetes type 2 [id number]-[id number] History of DVT on anticoagulation Hypertension Hyperlipidemia Current everyday smoker Obesity with BMI of 35.7 GI prophylaxis DVT prophylaxis. Eliquis is on hold for possible surgical intervention. Full code Plan: Patient is currently maintained on IV antibiotics in the form of cefepime and vancomycin with infectious disease following. Vascular surgery Dr. Arora following for left below the knee amputation today. Currently nothing by mouth and will await surgical report Continue with pain management and have increased [place] as patient was recently started on [place] tens in the outpatient setting by primary care provider and patient is reporting his pain is severe . Would recommend discontinuing pain pump post surgery Patient will be continued on IV hydration with normal saline. Follow-up labs ordered for a.m. Patient does have a PICC line in the event he may require IV antibiotics on discharge. Will discuss further with infectious disease on treatment plan moving forward post surgery Recommend PT/OT therapy evaluation after surgery Continue with pain management with Dilaudid. Home medications reviewed and resumed Continue insulin sliding scale an continue to monitor Accu-Cheks before meals and at bedtime Prognosis is guarded Objective - Vital Signs Vital signs: Vital Signs Temp 98.9 F 05/10/23 11:31 Pulse 78 05/10/23 20:38 Resp 18 05/10/23 11:31 BP 159/74 05/10/23 11:31 Pulse Ox 97 05/10/23 11:31 FiO2 Intake & Output 05/10/23 05/10/23 05/11/23 06:59 18:59 06:59 Output Total 2 Balance -2 Output: Urine 2 Other: Voiding Method Bedside Commode Urinal # Voids 300 # Bowel Movements 1 - Labs CBC & Chem 7: 05/10/23 05:48 05/10/23 05:48 Labs: Abnormal Lab Results - Last 24 Hours (Table) 05/10/23 05/10/23 05/10/23 Range/Units 05:48 05:48 07:29 RBC 3.23 L (4.40-5.60) X 10*6/uL Hgb 10.4 L (13.0-17.0) d/dL Hct 30.9 L (39.6-50.0) % MCH 32.2 H (27.0-32.0) pg Eosinophils # 0.41 H (0.04-0.35) X 10*3/uL Sodium 136 L (137-145) mmol/L Glucose 154 H (74-99) mg/dL POC Glucose (mg/dL) 161 H (70-110) mg/dL 05/10/23 05/10/23 05/10/23 Range/Units 11:33 17:01 20:27 RBC (4.40-5.60) X 10*6/uL Hgb (13.0-17.0) d/dL Hct (39.6-50.0) % MCH (27.0-32.0) pg Eosinophils # (0.04-0.35) X 10*3/uL Sodium (137-145) mmol/L Glucose (74-99) mg/dL POC Glucose (mg/dL) 185 H 145 H 185 H (70-110) mg/dL
[2023-05-11 07:09] LABS: African American GFR (CKD) >90 (>60 ml/min/1.73 sqM); Anion Gap 6 mmol/L; Blood Urea Nitrogen 7 mg/dL (9-20); Calcium 8.9 mg/dL (8.4-10.2); Carbon Dioxide 27 mmol/L (22-30); Chloride 105 mmol/L (98-107); Glucose 120 mg/dL (74-99); Non-African American GFR(CKD) >90 (>60 ml/min/1.73 sqM); Potassium 3.5 mmol/L (3.5-5.1); Sodium 138 mmol/L (137-145)
[2023-05-11 07:31] LABS: Glucose,Whole Blood 139 mg/dL (70-110)
[2023-05-11] MEDS: INSULIN ASPART (NovoLOG) 100 UNIT/ML VIAL SQ SCH ×4 (07:36→21:23)
[2023-05-11] MEDS: IPRATROPIUM-ALBUTEROL 3 ML NEB INHALATION SCH ×4 (07:46→19:24)
[2023-05-11] MEDS: METOPROLOL TARTRATE 50 MG TAB PO SCH ×2 (08:08→21:24)
[2023-05-11] MEDS: buPROPion SR 150 MG TABLET.ER PO SCH ×2 (08:08→21:24)
[2023-05-11] MEDS: HYDROcodone/APAP 10-325MG 1 EACH TAB PO PRN ×3 (08:08→21:55)
[2023-05-11] MEDS: LOSARTAN 50 MG TAB PO SCH (08:08)
[2023-05-11] MEDS: SENNOSIDES 8.6 MG TAB PO SCH (08:08)
[2023-05-11] MEDS: DULoxetine HCL 30 MG CAPSULE.DR PO SCH (08:08)
[2023-05-11] MEDS: GABAPENTIN 300 MG CAP PO SCH ×3 (08:08→21:24)
[2023-05-11] MEDS: NICOTINE 14MG/24HR PATCH TRANSDERM SCH (08:09)
[2023-05-11] MEDS: HYDROmorphone 1 MG/ML 1 ML SYRINGE IVP PRN ×3 (10:54→19:39)
--- NOTE | 2023-05-11 12:01 | P.PN ---
Subjective Progress Note Date: 05/11/23 Patient is seen and examined today as a follow-up. He is postop day #3 for left ekylr-[id number]-[id number] amputation. Patient states he still having significant pain and getting muscle spasms in his left thigh. Pily with [employer] at bedside when arriving. 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 He has been afebrile. Objective - Vital Signs Vital signs: Vital Signs Temp 98.2 F 05/11/23 07:16 Pulse 96 05/11/23 07:57 Resp 18 05/11/23 07:16 BP 190/93 05/11/23 07:16 Pulse Ox 97 05/11/23 07:16 FiO2 Intake & Output 05/10/23 05/11/23 05/11/23 18:59 06:59 18:59 Other: Voiding Method Bedside Commode Urinal # Voids 3 # Bowel Movements 1 - Exam General appearance: The patient is alert, oriented, appears in no acute distress. HET: Head is normocephalic and atraumatic. Pupils are equal and reactive. Neck: Supple. Heart: Regular. Lungs: Equal expansion, normal respiratory effort. Abdomen: Soft, nontender, nondistended. Extremities: Normal skin color and turgor. Left BKA stump with herberth well approximated, no erythema, minimal serosanguineous drainage. Neurological: No focal deficits. Complains of left foot/leg phantom pain. - Labs CBC & Chem 7: 05/10/23 05:48 05/11/23 06:23 Labs: Abnormal Lab Results - Last 24 Hours (Table) 05/10/23 05/10/23 05/10/23 Range/Units 05:48 11:33 17:01 RBC 3.23 L (4.40-5.60) X 10*6/uL Hgb 10.4 L (13.0-17.0) d/dL Hct 30.9 L (39.6-50.0) % MCH 32.2 H (27.0-32.0) pg Eosinophils # 0.41 H (0.04-0.35) X 10*3/uL BUN (9-20) mg/dL Creatinine (0.66-1.25) mg/dL Glucose (74-99) mg/dL POC Glucose (mg/dL) 185 H 145 H (70-110) mg/dL 05/10/23 05/11/23 05/11/23 Range/Units 20:27 06:23 07:19 RBC (4.40-5.60) X 10*6/uL Hgb (13.0-17.0) d/dL Hct (39.6-50.0) % MCH (27.0-32.0) pg Eosinophils # (0.04-0.35) X 10*3/uL BUN 7 L (9-20) mg/dL Creatinine 0.60 L (0.66-1.25) mg/dL Glucose 120 H (74-99) mg/dL POC Glucose (mg/dL) 185 H 139 H (70-110) mg/dL Assessment and Plan Assessment: 1. Infected left foot diabetic ulcers status post left below the knee amputation 2. Peripheral arterial disease with reported history of revascularization 3. History of third and fourth toe amputation 4. Diabetes mellitus 5. Hypertension 6. Hyperlipidemia 7. COPD 8. Tobacco abuse Plan: 1. Consult to physical therapy 2. 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 May resume Eliquis 4. Discontinue SAFETY LAMP KEEPER pump. Increase gabapentin to 900 mg 3 times a day, add Valium 2 mg 3 times a day. Patient to follow-up with Dr. Goodman his ski edge painter upon discharge for further management of pain medications 5. Continue smoking cessation, patient currently has nicotine patch 6. Recommend subacute rehab, this was discussed with the patient The impression and plan of care has been dictated as directed. Dr. Arora I performed a history and examination of this patient, discussed the same with the dictator. I agree with the dictator's note ,documented as a scribe. Any additional findings or plans will be noted.
[2023-05-11 12:15] LABS: Glucose,Whole Blood 172 mg/dL (70-110)
[2023-05-11] MEDS: LACTATED RINGERS 1,000 ML IV SCH (14:50)
[2023-05-11] MEDS: diazePAM 2 MG TAB PO SCH ×2 (16:06→21:24)
--- NOTE | 2023-05-11 17:09 | P.PN ---
Subjective Progress Note Date: 05/11/23 Principal diagnosis: Left foot wound and cellulitis Patient is a 62-year-old male with a past medical history significant for diabetes mellitus hypertension hyperlipidemia DVT COPD patient presenting to the hospital with worsening pain swelling redness to the left foot , patient with a chronic nonhealing wound to the left foot and did have history of PAD. Patient is status post left [id number] amputation completed on 05/08/2023 On today's evaluation that is 05/11/2023, the patient continues to be afebrile, the patient is breathing comfortably , the patient denies chest pain or cough , the patient denies having any nausea or vomiting ,, no abdominal pain or diarrhea , the patient continue to complain of pain to the left BKA stump Patient white count is normal at 9.50 as of yesterday, creatinine 0.60 , left foot culture positive for Proteus, blood culture were negative Objective - Vital Signs Vital signs: Vital Signs Temp 98.8 F 05/11/23 11:22 Pulse 67 05/11/23 11:22 Resp 18 05/11/23 11:22 BP 173/86 05/11/23 11:22 Pulse Ox 95 05/11/23 11:22 FiO2 Intake & Output 05/10/23 05/11/23 05/11/23 18:59 06:59 18:59 Other: Voiding Method Bedside Commode Urinal # Voids 3 # Bowel Movements 1 - Exam GENERAL DESCRIPTION: Middle-aged male lying in bed in no distress RESPIRATORY SYSTEM: Unlabored breathing , decreased breath sounds at bases HEART: S1 S2 regular rate and rhythm , ABDOMEN: Soft , no tenderness EXTREMITIES: Left BKA stump is currently dressed with OR dressing - Labs CBC & Chem 7: 05/10/23 05:48 05/11/23 06:23 Labs: Abnormal Lab Results - Last 24 Hours (Table) 05/10/23 05/10/23 05/11/23 Range/Units 17:01 20:27 06:23 BUN 7 L (9-20) mg/dL Creatinine 0.60 L (0.66-1.25) mg/dL Glucose 120 H (74-99) mg/dL POC Glucose (mg/dL) 145 H 185 H (70-110) mg/dL 05/11/23 05/11/23 Range/Units 07:19 12:11 BUN (9-20) mg/dL Creatinine (0.66-1.25) mg/dL Glucose (74-99) mg/dL POC Glucose (mg/dL) 139 H 172 H (70-110) mg/dL Assessment and Plan (1) Diabetic wet gangrene of the foot Current Visit: Yes Status: Acute Code(s): E11.52 - TYPE 2 DIABETES W DIABETIC PERIPHERAL ANGIOPATHY W GANGRENE SNOMED Code(s): 060326190 Plan: 1patient with a chronic nonhealing wound to the left foot previous amputation of the third and fourth toe now presenting presenting to the hospital with w orsening pain did have evidence of low-grade fever elevated white count concerning for wound infection we will need to cover for both gram-positive as well as gram-negative pathogen. 2patient is status post left below the knee amputation 3patient local cultures did grew Proteus, patient currently on Rocephin 1 g daily can be discontinued on discharge if the patient continued to improve Dictation was produced using [employer] dictation software. please excuse any grammatical, word or spelling errors. Time with Patient: Less than 30
[2023-05-11 17:46] LABS: Glucose,Whole Blood 182 mg/dL (70-110)
[2023-05-11 20:02] LABS: Glucose,Whole Blood 196 mg/dL (70-110)
[2023-05-11] MEDS: ATORVASTATIN 80 MG TAB PO SCH (21:24)
[2023-05-12] MEDS: HYDROmorphone 1 MG/ML 1 ML SYRINGE IVP PRN ×3 (01:44→10:31)
--- NOTE | 2023-05-12 02:23 | P.PN ---
Subjective Progress Note Date: 05/11/23 Patient is a 62-year-old male with a known history of hypertension, hyperlipidemia, diabetes type 2 [id number]-[id number], history of DVT on anticoagulation with Eliquis, COPD, current everyday smoker and depression and marijuana use presents to ER with complaints of left foot infection. Patient has chronic diabetic ulcer on the dorsum of first metatarsal of the left foot. Also has history of third and fourth ray amputations. Patient has been having bleeding wound and follow-up with wound care clinic. Over the last few days patient has been having worsening pain and purulent discharge. Patient presented to ER. Not on any current antibiotics at home. Patient was having fever with Tmax 100.2 on admission and also tachycardic with heart rate 111. Blood pressure is also elevated on admission. Laboratory showed WBC 11.7 hemoglobin 15.1 and platelets 321 Sodium 138 potassium 4.5 chloride 106 bicarb is 19 BUN 13 and creatinine 0.78 and blood sugar is 154 and lactic acid 2.7. Liver edge is not elevated. CRP level is 0.6 and ESR 16. 05/07/2023 Patient is seen and evaluated in follow-up this morning maintained on IV antibiotics with infectious disease and vascular surgery following. Patient is tentatively scheduled to undergo amputation possibly below the knee amputation of the left with Dr. Montes vascular surgery tomorrow and patient will be nothing by mouth at midnight. Patient continues to report severe 10/10 pain and have adjusted pain medications. Patient lost IV access and is a difficult stick and discussed further with infectious disease and will order PICC line as preliminary cultures are showing gram-negative and awaiting finalized cultures as patient may require IV antibiotics on discharge. Patient is currently afebrile and white count is normal at 9.07, other labs within normal limits and blood sugars are being monitored. Blood sugars well controlled on current regimen and will continue. Hemoglobin A1c is 8.1. 05/08/2023 Patient is seen and evaluated in follow-up today currently nothing by mouth as patient is scheduled to undergo left BKA. Patient is somewhat anxious reporting pain continues to be severe 10/10 and is also requesting a breathing treatment. Patient will continue on IV antibiotics and does have a PICC line with infectious disease following. Will await surgical report and also recommended PT/OT therapy. Patient is currently afebrile reported chest pain or shortness of breath. 05/11/2023 Patient is seen in follow-up status post left BKA with vascular surgery and infectious disease following. Patient is maintained on IV ceftriaxone and will continue for now and per ID recommendations will not require antibiotics on discharge. Cultures finally showing Proteus. Vascular surgery following and will be discontinuing Dilaudid pump. Continue pain medications and adjustments being made. Patient is afebrile with no reported chest pain or shortness of breath. Patient evaluated by physical therapy and patient reports plan is returning home. Social work following arranging for discharge planning needs. patient will need close outpatient follow-up with vascular surgery. Surgical dressing was changed today patient being fitted for stump strawhat sizer. Continue local wound care. Review of systems: Constitutional: No reports of fatigue, fever, or chills Cardiovascular: No reports of chest pain or palpitations Respiratory: No reports of shortness of breath or cough GI: No reports of nausea, vomiting, or diarrhea : No reports of dysuria or retention Neurovascular: reports of generalized weakness , reports continued extreme left lower extremity pain All medications have been reviewed PHYSICAL EXAMINATION: Patient is lying in the bed, awake alert and oriented.. Well-developed, well- nourished Obese HEENT: Normocephalic. Neck is supple. Pupils reactive. Nostrils clear. Oral cavity is moist. Neck reveals no JVD, carotid bruits, or thyromegaly. CHEST EXAMINATION: Trachea is central. Symmetrical expansion. Lung garcía clear to auscultation and percussion. CARDIAC: Normal S1, S2 with no gallops. No murmurs ABDOMEN: Soft. Bowel sounds present. Nontender. No organomegaly. No abdominal bruits. Extremities: reveal no edema. Patient status post left BKA Neurologically awake, alert, oriented x3 with well-coordinated movements. No focal deficits noted Skin: No rash or skin lesions. Psychiatric: Cooperative. Non-suicidal Musculoskeletal: No joint swelling or deformity. Normal range of motion. Assessment: Diabetic left foot ulcer with infection over the dorsum of the first metatarsal, nonhealing. Status post left BKA Sepsis secondary to above with cultures growing Proteus Peripheral vascular disease with prior history of left third and fourth toe amputation Lactic acidosis, resolved. Diabetes type 2 [id number] History of DVT on anticoagulation Hypertension Hyperlipidemia Current everyday smoker Obesity with BMI of 35.7 GI prophylaxis DVT prophylaxis. Eliquis to be resumed Full code Plan: Patient is currently maintained on IV antibiotics in the form of ceftriaxone with infectious disease following. Cultures finally showing Proteus patient is status post BKA with vascular surgery Patient to work with physical therapy and patient reports he is going home. Case management/social work following arranged for discharge planning needs as patient may need home care for continued wound care Dilaudid pump to be discontinued and medication adjustments being done per vascular Will discuss with vascular flow resuming anticoagulation Continue insulin sliding scale an continue to monitor Accu-Cheks before meals and at bedtime Prognosis is guarded Possible discharge next 24 hours The impression and plan of care has been dictated by Lillie Matt, Nurse Practitioner as directed. Dr. Jaxson MD I have performed a history and examination and MDM of this patient, discussed the same with the dictator, and agree with the dictator's assessment and plan as written ,documented as a scribe. Based on total visit time, I have performed more than 50% of the visit. Objective - Vital Signs Vital signs: Vital Signs Temp 98.8 F 05/11/23 11:22 Pulse 67 05/11/23 11:22 Resp 18 05/11/23 11:22 BP 173/86 05/11/23 11:22 Pulse Ox 95 05/11/23 11:22 FiO2 Intake & Output 05/10/23 05/11/23 05/11/23 18:59 06:59 18:59 Other: Voiding Method Bedside Commode Urinal # Voids 3 # Bowel Movements 1 - Labs CBC & Chem 7: 05/10/23 05:48 05/11/23 06:23 Labs: Abnormal Lab Results - Last 24 Hours (Table) 05/10/23 05/10/23 05/11/23 Range/Units 17:01 20:27 06:23 BUN 7 L (9-20) mg/dL Creatinine 0.60 L (0.66-1.25) mg/dL Glucose 120 H (74-99) mg/dL POC Glucose (mg/dL) 145 H 185 H (70-110) mg/dL 05/11/23 05/11/23 Range/Units 07:19 12:11 BUN (9-20) mg/dL Creatinine (0.66-1.25) mg/dL Glucose (74-99) mg/dL POC Glucose (mg/dL) 139 H 172 H (70-110) mg/dL Microbiology - Last 24 Hours (Table) 05/06/23 01:10 Blood Culture - Final Blood 05/06/23 01:26 Blood Culture - Final Blood
[2023-05-12] MEDS: IPRATROPIUM-ALBUTEROL 3 ML NEB INHALATION PRN (02:34)
[2023-05-12] MEDS: HYDROcodone/APAP 10-325MG 1 EACH TAB PO PRN ×2 (03:53→10:44)
[2023-05-12 07:23] LABS: Glucose,Whole Blood 163 mg/dL (70-110)
[2023-05-12] MEDS: IPRATROPIUM-ALBUTEROL 3 ML NEB INHALATION SCH ×2 (07:31→10:47)
[2023-05-12 08:09] VITALS: BP 165/83; RESP 19; TEMP 98.3
[2023-05-12] MEDS: diazePAM 2 MG TAB PO SCH (08:11)
[2023-05-12] MEDS: INSULIN ASPART (NovoLOG) 100 UNIT/ML VIAL SQ SCH (08:11)
[2023-05-12] MEDS: NICOTINE 14MG/24HR PATCH TRANSDERM SCH (08:11)
[2023-05-12] MEDS: LOSARTAN 50 MG TAB PO SCH (08:12)
[2023-05-12] MEDS: buPROPion SR 150 MG TABLET.ER PO SCH (08:12)
[2023-05-12] MEDS: SENNOSIDES 8.6 MG TAB PO SCH (08:12)
[2023-05-12] MEDS: GABAPENTIN 300 MG CAP PO SCH (08:12)
[2023-05-12] MEDS: METOPROLOL TARTRATE 50 MG TAB PO SCH (08:12)
[2023-05-12] MEDS: DULoxetine HCL 30 MG CAPSULE.DR PO SCH (08:12)
[2023-05-12] MEDS: LACTATED RINGERS 1,000 ML IV SCH (09:37)
[2023-05-12 10:57] VITALS: PULSE 64
--- NOTE | 2023-05-12 11:41 | P.PN ---
Subjective Progress Note Date: 05/12/23 Patient is seen and examined today as a follow-up. He is postop day #4 for left mayyb-[id number]-[id number] amputation. States that he is still having pain in the left lower extremity, although improved from yesterday. Rigid dressing is in place, states he cannot wear his knee immobilizer due to discomfort. Patient states that he is being discharged and he wants to go home however subacute rehab has been recommended for the patient. He states he has to go home and is refusing subacute rehab. Objective - Vital Signs Vital signs: Vital Signs Temp 98.3 F 05/12/23 07:15 Pulse 68 05/12/23 07:40 Resp 19 05/12/23 07:15 BP 165/83 05/12/23 07:15 Pulse Ox 96 05/12/23 07:15 FiO2 Intake & Output 05/11/23 05/12/23 05/12/23 18:59 06:59 18:59 Other: Voiding Method Bedside Commode Bedside Commode Urinal Urinal # Voids 4 - Exam General appearance: The patient is alert, oriented, appears in no acute distress. HET: Head is normocephalic and atraumatic. Pupils are equal and reactive. Neck: Supple. Heart: Regular. Lungs: Equal expansion, normal respiratory effort. Abdomen: Soft, nontender, nondistended. Extremities: Normal skin color and turgor. Left BKA stump with rigid dressing in place. Neurological: No focal deficits. Alert and oriented 3. - Labs CBC & Chem 7: 05/10/23 05:48 05/11/23 06:23 Labs: Abnormal Lab Results - Last 24 Hours (Table) 05/11/23 05/11/23 05/11/23 Range/Units 12:11 17:44 20:01 POC Glucose (mg/dL) 172 H 182 H 196 H (70-110) mg/dL 05/12/23 Range/Units 07:06 POC Glucose (mg/dL) 163 H (70-110) mg/dL Microbiology - Last 24 Hours (Table) 05/06/23 01:10 Blood Culture - Final Blood 05/06/23 01:26 Blood Culture - Final Blood Assessment and Plan Assessment: 1. Infected left foot diabetic ulcers status post left below the knee amputation 2. Peripheral arterial disease with reported history of revascularization 3. History of third and fourth toe amputation 4. Diabetes mellitus 5. Hypertension 6. Hyperlipidemia 7. COPD 8. Tobacco abuse 9. History of chronic pain, on chronic pain medications Plan: 1. Consult to physical therapy 2. 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 May resume Eliquis 4. Continue gabapentin to 900 mg 3 times a day, add Valium 2 mg 3 times a day. Patient to follow-up with Dr. Goodman his auto painter helper upon discharge for further management of pain medications 5. Continue smoking cessation, patient currently has nicotine patch 6. Recommend subacute rehab, this was discussed with the patient was refusing subacute rehab. Patient states he is going home. Discussed with patient risk of falling and injury. He verbalizes understanding. The impression and plan of care has been dictated as directed. Dr. Alford I performed a history and examination of this patient, discussed the same with the dictator. I agree with the dictator's note ,documented as a scribe. Any additional findings or plans will be noted.
[2023-05-12 12:29] LABS: Glucose,Whole Blood 185 mg/dL (70-110)
--- NOTE | 2023-05-13 15:42 | P.DS ---
Providers Date of admission: 05/06/23 01:02 Expected date of discharge: 05/12/23 Attending physician: Rosalee Puri Consults: 05/06/23 01:06 Consult Physician Urgent Consulting Provider: Gaurav Jean-Baptiste Consult Reason/Comments: Wet gangrene of left foot Do you want consulting provider notified?: Yes 05/06/23 08:24 Consult Physician Urgent Consulting Provider: Gabe Corrigan Consult Reason/Comments: wet gangrene, PAD, known to you Do you want consulting provider notified?: Yes 05/06/23 16:20 Consult Physician Urgent Consulting Provider: Viridiana Arora Consult Reason/Comments: gangrenous left foot Do you want consulting provider notified?: Yes Primary care physician: Evelyn Cash Hospital Course: Final diagnosis Diabetic left foot ulcer with infection over the dorsum of the first metatarsal, nonhealing. Status post left BKA Sepsis secondary to above with cultures growing Proteus Peripheral vascular disease with prior history of left third and fourth toe amputation Lactic acidosis, resolved. Diabetes type 2 [id number]-[id number] History of DVT on anticoagulation Hypertension Hyperlipidemia Current everyday smoker Obesity with BMI of 35.7 GI prophylaxis DVT prophylaxis. Eliquis to be resumed Full code Discharge disposition Patient is being discharged in a stable condition with guarded prognosis to home with home care . Patient will follow-up with Dr. Branden Puri in the outpatient setting upon discharge. Patient is to follow-up with wound care center in vascular surgery outpatient as scheduled. Total time taken is greater than 35 minutes. Hospital course This is a 62-year-old male who was recently admitted with diabetic foot ulcer nonhealing with concerns of infection with previous history of peripheral vascular disease and left third and fourth toe amputation. Patient being closely monitored with multiple medical consultations following including vascular surgery and patient is status post left BKA. Patient maintained on antibiotics and will not require antibiotics on discharge per ID recommendations. Patient was evaluated by physical therapy instructed to go to rehab although patient is refusing and will be going home with home care being arranged. Patient to follow-up with vascular surgery along with the wound center in the outpatient setting. Patient also follow-up with his paint specialist and primary care provider on discharge. Patient has been cleared by consultations for discharge today. Please refer to consultation notes for further HPI. Currently no reports of chest pain, shortness of breath, or palpitations. Patient is afebrile. No reports of nausea or vomiting and patient is tolerating diet. Patient will be going home with home care today. Guarded prognosis and high risk for readmission given patient's comorbidities and noncompliance Physical exam: Gen: This is a 62-year-old male who is awake, alert and oriented 3, well- developed, well-nourished, obese HEENT: Head is atraumatic, normocephalic. Pupils equal, round. Sclerae is anicteric. NECK: Supple. No JVD. No lymphadenopathy. No thyromegaly. LUNGS: Clear to auscultation. No wheezes or rhonchi. No intercostal retrac tions. HEART: Regular rate and rhythm. No murmur. ABDOMEN: Soft. Obese Bowel sounds are present. No masses. No tenderness. EXTREMITIES: No pedal edema. No calf tenderness. Recent left BKA with dressing noted NEUROLOGICAL: Patient is awake, alert and oriented x3. Cranial nerves 2 through 12 are grossly intact. Diffusely weak Please refer to medication reconciliation sheet for a list of medications. The impression and plan of care has been dictated by Lillie Matt, Nurse Practitioner as directed. Dr. Jaxson MD I have performed a history and examination and MDM of this patient, discussed the same with the dictator, and agree with the dictator's assessment and plan as written ,documented as a scribe. Based on total visit time, I have performed more than 50% of the visit. Patient Condition at Discharge: Fair Plan - Discharge Summary New Discharge Prescriptions: New Gabapentin [Neurontin] 900 mg PO TID #0 cap diazePAM [Valium] 2 mg PO TID #9 tab Ipratropium-Albuterol Nebulize [Duoneb 0.5 mg-3 mg/3 ml Soln] 3 ml INHALATION RT-QID #100 each Nicotine 14Mg/24Hr Patch [Habitrol] 1 patch TRANSDERM DAILY patch Sennosides [Senokot] 8.6 mg PO DAILY #30 tab Continue Albuterol Inhaler [Ventolin Hfa Inhaler] 2 puff INHALATION RT-QID PRN #1 inhaler PRN Reason: Shortness Of Breath Ipratropium-Albuterol Nebulize [Duoneb 0.5 mg-3 mg/3 ml Soln] 3 ml INHALATION RT-QID PRN PRN Reason: Shortness Of Breath buPROPion SR [Wellbutrin SR] 150 mg PO BID Metoprolol Tartrate [Lopressor] 50 mg PO BID Dulaglutide [Trulicity] 4.5 mg SQ Q7D tiZANidine [Zanaflex] 4 mg PO TID PRN PRN Reason: Pain Losartan Potassium [Cozaar] 100 mg PO DAILY Empagliflozin [Jardiance] 10 mg PO DAILY metFORMIN HCL [Glucophage] 1,000 mg PO BID-W/MEALS Ergocalciferol (Vitamin D2) [Drisdol (50,000 Iu)] 1,250 mcg PO Q7D Apixaban [Eliquis] 2.5 mg PO BID Atorvastatin Calcium [Lipitor] 80 mg PO HS EPINEPHrine (Auto Inject) [Epipen] 0.3 mg IM ONCE PRN PRN Reason: Anaphylaxis Loratadine [Claritin] 10 mg PO DAILY DULoxetine HCL [Cymbalta] 30 mg PO DAILY Changed HYDROcodone/APAP 7.5-325MG [[place] 7.5-325] 1 tab PO TID PRN #9 tab PRN Reason: Pain Discontinued Gabapentin 600 mg PO TID Discharge Medication List Albuterol Inhaler [Ventolin Hfa Inhaler] 2 puff INHALATION RT-QID PRN #1 inhaler 08/13/20 [Rx] Apixaban [Eliquis] 2.5 mg PO BID 04/12/21 [History] Atorvastatin Calcium [Lipitor] 80 mg PO HS 04/12/21 [History] Ergocalciferol (Vitamin D2) [Drisdol (50,000 Iu)] 1,250 mcg PO Q7D 04/12/21 [History] Ipratropium-Albuterol Nebulize [Duoneb 0.5 mg-3 mg/3 ml Soln] 3 ml INHALATION RT-QID PRN 04/12/21 [History] Metoprolol Tartrate [Lopressor] 50 mg PO BID 04/12/21 [History] buPROPion SR [Wellbutrin SR] 150 mg PO BID 04/12/21 [History] metFORMIN HCL [Glucophage] 1,000 mg PO BID-W/MEALS 04/12/21 [History] DULoxetine HCL [Cymbalta] 30 mg PO DAILY 05/06/23 [History] Dulaglutide [Trulicity] 4.5 mg SQ Q7D 05/06/23 [History] EPINEPHrine (Auto Inject) [Epipen] 0.3 mg IM ONCE PRN 05/06/23 [History] Empagliflozin [Jardiance] 10 mg PO DAILY 05/06/23 [History] Loratadine [Claritin] 10 mg PO DAILY 05/06/23 [History] Losartan Potassium [Cozaar] 100 mg PO DAILY 05/06/23 [History] tiZANidine [Zanaflex] 4 mg PO TID PRN 05/06/23 [History] Gabapentin [Neurontin] 900 mg PO TID #0 cap 05/12/23 [Rx] HYDROcodone/APAP 7.5-325MG [[place] 7.5-325] 1 tab PO TID PRN #9 tab 05/12/23 [Rx] Ipratropium-Albuterol Nebulize [Duoneb 0.5 mg-3 mg/3 ml Soln] 3 ml INHALATION RT-QID #100 each 05/12/23 [Rx] Nicotine 14Mg/24Hr Patch [Habitrol] 1 patch TRANSDERM DAILY patch 05/12/23 [Rx] Sennosides [Senokot] 8.6 mg PO DAILY #30 tab 05/12/23 [Rx] diazePAM [Valium] 2 mg PO TID #9 tab 05/12/23 [Rx] Follow up Appointment(s)/Referral(s): [facility] [NON-STAFF] - 1 Week Viridiana Arora DO [STAFF PHYSICIAN] - 05/27/23 12:00 pm Evelyn Cash MD [Primary Care Provider] - 05/20/23 3:00 pm () [facility], [NON-STAFF] - 1 Week Patient Instructions/Handouts: Hydrocodone/Acetaminophen (By mouth), Diazepam (By mouth), Ipratropium/Albuterol (By breathing), Senna (By mouth) Activity/Diet/Wound Care/Special Instructions: Activity Limited until follow-up Follow-up with vascular surgery Continue wound care Follow-up with primary care provider this week Continue with current medications Discharge Disposition: HOME WITH HOME HEALTH SERVICES
== END 2023-05-12 12:46 | disposition home health service (06) | DRG 710 ==
LOC: EC 22:19 → 5NMEDONC 05-06 01:02
PROVIDERS: ADMIT Hospitalist; ATTEND Hospitalist
PROC: 02HV33Z Insertion of Infusion Device into Superior Vena Cava, Percutaneous Approach (ICD-10-PCS; 2023-05-07)
PROC: 0Y6J0Z1 Detachment at Left Lower Leg, High, Open Approach (ICD-10-PCS; principal; 2023-05-08 11:55)
DX: A41.50 Gram-negative sepsis, unspecified (principal); E11.52 Type 2 diabetes mellitus with diabetic peripheral angiopathy with gangrene; I96 Gangrene, not elsewhere classified; Z79.84 Long term (current) use of oral hypoglycemic drugs; B96.4 Proteus (mirabilis) (morganii) as the cause of diseases classified elsewhere; E11.621 Type 2 diabetes mellitus with foot ulcer; E78.5 Hyperlipidemia, unspecified; F17.210 Nicotine dependence, cigarettes, uncomplicated; F32.A Depression, unspecified; G54.6 Phantom limb syndrome with pain; I10 Essential (primary) hypertension; J44.9 Chronic obstructive pulmonary disease, unspecified; E11.628 Type 2 diabetes mellitus with other skin complications; L03.116 Cellulitis of left lower limb; L97.529 Non-pressure chronic ulcer of other part of left foot with unspecified severity; G89.29 Other chronic pain; H40.9 Unspecified glaucoma; R26.2 Difficulty in walking, not elsewhere classified; E87.20 Acidosis, unspecified; E66.9 Obesity, unspecified; K08.109 Complete loss of teeth, unspecified cause, unspecified class; Z68.35 Body mass index [BMI] 35.0-35.9, adult; Z79.01 Long term (current) use of anticoagulants; Z79.899 Other long term (current) drug therapy; Z82.49 Family history of ischemic heart disease and other diseases of the circulatory system; Z82.5 Family history of asthma and other chronic lower respiratory diseases; Z83.3 Family history of diabetes mellitus; Z86.718 Personal history of other venous thrombosis and embolism; Z91.199 Patient's noncompliance with other medical treatment and regimen due to unspecified reason; Z53.29 Procedure and treatment not carried out because of patient's decision for other reasons; Z28.310 Unvaccinated for COVID-19; Z88.5 Allergy status to narcotic agent; Z88.0 Allergy status to penicillin; Z91.030 Bee allergy status; Z89.422 Acquired absence of other left toe(s)
CPT/HCPCS: 36415; 36573; 80048; 80053; 82565; 83036; 83605; 83735; 85025; 85652; 86140; 86850; 86900; 86901; 87040; 87070; 87077; 87186; 87205; 93923; 94640; 96361; 96365; 96366; 96367; 96375; 96376; 99285